=== PATIENT | female | born 1975 | race Caucasian/White ===

== ENCOUNTER 2016-06-12 08:20 | Inpatient (IN) ==
[2016-06-12] MEDS ORDERED: Ipratropium/Albuterol Neb 3 ML IH ONE (08:33)
[2016-06-12] MEDS ORDERED: methylPREDNISolone 125 MG/2 ML VIAL IVP ONE (08:33)
--- NOTE | 2016-06-12 08:55 | Emergency Department Note ---
Disposition Clinical Impression: Wheezing, Asthma exacerbation Dyspnea Qualifiers: Dyspnea type: unspecified Qualified Code(s): R06.00 - Dyspnea, unspecified Disposition: Admitted As Inpatient Condition: Fair Time of Disposition: 10:21 SOB HPI - General Chief Complaint: ED Shortness of Breath/Dyspnea Stated Complaint: difficulty breathing/cough Time Seen by Provider: 06/12/16 08:25 Source: patient Limitations: no limitations Nursing Notes Reviewed: Yes Vital Signs Reviewed: Yes - History of Present Illness Patient is a 41-year-old female who presents to [facility] ED with a chief complaint of difficulty breathing. States her symptoms started on Monday, June 07. States her father was diagnosed with influenza on Monday. States her mother was diagnosed with influenza and then intubated and sent to ICU and also diagnosed with influenza. Past medical history significant for asthma for which she takes an inhaler. States she has been using her albuterol breathing treatments every 4 hours as well as her albuterol inhaler in between. States she is having more and more troubles breathing. Patient arrives with oxygen saturation 97% on room air. She does have diffuse audible wheezing throughout bilateral lungs. Patient states she has never been intubated or required any hospitalization for her asthma. Patient is a nonsmoker. Pt Subjective Complaint: shortness of breath Onset (ago): day(s) Context: recent illness Severity: moderate Consistency/Duration: gradually worsening Improves with: nothing Worsens with: exertion Known history of: asthma Associated symptoms: Reports: chest pain, fever, cough. Denies: nausea/vomiting , abdominal pain Treatment prior to arrival: bronchodilator Cough present: Yes Cough Description: Involuntary Cough Frequency: Intermittent Sputum production: No Sputum Amount: Small Sputum Color: Birdsong Tinged - Related Data Home oxygen amount: none Home Medications Medication Instructions Recorded Confirmed Amlodipine Besylate [Norvasc] 5 mg PO BID 10/14/14 06/12/16 OxyCODONE/APAP 10/325 [Percocet 1 tab PO Q6H PRN 10/14/14 06/12/16 10/325] Promethazine [Phenergan] 25 mg PO Q6HR PRN 11/05/14 06/12/16 SUMAtriptan [Imitrex] 100 mg PO AD PRN 05/26/15 06/12/16 Albuterol Sulfate [Ventolin Hfa] 1 - 2 puff IH Q6H PRN 06/12/16 06/12/16 Budesonide/Formoterol 160/4.5 2 puff IH BID 06/12/16 06/12/16 [Symbicort 160/4.5] Metoprolol XL (24 HR) Succ [Toprol 25 mg PO DAILY 06/12/16 06/12/16 XL] Previous Rx's Medication Instructions Recorded Pantoprazole Sodium [Protonix] 40 mg PO BID #60 granpkt. 10/18/14 Allergies Allergy/AdvReac Type Severity Reaction Status Date / Time aspirin [ASA] Allergy See Verified 04/22/16 00:06 Comments Barbiturates Allergy Hives Verified 04/22/16 00:06 diphenhydramine Allergy Abdominal Verified 04/22/16 00:06 [From Benadryl] Pain ketorolac [From Toradol] Allergy See Verified 04/22/16 00:06 Comments NSAIDS (Non-Steroidal Allergy See Verified 04/22/16 00:06 Anti-Inflamma Comments Penicillins Allergy Swelling Verified 04/22/16 00:06 of Lip/Tongue/Throat Sulfa (Sulfonamide Allergy Hives Verified 04/22/16 00:06 Antibiotics) All systems ED: reviewed and negative except as stated. Past Medical History - Past Medical History Attestation: Yes The following information was validated with the patient. Source: patient Medical history: Reports: asthma, hypertension Surgical history: Reports: cholecystectomy, , appendectomy Psychiatric history: Reports: no psych history PROJECT CONSTRUCTION MANAGER history: Reports: no PROJECT CONSTRUCTION MANAGER history - Social History Smoking Status: Never smoker Smokeless Tobacco Status: No Alcohol use: Reports: none Drug use: Reports: none Physical Exam - General Limitations: no limitations General appearance: alert, in no apparent distress - Head Head exam: atraumatic, normocephalic, normal inspection - Eye Eye exam: Present: normal appearance, PERRL, EOMI - ENT ENT exam: normal exam, normal oropharynx, mucous membranes moist - Neck Neck exam: Present: normal inspection, full ROM, trachea midline - Chest Chest inspection: Present: normal inspection, symmetric chest wall rise - Respiratory Respiratory exam: Present: wheezes (diffusely b/l) - Cardiovascular Cardiovascular exam: Present: normal rhythm, tachycardia - Abdominal Exam Abdominal exam: Present: soft, Non-Tender. Absent: tenderness, distention, guarding, rebound, rigidity - Extremities Exam Extremities exam: Present: normal inspection, full ROM. Absent: tenderness, pedal edema - Back Exam Back exam: Present: normal inspection, full ROM. Absent: tenderness - Neurological Exam Neurological exam: Present: alert, oriented X3 - Psychiatric Psychiatric exam: Present: normal affect, normal mood - Skin Skin exam: Present: warm, dry, intact, normal color Course Course Narrative: Patient seen and examined. Patient with history of asthma and difficulty breathing. Recent contacts with influenza. Cardiopulmonary workup initiated. She is not in respiratory distress but due to her diffuse wheezing, and her persistent usage of her nebulizer machine every 4 hours at home, there is possibility of further decompensation at home. We will reassess after her triple duoneb breathing treatment. Patient apparently unable to take steroids due to her history of acute intermittent porphyria. - Reevaluation(s) Reevaluation #1: Lab work and chest x-ray unremarkable. Patient still is having diffuse wheezing throughout her lungs. Influenza testing was negative though she states it was initially negative for her mother as well. Due to her history of asthma and her already frequent usage of her nebulizer at home, I believe it is better to bring her in for observation to monitor for any further respiratory decline. Her oxygen status is stable at this time at 96% on room air. I spoke with hospitalist Dr. Castro was accepted patient for admission. I did also order another triple albuterol nebulizer for the patient. Time: 10:17 Vital Signs Temperature 98.7 F 06/12/16 08:23 Pulse Rate 100 06/12/16 08:23 Respiratory Rate 18 06/12/16 08:23 Blood Pressure 142/76 06/12/16 08:23 O2 Sat by Pulse Oximetry 98 06/12/16 08:23 Temperature 98.3 F 06/12/16 14:29 Pulse Rate 96 06/12/16 14:29 Respiratory Rate 18 06/12/16 14:29 Blood Pressure 116/73 06/12/16 14:29 O2 Sat by Pulse Oximetry 93 06/12/16 14:29 Oxygen Delivery Oxygen Delivery Room Air Shortness of Breath/Dyspnea - Medical Records Medical records reviewed: Yes I reviewed the patient's medical records. - Lab Data Lab results reviewed: Yes I reviewed the patient's lab results. Result diagrams: 06/12/16 08:55 06/12/16 08:55 - Radiology Data Radiology results reviewed: Yes I reviewed the patient's radiology results. Chest X-Ray 06/12/16 08:35 IMPRESSION: No acute cardiopulmonary process. D/ / 06/12/2016 09:21:43 Luis Angel Patel MD / bairon Interpreting Provider: Luis Angel Patel MD - EKG Data EKG attestation: Yes I reviewed and interpreted this EKG. EKG results narrative: EKG done at 833 shows normal sinus rhythm with a rate of 95 bpm. QTc interval 434. No acute ST elevation or depression. There are inverted T waves in leads V1 and V2. These are unchanged from prior EKG done August or 2016. Attestation Statement - Attestation Attestation: I examined this patient and my medical decision-making was reviewed with the LACE AND TEXTILES RESTORER/PA/Advanced Practice Nurse/Resident Physician. I agree with the documented findings, disposition and treatment plan as described except to the extent set forth below. 41-year-old female presents with concerns of difficulty breathing. Patient states that her symptoms have worsened over the past few days. She has a history of asthma. Multiple family members have been diagnosed with influenza B. Patient has audible wheezing during the evaluation. She states she is unable to take prednisone due to acute intermittent porphyria. Patient given breathing treatments of improvement emergency Department however she is visibly dyspneic with conversation and wheezing present bilateral posterior lung de la cruz. Chest x-ray is not show acute infiltrate. Patient will be admitted to the hospital for treatment of her dyspnea with continued DuoNeb times and possible need for BiPAP.
[2016-06-12 09:02] LABS: Basophils % 0.3 %; Eosinophils # 0.1 K/mcL (0.0-0.6); Eosinophils % 3.4 %; Hematocrit 32.9 % (35.3-44.9); Hemoglobin 10.7 g/dL (11.5-15.4); Immature Granulocytes % 0.3 % (0-4); Immature Platelets 2.5 % (1.1-6.1); Lymphocytes # 1.5 K/mcL (0.6-4.6); Mean Corpuscular HGB Conc 32.5 g/dL (31.6-35.5); Mean Corpuscular Volume 89.2 fL (83.0-100.0); Mean Platelet Volume 9.6 fL (9.4-12.4); Monocytes # 0.2 K/mcL (0.0-1.3); Monocytes % 5.1 %; Neutrophils # 1.8 K/mcL (1.6-8.9); Platelet Count 175 K/mcL (140-400); Red Blood Count 3.69 M/mcL (3.82-4.97); Red Cell Distribution Width 13.2 % (11.5-14.5); Segmented Neutrophils % 49.9 %
[2016-06-12 09:14] LABS: BUN/Creatinine Ratio 16 (6-26); Blood Urea Nitrogen 12 mg/dL (7-20); Calcium 8.8 mg/dL (8.6-10.8); Carbon Dioxide 21 mEq/L (19-29); Chloride 110 mEq/L (98-109); Glucose 96 mg/dL (70-99); Osmolality,Calculated 294 (280-300); Potassium 3.8 mEq/L (3.5-4.5); Sodium 142 mEq/L (136-145); eGFR For African Americans > 60 (> 60); eGFR For Non-African Americans > 60 (> 60)
[2016-06-12] MEDS ORDERED: Albuterol 2.5 MG/3 ML NEBULIZER IH ONE (10:04)
[2016-06-12] MEDS ORDERED: Mag Hydrox/Al Hydrox/Simeth 30 ML UDC PO PRN (10:21)
[2016-06-12] MEDS ORDERED: Naloxone 0.4 MG/ML INJ IVP PRN (10:21)
[2016-06-12] MEDS ORDERED: MOM Conc 10 ML UD.LIQ PO PRN (10:21)
[2016-06-12] MEDS ORDERED: Acetaminophen 325 MG TABLET PO PRN (10:21)
[2016-06-12] MEDS ORDERED: Albuterol 2.5 MG/3 ML NEBULIZER IH PRN (10:27)
[2016-06-12] MEDS: Ipratropium/Albuterol Neb 3 ML IH SCH ×4 (11:03→22:54)
--- NOTE | 2016-06-12 11:40 | Internal Med History&Physical ---
Date of Encounter: 06/12/16 Time of Encounter: 10:45 Assessment and Plan (1) Asthma with status asthmaticus Current visit: Yes Status: Acute Pt has not returned to baseline after multiple treatments. Remains quite dyspneic and has significant wheezing, especially in upper airway. Unable to receive steroids per patient. Placed in observation. Frequent aerosols ordered as well as oxygen PRN, cough suppressant, expectorant, supportive care. I suspect influenza and though she is more than 48 hours from start of illness she remains febrile. Tamiflu started and respiratory panel ordered. She is high risk for potential respiratory compromise at this point. Qualifiers: Asthma severity: mild intermittent Qualified Code(s): J45.22 - Mild intermittent asthma with status asthmaticus (2) Influenza Current visit: Yes Status: Suspected Tamiflu started even though over 48 hours as patient remains febrile. Respiratory panel ordered and can d/c Tamiflu and isolation if negative. (3) Acute intermittent porphyria Current visit: Yes Status: Chronic Pt has chronic disease and has acute exacerbations with acute illnesses. IV fluids started. May ultimately need stronger pain meds and per her report - IV D10. (4) Morbid obesity with BMI of 40.0-44.9, adult Current visit: No Status: Chronic Supportive care. (5) Hypertension Current visit: No Status: Chronic Continue home medications. Qualifiers: Hypertension type: essential hypertension Qualified Code(s): I10 - Essential (primary) hypertension Internal Medicine - H&P: HPI Chief complaint: Cough and shortness of breath Admitted From: Emergency Dept Plans for Post Hospital Care: Home History of present illness: Ms. Morris is a 41 year old female with hx of asthma (mild intermittent) and acute intermittent porphyria presented to ED with approximately 5 day history of cough, dyspnea and fever. Due to AIP she does not get influenza vaccine. She began to feel achy and feverish on Wednesday 06/07. Tmax was 104. She took Tylenol with some relief. Gradually she had increasing dyspnea and cough. Last night she coughed hard enough to bring up a small amount of blood and had temperature greater than 102 at 0230 today. Both her parents became ill later this past week and her mother ultimately was intubated 2 days ago. Both parents tested positive for influenza. Patient's rapid influenza was negative in ED. She also has noticed a small amount of abdominal pain and nausea which is consistent with her bouts of AIP. She usually has a flare up when she is ill and gets abdominal pain, nausea with emesis and can have fevers as well. Usually she needs IV fluids (D10) and IV pain medications and antiemetics (she does not feel the need for IV pain meds at this time). She is unable to take multiple medications including steroids. At this time her biggest issue is cough. She feels it mostly in her upper chest. She feels dyspneic as well. Stated Phenergan with codeine has helped as she is unable to take most OTC cough syrups. Past Med Surg Social Fam HX - Past Medical History Attestation: Yes The following information was validated with the patient. Source: patient Medical history: asthma, hypertension, other (Acute intermittent porphyria) Psychiatric history: no psych history - Past Surgical History Surgical History: appendectomy, , cholecystectomy, other (bilateral oophorectomy; complete dental extraction) - Social History Smoking Status: Never smoker Smokeless Tobacco Status: No Alcohol use: none Drug use: none Current living situation: Home - Independent Activity Level: Independent ambulation Recent Out of Country Travel Within the Last 8 Weeks: No Exposure or Possible Exposure to Illness During Travel: No - Family History Father Adopted: No Living Status: Still Living Hx Family Cardiac Disorders: Yes (HTN, HDL) Hx Family Respiratory Disorders: No Hx Family Cancer: No Hx Family GI Disorders: Yes (Ulcers) Hx Family Endocrine Disorder: Yes (kidney stones) Hx Family Neuromuscular Disorders: No Hx Family Neurologic Disorders: No Hx Family HEENT Disorders: No Hx Family Autoimmune Disorders: No Sister Living Status: Still Living Hx Family Cardiac Disorders: Yes (HTN) Mother Adopted: No Family Member Ethnicity: Non- Living Status: Still Living Hx Family Cardiac Disorders: Yes (HTN,) Hx Family Respiratory Disorders: Yes (COPD) Hx Family Cancer: No Hx Family GI Disorders: Yes (ulcers) Hx Family Endocrine Disorder: Yes (renal stent, DM) Hx Family Neuromuscular Disorders: No Hx Family Neurologic Disorders: No Hx Family HEENT Disorders: No Hx Family Autoimmune Disorders: No Internal Medicine - H&P: Meds Amlodipine Besylate [Norvasc] 5 mg PO BID 10/14/14 [History] OxyCODONE/APAP 10/325 [Percocet 10/325] 1 tab PO Q6H PRN 10/14/14 [History] Pantoprazole Sodium [Protonix] 40 mg PO BID #60 granpkt. 10/18/14 [Rx] Promethazine [Phenergan] 25 mg PO Q6HR PRN 11/05/14 [History] SUMAtriptan [Imitrex] 100 mg PO AD PRN 05/26/15 [History] Albuterol Sulfate [Ventolin Hfa] 1 - 2 puff IH Q6H PRN 06/12/16 [History] Budesonide/Formoterol 160/4.5 [Symbicort 160/4.5] 2 puff IH BID 06/12/16 [ History] Metoprolol XL (24 HR) Succ [Toprol XL] 25 mg PO DAILY 06/12/16 [History] Allergies aspirin [ASA] Allergy (Verified 04/22/16 00:06) See Comments Barbiturates Allergy (Verified 04/22/16 00:06) Hives diphenhydramine [From Benadryl] Allergy (Verified 04/22/16 00:06) Abdominal Pain ketorolac [From Toradol] Allergy (Verified 04/22/16 00:06) See Comments blood disorder NSAIDS (Non-Steroidal Anti-Inflamma Allergy (Verified 04/22/16 00:06) See Comments blood disorder Penicillins Allergy (Verified 04/22/16 00:06) Swelling of Lip/Tongue/Throat Sulfa (Sulfonamide Antibiotics) Allergy (Verified 04/22/16 00:06) Hives All Systems PM: A 10-system review of systems was performed and is negative for pertinent findings except as documented above in the HPI. - Constitutional Constitutional: chills, fatigue, fever(s), lethargy, malaise - EENT Eyes: no blurry vision, no discharge, no dry eye Ears: no decreased hearing, no ear pain Nose, mouth and throat: dry mouth, no dysphagia, no odynophagia - Cardiovascular Cardiovascular ROS IM: dyspnea, no chest pain, no edema, no irregular heart rhythm - Respiratory Respiratory: cough, dyspnea, hemoptysis, dyspnea on exertion, wheezing, chest congestion - Gastrointestinal Gastrointestinal: abdominal pain, no change in bowel habits, no diarrhea, no hematemesis, no hematochezia, no melena - Genitourinary Genitourinary: no dysmenorrhea - Musculoskeletal Musculoskeletal ROS IM: myalgias, stiffness - Integumentary Integumentary IM: no erythema, no rash - Neurological Neurological ROS: no behavioral changes, no confusion, no convulsions, no focal weakness - Psychiatric Psychiatric: no confusion, no mood swings - Endocrine Endocrine IM: fatigue - Hematologic/Lymphatic Hematologic/Lymphatic: other (Acute intermittent porphyria) - Allergic/Immunologic Allergic/Immunologic: wheezing, no itchy eyes - Constitutional Vitals: Temp Pulse Resp BP Pulse Ox 98.5 F 68 18 119/78 96 06/12/16 11:03 06/12/16 11:03 06/12/16 11:03 06/12/16 11:03 06/12/16 11:03 General appearance: Present: A&O X 3, pleasant, answers questions appropriately Exam: Moderate distress due to cough and congestion - Head Head exam: Present: atraumatic, normocephalic - Eye Eye exam: Present: EOMI, normal appearance, PERRL, conjuntiva pink - ENT ENT exam: Present: mucous membranes dry, normal oropharynx Additional comments: edentulous - Neck Neck exam general surgery: Present: full ROM. Absent: lymphadenopathy, tenderness, nuchal rigidity - Respiratory Respiratory exam: Present: prolonged expiratory phase, wheezes, tachypnea - Cardiovascular Cardiovascular exam: Present: RRR. Absent: systolic murmur, tachycardia - GI/Abdominal GI/Abdominal exam: Present: soft. Absent: mass, tenderness Additional comments: Difficult to feel due to size - Extremities Exam Extremities exam: Present: full ROM, warm. Absent: joint swelling, pedal edema , tenderness - Neurological Exam Neurological exam: Present: alert, CN II-XII intact, oriented X3, no focal deficits - Psychiatric Psychiatric exam: Present: normal affect, normal mood - Skin Skin exam: Present: dry, warm. Absent: rash Internal Med - H&P Results - Labs CBC & Chem 7: 06/12/16 08:55 06/12/16 08:55
[2016-06-12] MEDS ORDERED: *HR* OxyCODONE/APAP 5/325 TABLET PO PRN (12:06)
[2016-06-12] MEDS ORDERED: *HR* Morphine 2 MG/ML SYRINGE IVP PRN (12:07)
[2016-06-12] MEDS: 0.9 % Sodium Chloride 1,000 ML IVC SCH ×2 (12:54→20:25)
[2016-06-12] MEDS: Ondansetron 4 MG/2 ML VIAL IVP PRN ×2 (12:54→22:34)
[2016-06-12] MEDS: Metoprolol XL (24 HR) Succ 25 MG TAB.ER.24H PO SCH (13:25)
[2016-06-12] MEDS: *HR* HYDROmorphone (PF) 1 MG/ML SYRINGE IVP PRN ×3 (13:25→20:30)
[2016-06-12] MEDS: Promethazine/Codeine Oral Sryup 5 ML UDC PO PRN ×2 (16:06→20:25)
[2016-06-12 17:38] LABS: Adenovirus Not Detected (Not Detect); Bordetella Pertussis Not Detected (Not Detect); Chlamydophila pneumoniae Not Detected (Not Detect); Coronavirus 229E Not Detected (Not Detect); Coronavirus HKU1 Not Detected (Not Detect); Coronavirus NL63 Not Detected (Not Detect); Coronavirus OC43 Not Detected (Not Detect); Human Metapneumovirus Not Detected (Not Detect); Human Rhinovirus/Enterovirus Not Detected (Not Detect); Influenza A Subtype 2009 H1 Not Detected (Not Detect); Influenza A Untypeable Not Detected (Not Detect); Influenza B Not Detected (Not Detect); Mycoplasma pneumoniae Not Detected (Not Detect); Parainfluenza Virus 1 Not Detected (Not Detect); Parainfluenza Virus 2 Not Detected (Not Detect); Parainfluenza Virus 3 Not Detected (Not Detect); Parainfluenza Virus 4 Not Detected (Not Detect); Respiratory Syncytial Virus Not Detected (Not Detect)
[2016-06-12] MEDS ORDERED: *HR* HYDROmorphone (PF) 1 MG/ML SYRINGE IVP STA (23:01)
[2016-06-13] MEDS: 0.9 % Sodium Chloride 1,000 ML IVC SCH ×5 (00:44→21:45)
[2016-06-13] MEDS: *HR* OxyCODONE Immed Rel 5 MG TABLET PO PRN ×4 (02:13→18:50)
[2016-06-13] MEDS: Promethazine/Codeine Oral Sryup 5 ML UDC PO PRN ×2 (02:13→06:17)
[2016-06-13] MEDS: Ipratropium/Albuterol Neb 3 ML IH SCH ×4 (03:49→21:29)
[2016-06-13] MEDS: *HR* HYDROmorphone (PF) 1 MG/ML SYRINGE IVP PRN ×5 (05:27→21:10)
[2016-06-13 05:43] LABS: Hematocrit 31.7 % (35.3-44.9); Hemoglobin 10.3 g/dL (11.5-15.4); Mean Corpuscular HGB Conc 32.5 g/dL (31.6-35.5); Mean Corpuscular Hemoglobin 29.4 pg (28.0-33.3); Mean Corpuscular Volume 90.6 fL (83.0-100.0); Mean Platelet Volume 9.8 fL (9.4-12.4); Platelet Count 168 K/mcL (140-400); Red Cell Distribution Width 13.7 % (11.5-14.5)
[2016-06-13 05:55] LABS: BUN/Creatinine Ratio 10 (6-26); Blood Urea Nitrogen 7 mg/dL (7-20); Calcium 8.1 mg/dL (8.6-10.8); Carbon Dioxide 22 mEq/L (19-29); Chloride 110 mEq/L (98-109); Glucose 94 mg/dL (70-99); Magnesium 1.7 mg/dL (1.6-2.6); Osmolality,Calculated 290 (280-300); Potassium 4.2 mEq/L (3.5-4.5); Sodium 141 mEq/L (136-145); eGFR For African Americans > 60 (> 60); eGFR For Non-African Americans > 60 (> 60)
[2016-06-13] MEDS: Metoprolol XL (24 HR) Succ 25 MG TAB.ER.24H PO SCH (08:12)
[2016-06-13] MEDS: Ondansetron 4 MG/2 ML VIAL IVP PRN (08:12)
[2016-06-13] MEDS ORDERED: *HR* HYDROmorphone (PF) 1 MG/ML SYRINGE IVP ONE (08:54)
[2016-06-13] MEDS: Levofloxacin 750 MG/150 ML 750 MG/150 ML BAG IVPB SCH (09:09)
[2016-06-13] MEDS ORDERED: Ipratropium/Albuterol Neb 3 ML IH PRN (09:38)
--- NOTE | 2016-06-13 09:39 | Internal Med Progress Note ---
Date of Encounter: 06/13/16 Time of Encounter: 08:30 - Assessment and plan (1) Asthma exacerbation Current Visit: Yes Status: Acute Assessment and plan: Likely secondary to URI Influenza screen negative However given persistent fevers and cough, will start Levaquin at this time continue O2 supplementation Bronchodilator support as needed Patient unable to tolerate steroids will monitor off steroid therapy Will continue to closely monitor follow blood cultures (2) Abdominal pain Current Visit: No Status: Acute Assessment and plan: Likely secondary to underlying chronic illness continue supportive care at this time Dilaudid 1mg IV q3h prn for severe pain Oxycodone prn moderate pain Zofran, Phenergan IV prn n/v will continue to closely monitor Qualifiers: Abdominal location: generalized Qualified Code(s): R10.84 - Generalized abdominal pain (3) Acute intermittent porphyria Current Visit: Yes Status: Chronic (4) DVT prophylaxis Current Visit: No Status: Acute Assessment and plan: Heparin SQ (5) Hypertension Current Visit: Yes Status: Acute Assessment and plan: BP within acceptable range despite being off antihypertensive therapy will restart home dose of Amlodipine if become hypertensive will continue to closely monitor Qualifiers: Hypertension type: essential hypertension Qualified Code(s): I10 - Essential (primary) hypertension (6) Morbid obesity with BMI of 45.0-49.9, adult Current Visit: Yes Status: Chronic - Subjective Interval history: Patient seen and examined at bedside. Resting in bed and reports of having severe abdominal pain which is inline with the chronic abd pain she gets anytime she is ill. She states her breathing is better however the abd pain is not controlled with the current pain regimen. Reports of associated nausea but no vomiting. Influenza screen negative but noted to have persistent fevers with cough. As per patient she is unable to tolerate steroids but respiratory status improving with bronchodilator support. - Constitutional Vitals: Temp Pulse Resp BP Pulse Ox 103.1 F H 110 18 125/68 88 06/13/16 07:07 06/13/16 07:07 06/13/16 08:36 06/13/16 07:07 06/13/16 08:36 General appearance: Present: A&O X 3, morbidly obese, no acute distress, answers questions appropriately - Head Head exam: Present: atraumatic, normocephalic - Eye Eye exam: Present: normal appearance. Absent: conjuntiva pink, sclera anicteric - Respiratory Respiratory exam: Absent: respiratory distress, wheezes Additional comments: Equal air entry bilaterally - Cardiovascular Cardiovascular exam: Present: RRR, +S1, +S2. Absent: diastolic murmur, gallop, rubs, systolic murmur - GI/Abdominal GI/Abdominal exam: Present: distended (obese), normal bowel sounds, soft, no peritoneal signs. Absent: tenderness - Extremities Exam Extremities exam: Present: warm, radial pulses palpable and symetrical. Absent : calf tenderness, cyanotic, pedal edema - Neurological Exam Neurological exam: Present: alert, oriented X3 - Psychiatric Psychiatric exam: Present: normal affect, normal mood Internal Medicine: Result - Labs CBC & Chem 7: 06/13/16 05:25 06/13/16 05:25 Labs: Short CBC 06/13/16 Range/Units 05:25 WBC 6.0 D (4.3-11.1) K/mcL Hgb 10.3 L (11.5-15.4) g/dL Hct 31.7 L (35.3-44.9) % Plt Count 168 (140-400) K/mcL [facility] 06/13/16 05:25 Sodium 141 Potassium 4.2 Chloride 110 H Carbon Dioxide 22 BUN 7 Creatinine 0.73 Glucose 94 Calcium 8.1 L Consult Discharge Plan - Plan Referrals: Jasiel Cox DO [Primary Care Provider] -
[2016-06-13] MEDS: *HR* Promethazine 25 MG/ML VIAL IVP PRN ×2 (11:08→21:31)
--- NOTE | 2016-06-13 11:38 | Electrocardiograph Report ---
[address] [place], [place] [address] Test Date: 2016-06-12 Pat Name: Bev Morris Department: 104 Room: 3B Gender: F Communications Executive: : 1975 Requested By: Mandy Ibarra Order Number: [id number] Reading MD: Ruma Balderrama Measurements Intervals [place] Rate: 95 P: 15 WI: 147 QRS: -12 QRSD: 99 T: 7 QT: 382 QTc: 434 Interpretive Statements SINUS RHYTHM NONSPECIFIC ST ABNORMALITIES Electronically Signed On 06-13-2016 11:37:06 EDT by Ruma Balderrama
[2016-06-13] MEDS: Acetaminophen 325 MG TABLET PO PRN (12:18)
[2016-06-13] MEDS: *HR* Heparin 5,000 UNIT/ML VIAL SQ SCH ×2 (16:16→21:11)
[2016-06-13] MEDS: GuaiFENesin/Codeine Oral Soln 5 ML UDC PO PRN (18:51)
[2016-06-14] MEDS: GuaiFENesin/Codeine Oral Soln 5 ML UDC PO PRN ×3 (00:59→21:17)
[2016-06-14] MEDS: *HR* OxyCODONE Immed Rel 5 MG TABLET PO PRN ×4 (02:11→21:05)
[2016-06-14] MEDS: 0.9 % Sodium Chloride 1,000 ML IVC SCH ×3 (02:13→18:45)
[2016-06-14] MEDS: Acetaminophen 325 MG TABLET PO PRN (04:01)
[2016-06-14] MEDS: Ipratropium/Albuterol Neb 3 ML IH SCH ×4 (04:14→22:28)
[2016-06-14] MEDS: *HR* Promethazine 25 MG/ML VIAL IVP PRN ×3 (04:49→21:47)
[2016-06-14] MEDS: *HR* HYDROmorphone (PF) 1 MG/ML SYRINGE IVP PRN ×6 (04:49→21:48)
[2016-06-14] MEDS: *HR* Heparin 5,000 UNIT/ML VIAL SQ SCH ×3 (04:50→21:06)
[2016-06-14 04:55] LABS: Basophils % 0.3 %; Eosinophils % 0.6 %; Hematocrit 30.2 % (35.3-44.9); Hemoglobin 9.7 g/dL (11.5-15.4); Immature Granulocytes % 0.4 % (0-4); Lymphocytes % 14.7 %; Mean Corpuscular HGB Conc 32.1 g/dL (31.6-35.5); Mean Corpuscular Hemoglobin 29.7 pg (28.0-33.3); Mean Corpuscular Volume 92.4 fL (83.0-100.0); Mean Platelet Volume 9.9 fL (9.4-12.4); Monocytes # 0.4 K/mcL (0.0-1.3); Monocytes % 5.9 %; Neutrophils # 5.4 K/mcL (1.6-8.9); Platelet Count 177 K/mcL (140-400); Red Blood Count 3.27 M/mcL (3.82-4.97); Red Cell Distribution Width 13.8 % (11.5-14.5); Segmented Neutrophils % 78.1 %
[2016-06-14 05:07] LABS: BUN/Creatinine Ratio 9 (6-26); Blood Urea Nitrogen 6 mg/dL (7-20); Calcium 8.2 mg/dL (8.6-10.8); Carbon Dioxide 22 mEq/L (19-29); Chloride 108 mEq/L (98-109); Glucose 109 mg/dL (70-99); Magnesium 1.8 mg/dL (1.6-2.6); Osmolality,Calculated 286 (280-300); Phosphorous 1.8 mg/dL (2.3-4.7); Sodium 139 mEq/L (136-145); eGFR For African Americans > 60 (> 60); eGFR For Non-African Americans > 60 (> 60)
[2016-06-14] MEDS: amLODIPine 5 MG TABLET PO SCH ×2 (07:41→21:06)
[2016-06-14] MEDS: Metoprolol XL (24 HR) Succ 25 MG TAB.ER.24H PO SCH (07:41)
[2016-06-14] MEDS: Levofloxacin 750 MG/150 ML 750 MG/150 ML BAG IVPB SCH (07:41)
[2016-06-14] MEDS: Ondansetron 4 MG/2 ML VIAL IVP PRN (07:48)
[2016-06-14] MEDS ORDERED: Sodium Phosphate 30 MMOL in D5% in Water 100 ML IVPB ONE (08:20)
--- NOTE | 2016-06-14 13:25 | Internal Med Progress Note ---
Date of Encounter: 06/14/16 Time of Encounter: 12:30 - Assessment and plan (1) Asthma exacerbation Current Visit: Yes Status: Acute Assessment and plan: Likely secondary to URI Influenza screen negative However given persistent fevers and cough, will continue Levaquin at this time continue O2 supplementation Bronchodilator support as needed Patient unable to tolerate steroids will monitor off steroid therapy Will continue to closely monitor follow blood cultures (2) Abdominal pain Current Visit: No Status: Acute Assessment and plan: Likely secondary to underlying chronic illness continue supportive care at this time Dilaudid 1mg IV q3h prn for severe pain Oxycodone prn moderate pain Zofran, Phenergan IV prn n/v will continue to closely monitor Will obtain CT abd/pelvis Qualifiers: Abdominal location: generalized Qualified Code(s): R10.84 - Generalized abdominal pain (3) Acute intermittent porphyria Current Visit: Yes Status: Chronic (4) DVT prophylaxis Current Visit: No Status: Acute Assessment and plan: Heparin SQ (5) Hypertension Current Visit: Yes Status: Acute Assessment and plan: BP within acceptable range continue home medications will continue to closely monitor Qualifiers: Hypertension type: essential hypertension Qualified Code(s): I10 - Essential (primary) hypertension (6) Morbid obesity with BMI of 45.0-49.9, adult Current Visit: Yes Status: Chronic (7) Hypophosphatemia Current Visit: Yes Status: Acute Assessment and plan: Phos supplemented continue to monitor electrolytes and replace as needed - Subjective Interval history: Patient seen and examined at bedside. Reports of having improvement in her respiratory status however continues to have worsening diffuse abd pain associated with nausea but no vomiting. States this pain is consistent with her prior episodes. Noted to be febrile overnight with Tmax of 101.9. Denies any fever, chills, diarrhea, or constipation. States she is able to tolerate PO intake and is having regular bowel movements. - Constitutional Vitals: Temp Pulse Resp BP Pulse Ox 97.3 F L 62 14 109/66 94 06/14/16 11:47 06/14/16 11:47 06/14/16 11:47 06/14/16 11:47 06/14/16 11:47 General appearance: Present: A&O X 3, morbidly obese, no acute distress, answers questions appropriately - Head Head exam: Present: atraumatic, normocephalic - Eye Eye exam: Present: normal appearance, conjuntiva pink, sclera anicteric - Respiratory Respiratory exam: Present: CTAB. Absent: accessory muscle use, rales, rhonchi, wheezes - Cardiovascular Cardiovascular exam: Present: RRR, +S1, +S2. Absent: diastolic murmur, gallop, rubs, systolic murmur - GI/Abdominal GI/Abdominal exam: Present: normal bowel sounds, soft, no peritoneal signs. Absent: distended, tenderness - Extremities Exam Extremities exam: Present: warm, radial pulses palpable and symetrical. Absent : calf tenderness, cyanotic, pedal edema - Neurological Exam Neurological exam: Present: alert, oriented X3 - Psychiatric Psychiatric exam: Present: normal affect, normal mood Internal Medicine: Result - Labs CBC & Chem 7: 06/14/16 04:00 06/14/16 04:00 Labs: Short CBC 06/14/16 Range/Units 04:00 WBC 6.9 (4.3-11.1) K/mcL Hgb 9.7 L (11.5-15.4) g/dL Hct 30.2 L (35.3-44.9) % Plt Count 177 (140-400) K/mcL Neutrophils # 5.4 (1.6-8.9) K/mcL BMP 06/14/16 04:00 Sodium 139 Potassium 4.0 Chloride 108 Carbon Dioxide 22 BUN 6 L Creatinine 0.68 Glucose 109 H Calcium 8.2 L Consult Discharge Plan - Plan Referrals: Jasiel Cox DO [Primary Care Provider] - 06/20/16 1:30 pm
[2016-06-15] MEDS: *HR* HYDROmorphone (PF) 1 MG/ML SYRINGE IVP PRN ×6 (00:55→21:29)
[2016-06-15] MEDS: *HR* OxyCODONE Immed Rel 5 MG TABLET PO PRN ×4 (01:47→19:59)
[2016-06-15] MEDS: 0.9 % Sodium Chloride 1,000 ML IVC SCH ×4 (01:47→20:13)
[2016-06-15] MEDS: GuaiFENesin/Codeine Oral Soln 5 ML UDC PO PRN ×3 (04:28→20:13)
[2016-06-15] MEDS: Ipratropium/Albuterol Neb 3 ML IH SCH ×4 (04:34→22:36)
[2016-06-15] MEDS: *HR* Promethazine 25 MG/ML VIAL IVP PRN ×3 (04:58→19:59)
[2016-06-15 06:05] LABS: Basophils % 0.3 %; Eosinophils # 0.1 K/mcL (0.0-0.6); Eosinophils % 1.1 %; Hematocrit 29.6 % (35.3-44.9); Hemoglobin 9.2 g/dL (11.5-15.4); Immature Granulocytes % 0.7 % (0-4); Lymphocytes # 1.3 K/mcL (0.6-4.6); Lymphocytes % 21.9 %; Mean Corpuscular HGB Conc 31.1 g/dL (31.6-35.5); Mean Corpuscular Hemoglobin 29.1 pg (28.0-33.3); Mean Corpuscular Volume 93.7 fL (83.0-100.0); Mean Platelet Volume 10.4 fL (9.4-12.4); Monocytes # 0.4 K/mcL (0.0-1.3); Monocytes % 5.7 %; Neutrophils # 4.3 K/mcL (1.6-8.9); Platelet Count 178 K/mcL (140-400); Red Blood Count 3.16 M/mcL (3.82-4.97); Red Cell Distribution Width 13.7 % (11.5-14.5); Segmented Neutrophils % 70.3 %
[2016-06-15] MEDS: *HR* Heparin 5,000 UNIT/ML VIAL SQ SCH ×3 (06:23→21:29)
[2016-06-15 06:40] LABS: BUN/Creatinine Ratio 9 (6-26); Blood Urea Nitrogen 6 mg/dL (7-20); Calcium 8.5 mg/dL (8.6-10.8); Carbon Dioxide 24 mEq/L (19-29); Chloride 109 mEq/L (98-109); Glucose 103 mg/dL (70-99); Magnesium 2.1 mg/dL (1.6-2.6); Osmolality,Calculated 292 (280-300); Phosphorous 2.4 mg/dL (2.3-4.7); Potassium 3.9 mEq/L (3.5-4.5); Sodium 142 mEq/L (136-145); eGFR For African Americans > 60 (> 60); eGFR For Non-African Americans > 60 (> 60)
[2016-06-15] MEDS: Ondansetron 4 MG/2 ML VIAL IVP PRN (08:53)
[2016-06-15] MEDS: Levofloxacin 750 MG/150 ML 750 MG/150 ML BAG IVPB SCH (08:54)
[2016-06-15] MEDS: Metoprolol XL (24 HR) Succ 25 MG TAB.ER.24H PO SCH (08:54)
[2016-06-15] MEDS: amLODIPine 5 MG TABLET PO SCH ×2 (08:54→19:55)
--- NOTE | 2016-06-15 09:21 | Internal Med Progress Note ---
Date of Encounter: 06/15/16 Time of Encounter: 08:45 - Assessment and plan (1) Asthma exacerbation Current Visit: Yes Status: Acute Assessment and plan: Likely secondary to URI Influenza screen negative CT abd/pelvis reported bilateral Lower lobe PNA which likely contributed to the asthma exacerbation. Given persistent fevers, will add Vancomycin and continue Levaquin pharmacy to dose Vancomycin and monitor trough continue O2 supplementation Bronchodilator support as needed Patient unable to tolerate steroids will monitor off steroid therapy Will continue to closely monitor follow blood cultures (2) Pneumonia Current Visit: Yes Status: Acute Assessment and plan: Plan as listed above Qualifiers: Pneumonia type: due to unspecified organism Laterality: bilateral Lung location: lower lobe of lung Qualified Code(s): J18.9 - Pneumonia, unspecified organism (3) Abdominal pain Current Visit: No Status: Acute Assessment and plan: Likely secondary to underlying chronic illness continue supportive care at this time Dilaudid 1mg IV q3h prn for severe pain Oxycodone prn moderate pain Zofran, Phenergan IV prn n/v will continue to closely monitor CT abd/pelvis negative for acute abdominal pathology Qualifiers: Abdominal location: generalized Qualified Code(s): R10.84 - Generalized abdominal pain (4) Acute intermittent porphyria Current Visit: Yes Status: Chronic (5) DVT prophylaxis Current Visit: No Status: Acute Assessment and plan: Heparin SQ (6) Hypertension Current Visit: Yes Status: Acute Assessment and plan: BP within acceptable range continue home medications will continue to closely monitor Qualifiers: Hypertension type: essential hypertension Qualified Code(s): I10 - Essential (primary) hypertension (7) Morbid obesity with BMI of 45.0-49.9, adult Current Visit: Yes Status: Chronic (8) Hypophosphatemia Current Visit: Yes Status: Resolved - Subjective Interval history: Patient seen and examined at bedside. Respiratory status improved but continues to have diffuse abd pain associated with nausea no vomiting. CT abd/pelvis negative for any abd pathology however reported bilateral lower lobe pneumonia. Noted to be febrile overnight. - Constitutional Vitals: Temp Pulse Resp BP Pulse Ox 98.2 F 82 18 113/63 92 06/15/16 07:03 06/15/16 07:03 06/15/16 07:03 06/15/16 07:03 06/15/16 07:03 General appearance: Present: A&O X 3, morbidly obese, no acute distress, answers questions appropriately - Head Head exam: Present: atraumatic, normocephalic - Eye Eye exam: Present: normal appearance, conjuntiva pink, sclera anicteric - Respiratory Respiratory exam: Present: CTAB. Absent: accessory muscle use, rales, rhonchi, wheezes - Cardiovascular Cardiovascular exam: Present: RRR, +S1, +S2. Absent: diastolic murmur, gallop, rubs, systolic murmur - GI/Abdominal GI/Abdominal exam: Present: normal bowel sounds, soft, tenderness, no peritoneal signs. Absent: distended - Extremities Exam Extremities exam: Present: warm, radial pulses palpable and symetrical. Absent : calf tenderness, cyanotic, pedal edema - Neurological Exam Neurological exam: Present: alert, oriented X3 - Psychiatric Psychiatric exam: Present: normal affect, normal mood Internal Medicine: Result - Labs CBC & Chem 7: 06/15/16 05:05 06/15/16 05:05 Labs: Short CBC 06/15/16 Range/Units 05:05 WBC 6.1 (4.3-11.1) K/mcL Hgb 9.2 L (11.5-15.4) g/dL Hct 29.6 L (35.3-44.9) % Plt Count 178 (140-400) K/mcL Neutrophils # 4.3 (1.6-8.9) K/mcL BMP 06/15/16 05:05 Sodium 142 Potassium 3.9 Chloride 109 Carbon Dioxide 24 BUN 6 L Creatinine 0.67 Glucose 103 H Calcium 8.5 L - Impressions Impressions Abdomen/Pelvis CT 06/14/16 13:30 IMPRESSION: Bilateral lower lobe pneumonia, right greater than left Fatty liver. D/ / Harvinder Garcia MD / Harvinder Garcia MD Interpreting Provider: Harvinder Garcia MD Consult Discharge Plan - Plan Referrals: Jasiel Cox DO [Primary Care Provider] - 06/20/16 1:30 pm
[2016-06-15] MEDS: Vancomycin 2,000 MG in D5% in Water 500 ML IVPB SCH (10:43)
[2016-06-16] MEDS: *HR* OxyCODONE Immed Rel 5 MG TABLET PO PRN ×4 (00:12→21:41)
[2016-06-16] MEDS: Vancomycin 2,000 MG in D5% in Water 500 ML IVPB SCH ×2 (00:14→13:05)
[2016-06-16] MEDS: *HR* HYDROmorphone (PF) 1 MG/ML SYRINGE IVP PRN ×7 (00:36→23:35)
[2016-06-16] MEDS: GuaiFENesin/Codeine Oral Soln 5 ML UDC PO PRN ×4 (02:34→23:35)
[2016-06-16] MEDS: *HR* Promethazine 25 MG/ML VIAL IVP PRN ×3 (02:34→21:46)
[2016-06-16] MEDS: Ipratropium/Albuterol Neb 3 ML IH SCH ×4 (02:44→21:55)
[2016-06-16 04:56] LABS: BUN/Creatinine Ratio 9 (6-26); Blood Urea Nitrogen 6 mg/dL (7-20); Calcium 8.7 mg/dL (8.6-10.8); Carbon Dioxide 26 mEq/L (19-29); Chloride 108 mEq/L (98-109); Glucose 111 mg/dL (70-99); Magnesium 1.9 mg/dL (1.6-2.6); Osmolality,Calculated 296 (280-300); Phosphorous 3.3 mg/dL (2.3-4.7); Potassium 3.2 mEq/L (3.5-4.5); Sodium 144 mEq/L (136-145); eGFR For African Americans > 60 (> 60); eGFR For Non-African Americans > 60 (> 60)
[2016-06-16 05:30] LABS: Basophils % 0.2 %; Eosinophils # 0.1 K/mcL (0.0-0.6); Eosinophils % 2.8 %; Hematocrit 29.1 % (35.3-44.9); Hemoglobin 9.3 g/dL (11.5-15.4); Immature Granulocytes % 1.1 % (0-4); Immature Platelets 3.4 % (1.1-6.1); Lymphocytes # 1.5 K/mcL (0.6-4.6); Lymphocytes % 32.5 %; Mean Corpuscular Hemoglobin 29.2 pg (28.0-33.3); Mean Corpuscular Volume 91.5 fL (83.0-100.0); Mean Platelet Volume 10.1 fL (9.4-12.4); Monocytes # 0.3 K/mcL (0.0-1.3); Monocytes % 5.6 %; Neutrophils # 2.7 K/mcL (1.6-8.9); Platelet Count 185 K/mcL (140-400); Red Blood Count 3.18 M/mcL (3.82-4.97); Red Cell Distribution Width 13.5 % (11.5-14.5); Segmented Neutrophils % 57.8 %
[2016-06-16] MEDS: *HR* Heparin 5,000 UNIT/ML VIAL SQ SCH ×3 (05:53→21:42)
[2016-06-16] MEDS: Levofloxacin 750 MG/150 ML 750 MG/150 ML BAG IVPB SCH (09:39)
[2016-06-16] MEDS: Metoprolol XL (24 HR) Succ 25 MG TAB.ER.24H PO SCH (09:43)
[2016-06-16] MEDS: amLODIPine 5 MG TABLET PO SCH ×2 (09:43→21:40)
[2016-06-16] MEDS ORDERED: *HR* Promethazine 25 MG/ML VIAL IVP PRN (10:20)
--- NOTE | 2016-06-16 15:07 | Internal Med Progress Note ---
Date of Encounter: 06/16/16 Time of Encounter: 13:10 - Assessment and plan (1) Asthma exacerbation Current Visit: Yes Status: Acute Assessment and plan: Likely secondary to URI Influenza screen negative CT abd/pelvis reported bilateral Lower lobe PNA which likely contributed to the asthma exacerbation. Given persistent fevers, Continue Vancomycin and Levaquin pharmacy to dose Vancomycin and monitor trough continue O2 supplementation Bronchodilator support as needed Patient unable to tolerate steroids will monitor off steroid therapy Will continue to closely monitor follow blood cultures Will likely switch to PO abx therapy in am and likely discharge if remains stable overnight PT eval requested (2) Pneumonia Current Visit: Yes Status: Acute Assessment and plan: Plan as listed above Qualifiers: Pneumonia type: due to unspecified organism Laterality: bilateral Lung location: lower lobe of lung Qualified Code(s): J18.9 - Pneumonia, unspecified organism (3) Abdominal pain Current Visit: No Status: Acute Assessment and plan: Likely secondary to underlying chronic illness continue supportive care at this time Changed to Dilaudid 1mg IV q6h prn for severe pain Oxycodone prn moderate pain Zofran, Phenergan IV prn n/v will continue to closely monitor CT abd/pelvis negative for acute abdominal pathology Patient educated about the risks associated with continuous narcotic therapy, she demonstrates understanding. Qualifiers: Abdominal location: generalized Qualified Code(s): R10.84 - Generalized abdominal pain (4) Acute intermittent porphyria Current Visit: Yes Status: Chronic (5) DVT prophylaxis Current Visit: No Status: Acute Assessment and plan: Heparin SQ (6) Hypertension Current Visit: Yes Status: Acute Assessment and plan: BP within acceptable range continue home medications will continue to closely monitor Qualifiers: Hypertension type: essential hypertension Qualified Code(s): I10 - Essential (primary) hypertension (7) Morbid obesity with BMI of 45.0-49.9, adult Current Visit: Yes Status: Chronic (8) Electrolyte abnormality Current Visit: Yes Status: Acute Assessment and plan: Hypokalemia, K supplemented will continue to monitor electrolytes and replace as needed - Subjective Interval history: Patient seen and examined at bedside. Remained afebrile overnight. Continues to have diffuse abd pain, however reported to have drug seeking behavior as per the nursing staff. Will continue IV abx for one more day and obtain PT eval. Likely d/c in am. - Constitutional Vitals: Temp Pulse Resp BP Pulse Ox 98.1 F 86 15 145/84 98 06/16/16 11:32 06/16/16 11:32 06/16/16 11:32 06/16/16 11:32 06/16/16 11:32 General appearance: Present: A&O X 3, morbidly obese, no acute distress, answers questions appropriately - Head Head exam: Present: atraumatic, normocephalic - Eye Eye exam: Present: normal appearance, conjuntiva pink, sclera anicteric - Respiratory Respiratory exam: Present: CTAB. Absent: accessory muscle use, rales, rhonchi, wheezes - Cardiovascular Cardiovascular exam: Present: RRR, +S1, +S2. Absent: diastolic murmur, gallop, rubs, systolic murmur - GI/Abdominal GI/Abdominal exam: Present: normal bowel sounds, soft, no peritoneal signs. Absent: distended, tenderness - Extremities Exam Extremities exam: Present: warm, radial pulses palpable and symetrical. Absent : calf tenderness, pedal edema - Neurological Exam Neurological exam: Present: alert, oriented X3 - Psychiatric Psychiatric exam: Present: normal affect, normal mood Internal Medicine: Result - Labs CBC & Chem 7: 06/16/16 03:47 06/16/16 03:47 Labs: Short CBC 06/16/16 Range/Units 03:47 WBC 4.7 (4.3-11.1) K/mcL Hgb 9.3 L (11.5-15.4) g/dL Hct 29.1 L (35.3-44.9) % Plt Count 185 (140-400) K/mcL Neutrophils # 2.7 (1.6-8.9) K/mcL BMP 06/16/16 03:47 Sodium 144 Potassium 3.2 L Chloride 108 Carbon Dioxide 26 BUN 6 L Creatinine 0.68 Glucose 111 H Calcium 8.7 Consult Discharge Plan - Plan Referrals: Jasiel Cox DO [Primary Care Provider] - 06/20/16 1:30 pm Prescriptions: Penciclovir [Denavir] 1.5 gm TP Q4H #1 tub
[2016-06-17] MEDS: Vancomycin 2,000 MG in D5% in Water 500 ML IVPB SCH (01:19)
[2016-06-17 03:20] LABS: Basophils % 0.2 %; Eosinophils # 0.2 K/mcL (0.0-0.6); Eosinophils % 3.5 %; Hematocrit 30.6 % (35.3-44.9); Immature Granulocytes % 1.4 % (0-4); Lymphocytes # 1.7 K/mcL (0.6-4.6); Lymphocytes % 39.3 %; Mean Corpuscular HGB Conc 32.7 g/dL (31.6-35.5); Mean Corpuscular Hemoglobin 29.5 pg (28.0-33.3); Mean Corpuscular Volume 90.3 fL (83.0-100.0); Mean Platelet Volume 9.7 fL (9.4-12.4); Monocytes # 0.4 K/mcL (0.0-1.3); Monocytes % 8.2 %; Nucleated Red Blood Cells 0.5 /100 WBC (0); Platelet Count 254 K/mcL (140-400); Red Blood Count 3.39 M/mcL (3.82-4.97); Red Cell Distribution Width 13.4 % (11.5-14.5); Segmented Neutrophils % 47.4 %
[2016-06-17 03:37] LABS: BUN/Creatinine Ratio 9 (6-26); Blood Urea Nitrogen 7 mg/dL (7-20); Calcium 9.2 mg/dL (8.6-10.8); Carbon Dioxide 25 mEq/L (19-29); Chloride 105 mEq/L (98-109); Glucose 119 mg/dL (70-99); Magnesium 1.9 mg/dL (1.6-2.6); Osmolality,Calculated 291 (280-300); Potassium 3.6 mEq/L (3.5-4.5); Sodium 141 mEq/L (136-145); eGFR For African Americans > 60 (> 60); eGFR For Non-African Americans > 60 (> 60)
[2016-06-17] MEDS: *HR* OxyCODONE Immed Rel 5 MG TABLET PO PRN ×2 (03:37→09:04)
[2016-06-17 03:39] LABS: Phosphorous 5.5 mg/dL (2.3-4.7)
[2016-06-17] MEDS: Ipratropium/Albuterol Neb 3 ML IH SCH ×2 (04:37→10:38)
[2016-06-17] MEDS: *HR* Heparin 5,000 UNIT/ML VIAL SQ SCH (05:42)
[2016-06-17] MEDS: GuaiFENesin/Codeine Oral Soln 5 ML UDC PO PRN ×2 (05:42→11:36)
[2016-06-17] MEDS: *HR* HYDROmorphone (PF) 1 MG/ML SYRINGE IVP PRN ×2 (05:42→11:36)
[2016-06-17] MEDS ORDERED: Vancomycin 1,750 MG in D5% in Water 500 ML IVPB SCH (09:00)
[2016-06-17] MEDS: Levofloxacin 750 MG/150 ML 750 MG/150 ML BAG IVPB SCH (09:03)
[2016-06-17] MEDS: amLODIPine 5 MG TABLET PO SCH (09:04)
[2016-06-17] MEDS: Metoprolol XL (24 HR) Succ 25 MG TAB.ER.24H PO SCH (09:04)
[2016-06-17 10:45] VITALS: BP 124/71
--- NOTE | 2016-06-17 13:31 | Discharge Summary ---
Date of Encounter: 06/17/16 Time of Encounter: 12:10 - Discharge Diagnosis (1) Asthma exacerbation Priority: Primary Status: Acute (2) Pneumonia Priority: Primary Status: Acute Qualifiers: Pneumonia type: due to unspecified organism Laterality: bilateral Lung location: lower lobe of lung Qualified Code(s): J18.9 - Pneumonia, unspecified organism (3) Abdominal pain Priority: Secondary Status: Resolved Qualifiers: Abdominal location: generalized Qualified Code(s): R10.84 - Generalized abdominal pain (4) Acute intermittent porphyria Priority: Secondary Status: Chronic (5) DVT prophylaxis Priority: Secondary Status: Acute (6) Hypertension Priority: Secondary Status: Chronic Qualifiers: Hypertension type: essential hypertension Qualified Code(s): I10 - Essential (primary) hypertension (7) Morbid obesity with BMI of 45.0-49.9, adult Priority: Secondary Status: Chronic (8) Electrolyte abnormality Priority: Secondary Status: Resolved - Discharge Medications Prescriptions: Penciclovir [Denavir] 1.5 gm TP Q4H #1 tub Home Medications: Amlodipine Besylate [Norvasc] 5 mg PO BID 10/14/14 [History] OxyCODONE/APAP 10/325 [Percocet 10/325] 1 tab PO Q6H PRN 10/14/14 [History] Pantoprazole Sodium [Protonix] 40 mg PO BID #60 glorykt 10/18/14 [Rx] Promethazine [Phenergan] 25 mg PO Q6HR PRN 11/05/14 [History] SUMAtriptan [Imitrex] 100 mg PO AD PRN 05/26/15 [History] Albuterol Sulfate [Ventolin Hfa] 1 - 2 puff IH Q6H PRN 06/12/16 [History] Budesonide/Formoterol 160/4.5 [Symbicort 160/4.5] 2 puff IH BID 06/12/16 [ History] Metoprolol XL (24 HR) Succ [Toprol Xl] 25 mg PO DAILY 06/12/16 [History] Penciclovir [Denavir] 1.5 gm TP Q4H #1 tub 06/15/16 [Rx] Allergies/Adverse Reactions: Allergies aspirin [ASA] Allergy (Verified 04/22/16 00:06) See Comments Barbiturates Allergy (Verified 04/22/16 00:06) Hives diphenhydramine [From Benadryl] Allergy (Verified 04/22/16 00:06) Abdominal Pain ketorolac [From Toradol] Allergy (Verified 04/22/16 00:06) See Comments blood disorder NSAIDS (Non-Steroidal Anti-Inflamma Allergy (Verified 04/22/16 00:06) See Comments blood disorder Penicillins Allergy (Verified 04/22/16 00:06) Swelling of Lip/Tongue/Throat Sulfa (Sulfonamide Antibiotics) Allergy (Verified 04/22/16 00:06) Hives morphine Adverse Reaction (Verified 06/12/16 18:15) Abdominal Pain Steroids Adverse Reaction (Uncoded 06/12/16 18:14) Abdominal Pain Procedures/tests Complete & Pending: Procedures Performed prior 72 hours Category Date Time Status CT abd pelvis wo no iv no oral [CT] Routine Cat Scan 06/14/16 13:30 Completed Date of admission: 06/13/16 15:03 Primary care physician: Dylon Jansen Consults: 06/16/16 08:24 Consult to Physical Therapy [CONS] Stat Comment: Evaluate, develop and implement POC Discharging clinician: Yessenia Lepe Anticipated date of discharge: 06/17/16 - Patient Status Disposition: Home, Self-Care Condition: Good Functional capacity at discharge: independent ambulation Overall status at discharge: patient is back to baseline - Discharge Instructions Follow Up With: Jasiel Cox DO [Primary Care Provider] - 06/20/16 1:30 pm Additional Instructions: Please follow up with your primary care physician within one week after your discharge from the hospital. You have completed your antibiotic therapy for pneumonia while you were hospitalized. Please resume all your home medications as prescribed by your primary care physician. - Diet and Activity Activity: resume usual activities as tolerated Diet: low fat, low cholesterol, low salt diet Hospital course: Ms. Morris is a 41 year old female with PMH of asthma, acute intermittent porphyria, morbid obesity, hypertension who was admitted for management of acute respiratory distress. Patient was admitted for management of asthma exacerbation secondary to bilateral lower lobe pneumonia. She was started on empiric IV abx, oxygen therapy, and bronchodilator support. She reported of not being able to tolerate steroids due to which she was not started on any systemic steroids.Her hospital course was complicated by diffuse abd pain for which she required IV pain medications and supportive care. She reported of this being a chronic issue due to her chronic underlying porphyria. At this time she is hemodynamically stable, saturating well on room air, has finished five days of abx therapy. She will be discharged to home with follow up with PCP. Patient demonstrates understanding of her diagnosis and agrees with the discharge care plan. - Time Spent with Patient Total time spent providing and/or coordinating discharge services: Less than 30 minutes - Constitutional Vitals: Temp Pulse Resp BP Pulse Ox 97.4 F L 71 17 124/71 100 06/17/16 10:42 06/17/16 10:42 06/17/16 10:42 06/17/16 10:42 06/17/16 10:42 General appearance: Present: A&O X 3, morbidly obese, no acute distress, answers questions appropriately - Head Head exam: Present: atraumatic, normocephalic - Eye Eye exam: Present: normal appearance, conjuntiva pink, sclera anicteric - Respiratory Respiratory exam: Present: CTAB. Absent: accessory muscle use, rales, rhonchi, wheezes - Cardiovascular Cardiovascular exam: Present: RRR, +S1, +S2. Absent: diastolic murmur, gallop, rubs, systolic murmur - GI/Abdominal GI/Abdominal exam: Present: normal bowel sounds, soft, no peritoneal signs. Absent: distended, tenderness - Extremities Exam Extremities exam: Present: warm, radial pulses palpable and symetrical. Absent : calf tenderness, cyanotic, pedal edema - Neurological Exam Neurological exam: Present: alert, oriented X3, no focal deficits. Absent: pronater drift, facial droop, speech deficit - Psychiatric Psychiatric exam: Present: normal affect, normal mood
[2016-06-17] MEDS ORDERED: Aminoglycoside Consult 1 EACH MC ONE (15:09)
== END 2016-06-17 15:10 | disposition home or self-care (01) | DRG 194 ==
LOC: EMEROO 08:20 → 3BNU 08:20 → SUATTDRO 10:05 → 3BNU 10:35
PROVIDERS: ADMIT Internal Medicine; ATTEND Internal Medicine

== ENCOUNTER 2016-08-25 11:46 | Inpatient (IN) ==
[2016-08-25] MEDS ORDERED: *HR* HYDROmorphone (PF) 1 MG/ML SYRINGE IVP ONE ×2 (12:08→14:00)
[2016-08-25] MEDS ORDERED: Ondansetron 4 MG/2 ML VIAL IVP ONE (12:08)
--- NOTE | 2016-08-25 12:15 | Emergency Department Note ---
Disposition Clinical Impression: Intractable abdominal pain, Acute intermittent hepatic porphyria Disposition: Admitted As Inpatient Condition: Fair Referrals: NO,PCP [Non-Partnered Physician] - Forms: Work/School Release, ED Satisfaction Letter Abdominal Pain HPI - General Chief Complaint: ED Abdominal Pain Stated Complaint: ABd pain Source: patient Mode of arrival: ambulatory Limitations: no limitations Nursing Notes Reviewed: Yes Vital Signs Reviewed: Yes - History of Present Illness Pt Subjective Complaint: abdominal pain Onset (ago): week(s) (1) Consistency: constant Location: diffuse Pain Scale: 8 Quality: aching Radiation: none Migration to: no migration Improves with: nothing Worsens with: nothing Context: other (patient has intermittant porphyria) Associated symptoms: Reports: nausea, vomiting Treatments prior to arrival: prescription analgesics - Related Data Home Medications Medication Instructions Recorded Confirmed Amlodipine Besylate [Norvasc] 5 mg PO BID 10/14/14 06/12/16 OxyCODONE/APAP 10/325 [Percocet 1 tab PO Q6H PRN 10/14/14 06/12/16 10/325] Promethazine [Phenergan] 25 mg PO Q6HR PRN 11/05/14 06/12/16 SUMAtriptan succinate [Imitrex] 100 mg PO AD PRN 05/26/15 06/12/16 Albuterol Sulfate [Ventolin Hfa] 1 - 2 puff IH Q6H PRN 06/12/16 06/12/16 Budesonide/Formoterol 160/4.5 2 puff IH BID 06/12/16 06/12/16 [Symbicort 160/4.5] Metoprolol XL (24 HR) Succ [Toprol 25 mg PO DAILY 06/12/16 06/12/16 Xl] Previous Rx's Medication Instructions Recorded Pantoprazole Sodium [Protonix] 40 mg PO BID #60 glorykt 10/18/14 Penciclovir [Denavir] 1.5 gm TP Q4H #1 tub 06/15/16 Guaifenesin/Codeine Phosphate 5 ml PO Q4-6H PRN #118 ml 06/17/16 [Guaifen-Codeine 100-10 mg/5 ml] Benzonatate [Tessalon] 100 mg PO TID #30 capsule 06/28/16 Levofloxacin [Levaquin] 750 mg PO DAILY #10 tablet 06/28/16 Promethazine/Codeine 5 - 10 ml PO Q6HR #240 ml 06/28/16 [Phenergan/Codeine] HYDROcodone BIT/Homatropine LQ 5 mg PO Q4-6H PRN #100 syrup 06/30/16 [Hycodan Syrup] Allergies Allergy/AdvReac Type Severity Reaction Status Date / Time aspirin [ASA] Allergy See Verified 07/18/16 14:08 Comments Barbiturates Allergy Hives Verified 07/18/16 14:08 diphenhydramine Allergy Abdominal Verified 07/18/16 14:08 [From Benadryl] Pain ketorolac [From Toradol] Allergy See Verified 07/18/16 14:08 Comments NSAIDS (Non-Steroidal Allergy See Verified 07/18/16 14:08 Anti-Inflamma Comments Penicillins Allergy Swelling Verified 07/18/16 14:08 of Lip/Tongue/Throat Sulfa (Sulfonamide Allergy Hives Verified 07/18/16 14:08 Antibiotics) morphine AdvReac Abdominal Verified 07/18/16 14:08 Pain Steroids AdvReac Abdominal Uncoded 06/12/16 18:14 Pain All systems ED: reviewed and negative except as stated. Constitutional: Denies: fever, chills Cardiovascular: Denies: palpitations, dyspnea on exertion Gastrointestinal: Reports: abdominal pain, nausea, vomiting Abdominal Pain PMH - Past Medical History Medical history: Reports: asthma, hypertension, other Female Surgical History: Reports: appendectomy, , cholecystectomy, other [employer] history: Reports: no [employer] history Psychiatric history: Reports: no psych history - Social History Smoking status: Never smoker Alcohol use: Reports: none Drug use: Reports: none Physical Exam - General Limitations: no limitations General appearance: alert - Head Head exam: atraumatic, normocephalic, normal inspection - Eye Eye exam: Present: normal appearance, PERRL, EOMI - Expanded Eye Exam Pupils: Left: reactive - ENT ENT exam: normal exam, normal oropharynx, mucous membranes moist - Expanded ENT Exam External ear exam: Present: normal external inspection Mouth exam: Present: normal external inspection Teeth exam: Present: normal inspection Throat exam: Present: normal inspection - Neck Neck exam: Present: normal inspection, full ROM, trachea midline - Chest Chest inspection: Present: normal inspection, symmetric chest wall rise - Respiratory Respiratory exam: Present: normal lung sounds bilaterally - Cardiovascular Cardiovascular exam: Present: regular rate, normal rhythm, normal heart sounds - Abdominal Exam Abdominal exam: Present: soft, guarding Abdominal tenderness: Present: severe (with touching the stethescope on the patients abdomen) - Extremities Exam Extremities exam: Present: normal inspection, full ROM. Absent: tenderness, pedal edema - Expanded Upper Extremity Exam Shoulder exam: Present: normal inspection, full ROM Arm exam: Present: normal inspection, full ROM Elbow exam: Present: normal inspection, full ROM Forearm/Wrist exam: Present: normal inspection, full ROM Hand exam: Present: normal inspection, full ROM Vascular exam: Normal: capillary refill, radial pulse - Expanded Lower Extremity Exam Hip/Pelvis exam: Present: normal inspection, full ROM Upper leg exam: Present: normal inspection, full ROM Knee exam: Present: normal inspection, full ROM Lower leg exam: Present: normal inspection, full ROM Ankle exam: Present: normal inspection, full ROM Foot/toe exam: Present: normal inspection, full ROM Neurovascular/Tendon exam: Absent: motor deficit, sensory deficit, tendon deficit - Back Exam Back exam: Present: normal inspection, full ROM. Absent: tenderness - Neurological Exam Neurological exam: Present: alert, oriented X3 - Expanded Neurological Exam Patient oriented to: Present: person, place, time Coma Scale Eye Opening: Spontaneous Coma Scale Motor Response: Obeys Commands Coma Scale Verbal Response: Oriented Coma Scale Total: 15 - Psychiatric Psychiatric exam: Present: normal affect, normal mood - Skin Skin exam: Present: warm, dry, intact, normal color Course Vital Signs Temperature 98.1 F 08/25/16 11:47 Pulse Rate 99 08/25/16 11:47 Respiratory Rate 16 08/25/16 11:47 Blood Pressure 145/95 08/25/16 11:47 O2 Sat by Pulse Oximetry 97 08/25/16 11:47 Temperature 98.1 F 08/25/16 11:47 Pulse Rate 99 08/25/16 11:52 Respiratory Rate 16 08/25/16 11:52 Blood Pressure 145/95 08/25/16 11:52 O2 Sat by Pulse Oximetry 97 08/25/16 11:52 Oxygen Delivery Oxygen Delivery Room Air Abdominal Pain - Medical Records Medical records reviewed: Yes I reviewed the patient's medical records. - Lab Data Lab results reviewed: Yes I reviewed the patient's lab results. Result diagrams: 08/25/16 13:14 08/25/16 13:14 Lab Results 08/25/16 08/25/16 08/25/16 Range/Units 13:14 13:14 13:14 WBC 6.6 (4.3-11.1) K/mcL RBC 4.40 (3.82-4.97) M/mcL Hgb 13.4 (11.5-15.4) g/dL Hct 40.0 (35.3-44.9) % MCV 90.9 (83.0-100.0) fL MCH 30.5 (28.0-33.3) pg MCHC 33.5 (31.6-35.5) g/dL RDW 14.1 (11.5-14.5) % Plt Count 250 (140-400) K/mcL MPV 9.4 (9.4-12.4) fL Immature Gran % 0.3 (0-4) % Seg Neutrophils % 76.0 % Lymphocytes % 16.3 % Monocytes % 5.9 % Eosinophils % 1.2 % Basophils % 0.3 % Neutrophils # 5.0 (1.6-8.9) K/mcL Lymphocytes # 1.1 (0.6-4.6) K/mcL Monocytes # 0.4 (0.0-1.3) K/mcL Eosinophils # 0.1 (0.0-0.6) K/mcL Basophils # 0.0 (0.0-0.2) K/mcL Sodium 139 (136-145) mEq/L Potassium 4.3 (3.5-4.5) mEq/L Chloride 107 (98-109) mEq/L Carbon Dioxide 23 (19-29) mEq/L BUN 14 (7-20) mg/dL Creatinine 0.75 (0.57-1.11) mg/dL Est GFR ( Amer) > 60 (> 60) Est GFR (Non-Af Amer) > 60 (> 60) BUN/Creatinine Ratio 19 (6-26) Glucose 111 H (70-99) mg/dL Calculated Osmolality 289 (280-300) Lactic Acid 1.3 (0.5-2.2) mmol/L Calcium 9.9 (8.6-10.8) mg/dL Total Bilirubin 0.6 (0.2-1.2) mg/dL Direct Bilirubin 0.2 (0.0-0.5) mg/dL Indirect Bilirubin 0.4 (0.0-1.2) mg/dL AST 74 H (5-34) Units/L ALT 148 H (0-55) Units/L Alkaline Phosphatase 118 (38-126) Units/L Serum Total Protein 7.8 (6.0-8.3) g/dL Albumin 3.9 (3.5-5.0) g/dL Globulin 3.9 H (2.4-3.5) g/dL Albumin/Globulin Ratio 1.0 L (1.1-2.2) Amylase 27 (25-125) Units/L Lipase 7 L (8-78) Units/L
[2016-08-25] MEDS ORDERED: Dextrose 50 % in Water (Vial) 50 ML in D5% in 0.2% NACL 500 ML IVC SCH (13:05)
[2016-08-25 13:24] LABS: Basophils % 0.3 %; Eosinophils # 0.1 K/mcL (0.0-0.6); Eosinophils % 1.2 %; Hemoglobin 13.4 g/dL (11.5-15.4); Immature Granulocytes % 0.3 % (0-4); Lymphocytes # 1.1 K/mcL (0.6-4.6); Lymphocytes % 16.3 %; Mean Corpuscular HGB Conc 33.5 g/dL (31.6-35.5); Mean Corpuscular Hemoglobin 30.5 pg (28.0-33.3); Mean Corpuscular Volume 90.9 fL (83.0-100.0); Mean Platelet Volume 9.4 fL (9.4-12.4); Monocytes # 0.4 K/mcL (0.0-1.3); Monocytes % 5.9 %; Platelet Count 250 K/mcL (140-400); Red Cell Distribution Width 14.1 % (11.5-14.5)
[2016-08-25 13:39] LABS: Alanine Aminotransferase 148 Units/L (0-55); Albumin 3.9 g/dL (3.5-5.0); Alkaline Phosphatase 118 Units/L (38-126); Amylase 27 Units/L (25-125); Aspartate Amino Transferase 74 Units/L (5-34); BUN/Creatinine Ratio 19 (6-26); Bilirubin,Direct 0.2 mg/dL (0.0-0.5); Bilirubin,Indirect 0.4 mg/dL (0.0-1.2); Bilirubin,Total 0.6 mg/dL (0.2-1.2); Blood Urea Nitrogen 14 mg/dL (7-20); Calcium 9.9 mg/dL (8.6-10.8); Carbon Dioxide 23 mEq/L (19-29); Chloride 107 mEq/L (98-109); Globulin 3.9 g/dL (2.4-3.5); Glucose 111 mg/dL (70-99); Lipase 7 Units/L (8-78); Osmolality,Calculated 289 (280-300); Potassium 4.3 mEq/L (3.5-4.5); Sodium 139 mEq/L (136-145); Total Protein 7.8 g/dL (6.0-8.3); eGFR For African Americans > 60 (> 60); eGFR For Non-African Americans > 60 (> 60)
[2016-08-25] MEDS: D10% in 0.2 % NACL 250 ML IVC SCH ×4 (13:50→22:48)
[2016-08-25] MEDS ORDERED: *HR* Promethazine 25 MG/ML VIAL IVP ONE (14:00)
[2016-08-25] MEDS ORDERED: Naloxone 0.4 MG/ML INJ IVP PRN (16:42)
[2016-08-25 16:53] LABS: Bilirubin,Urine Negative (Negative); Blood,Urine Negative (Negative); Clarity,Urine Cloudy (Clear); Color,Urine Yellow (Yellow); Glucose,Urine (UA) Normal (Normal); Ketones,Urine Negative (Negative); Leukocyte Esterase,Urine Moderate (Negative); Nitrite,Urine Negative (Negative); PH,Urine 5.5 pH Units (5.0-8.0); Protein,Urine Negative (Neg-Trace); Specific Gravity,Urine 1.016 (1.010-1.025); Urobilinogen,Urine Normal (Normal)
[2016-08-25 16:56] LABS: Bacteria,Urine None Seen per hpf (None-Few); Hyaline Casts,Urine None Seen per lpf (None-Few); Squamous Epithelial Cell,Urine Many per lpf (None-Few); WBC,Urine 15-30 per hpf (0-3)
[2016-08-25 17:13] LABS: Amphetamine Screen,Urine Negative ng/mL (Cutoff=1000); Barbiturate Screen,Urine Negative ng/mL (Cutoff=200); Benzodiazepines Screen,Urine Negative ng/mL (Cutoff=200); Cannabinoid Screen,Urine Negative ng/mL (Cutoff = 50); Cocaine Screen,Urine Negative ng/mL (Cutoff= 300); Opiate Screen,Urine Positive ng/mL (Cutoff=300); Phencyclidine Screen,Urine Negative ng/mL (Cutoff=25)
[2016-08-25] MEDS: *HR* HYDROmorphone (PF) 1 MG/ML SYRINGE IVP PRN ×2 (18:36→22:47)
[2016-08-25] MEDS: Ondansetron 4 MG/2 ML VIAL IVP PRN (18:40)
[2016-08-25] MEDS: Budesonide/Formoterol 160/4.5 MDI IH SCH (19:25)
--- NOTE | 2016-08-25 20:04 | Event Note ---
Date of Encounter: 08/25/16 Time of Encounter: 20:01 I examined this patient and my medical decision-making was reviewed with the INSPECTOR AND CLERK/PA/Advanced Practice Nurse/Resident Physician. I agree with the documented findings, disposition and treatment plan as described except to the extent set forth below. Patient with known history of acute intermittent hepatic porphyria presented with abdominal pain resembling her porphyria crisis. Currently reports aching epigastric abdominal pain, improves with IV Dilaudid. Associated with nausea. On exam she is in no acute distress awake alert oriented 3. Heart is regular, lungs are clear. Abdomen is soft, tender to palpation diffusely with voluntary guarding no rebound tenderness. Plan: Continue supportive care with IV Dilaudid, IV fluids, Zofran for Phenergan for nausea. Consider hematology consult. She is at high risk for morbidity mortality and complications due to treatment with IV controlled substances for pain.
--- NOTE | 2016-08-25 20:43 | Internal Med History&Physical ---
<JaimeCordelia M - Last Filed: 08/25/16 23:03> Date of Encounter: 08/25/16 Time of Encounter: 20:40 Assessment and Plan (1) Abdominal pain Current visit: Yes Status: Acute Patient with severe abdominal pain related to her acute prophyria. 1mg Dilaudid IVP Q4hr PRN [place] 10-325 Q6hr PRN once tolerating PO Narcan PRN for respiratory depression. Qualifiers: Abdominal location: generalized Qualified Code(s): R10.84 - Generalized abdominal pain (2) Intractable nausea and vomiting Current visit: Yes Status: Acute Patient with nausea and vomiting related to acute episode of prophyria. She is unable to tolerate PO. She reports vomitting yellow bile. Zofran IVP PRN for nausea and vomiting. Phenergan IVP for nausea not controlled by zofran. Qualifiers: Vomiting type: unspecified Qualified Code(s): R11.2 - Nausea with vomiting , unspecified (3) Acute intermittent porphyria Current visit: Yes Status: Acute Patient with diagnosis of acute intermittent porphyria. She follows with a specialist at the [facility]. She reports being diagnosed at age 13, and having episoded of abdominal pain, nausea and vomiting ever since. Treating with Dextrose 10% in 0.2 NaCL at 100mL/hr. Zofran and phenergan for nausea, dilaudid for abdominal pain. Protonix IVP BID for heartburn related to recent frequent vomiting. Recheck labs in the morning. (4) DVT prophylaxis Current visit: No Status: Acute anti-embolic stockings lovenox 40mg SQ daily Internal Medicine - H&P: HPI Chief complaint: abdominal pain, nausea and vomiting Admitted From: Hospital to Hospital Transfer Plans for Post Hospital Care: Home History of present illness: Ms. Morris is a 41 year old female with hypertension, asthma, and history of acute intermittent hepatic porphyria presented to the emergency department today with abdominal pain, nausea and vomiting. Patient reports that her symptoms started on Monday, got better on Monday and Monday and returned Monday night patient reports her abdominal pain is severe, cramping, worse with vomiting, improved with pain medication given in the emergency department. She is vomiting yellow bile, and has not been able to keep anything down. She reports this is similar to previous episodes of her acute episodes of porphyria. She reports she is having regular bowel movements, denies any headache, lightheadedness, chest pain, palpitations, shortness of breath, chills , fever. Evaluation in the emergency department revealed elevated AST and ALT. White blood cell count was normal at 6.6. Lactate was normal at 1.3. On exam , patient alert and oriented, in no acute distress. Heart has regular rate and rhythm, lungs clear bilaterally to auscultation. Abdomen is soft, tender to palpation diffusely. Patient is guarding, no rebound tenderness. Past Med Surg Social Fam HX - Past Medical History Medical history: asthma, hypertension, other (acute intermittent hepatic prophyria) Psychiatric history: no psych history - Past Surgical History Surgical History: appendectomy, , cholecystectomy - Social History Smoking Status: Never smoker Smokeless Tobacco Status: No Alcohol use: none Drug use: none - Family History Father Adopted: No Living Status: Still Living Hx Family Cardiac Disorders: Yes (hld) Hx Family Respiratory Disorders: No Hx Family Cancer: No Hx Family GI Disorders: Yes (Ulcers) Hx Family Endocrine Disorder: Yes (kidney stones) Hx Family Neuromuscular Disorders: No Hx Family Neurologic Disorders: No Hx Family HEENT Disorders: No Hx Family Autoimmune Disorders: No Sister Living Status: Still Living Hx Family Cardiac Disorders: Yes (htn) Mother Adopted: No Family Member Ethnicity: Non- Living Status: Still Living Hx Family Cardiac Disorders: Yes (htn) Hx Family Respiratory Disorders: Yes (copd) Hx Family Cancer: No Hx Family GI Disorders: Yes (ulcers) Hx Family Endocrine Disorder: Yes (DM) Hx Family Neuromuscular Disorders: No Hx Family Neurologic Disorders: No Hx Family HEENT Disorders: No Hx Family Autoimmune Disorders: No Internal Medicine - H&P: Meds Amlodipine Besylate [Norvasc] 5 mg PO BID 10/14/14 [History] OxyCODONE/APAP 10/325 [Percocet 10/325] 1 tab PO Q6H PRN 10/14/14 [History] Pantoprazole Sodium [Protonix] 40 mg PO BID #60 10/18/14 [Rx] Promethazine [Phenergan] 25 mg PO Q6HR PRN 11/05/14 [History] SUMAtriptan succinate [Imitrex] 100 mg PO AD PRN 05/26/15 [History] Albuterol Sulfate [Ventolin Hfa] 1 - 2 puff IH Q6H PRN 06/12/16 [History] Budesonide/Formoterol 160/4.5 [Symbicort 160/4.5] 2 puff IH BID 06/12/16 [ History] Metoprolol XL (24 HR) Succ [Toprol Xl] 25 mg PO DAILY 06/12/16 [History] Allergies aspirin [ASA] Allergy (Verified 07/18/16 14:08) See Comments Barbiturates Allergy (Verified 07/18/16 14:08) Hives diphenhydramine [From Benadryl] Allergy (Verified 07/18/16 14:08) Abdominal Pain ketorolac [From Toradol] Allergy (Verified 07/18/16 14:08) See Comments blood disorder NSAIDS (Non-Steroidal Anti-Inflamma Allergy (Verified 07/18/16 14:08) See Comments blood disorder Penicillins Allergy (Verified 07/18/16 14:08) Swelling of Lip/Tongue/Throat Sulfa (Sulfonamide Antibiotics) Allergy (Verified 07/18/16 14:08) Hives morphine Adverse Reaction (Verified 07/18/16 14:08) Abdominal Pain Steroids Adverse Reaction (Uncoded 06/12/16 18:14) Abdominal Pain All Systems PM: A 10-system review of systems was performed and is negative for pertinent findings except as documented above in the HPI. - Constitutional Constitutional: no chills, no fever(s), no night sweats - EENT Eyes: no change in vision, no discharge, no pain, no photophobia Ears: no ear discharge, no ear pain, no tinnitus Nose, mouth and throat: no dysphagia, no nasal discharge, no neck pain, no sore throat - Cardiovascular Cardiovascular ROS IM: no chest pain, no diaphoresis, no dyspnea, no lightheadedness, no palpitations, no syncope - Respiratory Respiratory: no cough, no dyspnea, no wheezing, no excessive phlegm production - Gastrointestinal Gastrointestinal: abdominal pain, heartburn, nausea, vomiting, no diarrhea, no hematemesis, no hematochezia, no melena - Genitourinary Genitourinary: no change in urinary stream, no dysuria, no flank pain, no hematuria - Musculoskeletal Musculoskeletal ROS IM: no numbness, no tingling - Integumentary Integumentary IM: no rash, no unusual bruising - Neurological Neurological ROS: no confusion, no convulsions, no focal weakness, no numbness, no tingling, no tremor(s) - Hematologic/Lymphatic Hematologic/Lymphatic: no easy bruising - Constitutional Vitals: Temp Pulse Resp BP Pulse Ox 98.4 F 91 17 147/84 94 08/25/16 19:27 08/25/16 19:27 08/25/16 19:27 08/25/16 19:27 08/25/16 19:27 General appearance: Present: A&O X 3, morbidly obese, pleasant, no acute distress - Head Head exam: Present: atraumatic, normocephalic - Eye Eye exam: Present: PERRL, conjuntiva pink, sclera anicteric Pupils: Present: PERRL - Neck Neck exam general surgery: Present: supple, trachea midline. Absent: lymphadenopathy - Respiratory Respiratory exam: Present: CTAB. Absent: accessory muscle use, rales, rhonchi, wheezes - Cardiovascular Cardiovascular exam: Present: RRR, +S1, +S2. Absent: diastolic murmur, gallop, rubs, systolic murmur - GI/Abdominal GI/Abdominal exam: Present: guarding, normal bowel sounds, soft, tenderness ( diffuse), no peritoneal signs. Absent: distended - Extremities Exam Extremities exam: Present: warm, radial pulses palpable and symetrical. Absent : calf tenderness, cyanotic, pedal edema - Neurological Exam Neurological exam: Present: CN II-XII intact, oriented X3, no focal deficits. Absent: facial droop, speech deficit - Skin Skin exam: Present: dry, intact Internal Med - H&P Results - Labs CBC & Chem 7: 08/25/16 13:14 08/25/16 13:14 Labs: All Lab Results (24 Hours) 08/25/16 08/25/16 08/25/16 Range/Units 13:14 13:14 13:14 WBC 6.6 (4.3-11.1) K/mcL RBC 4.40 (3.82-4.97) M/mcL Hgb 13.4 (11.5-15.4) g/dL Hct 40.0 (35.3-44.9) % MCV 90.9 (83.0-100.0) fL MCH 30.5 (28.0-33.3) pg MCHC 33.5 (31.6-35.5) g/dL RDW 14.1 (11.5-14.5) % Plt Count 250 (140-400) K/mcL MPV 9.4 (9.4-12.4) fL Immature Gran % 0.3 (0-4) % Seg Neutrophils % 76.0 % Lymphocytes % 16.3 % Monocytes % 5.9 % Eosinophils % 1.2 % Basophils % 0.3 % Neutrophils # 5.0 (1.6-8.9) K/mcL Lymphocytes # 1.1 (0.6-4.6) K/mcL Monocytes # 0.4 (0.0-1.3) K/mcL Eosinophils # 0.1 (0.0-0.6) K/mcL Basophils # 0.0 (0.0-0.2) K/mcL Sodium 139 (136-145) mEq/L Potassium 4.3 (3.5-4.5) mEq/L Chloride 107 (98-109) mEq/L Carbon Dioxide 23 (19-29) mEq/L BUN 14 (7-20) mg/dL Creatinine 0.75 (0.57-1.11) mg/dL Est GFR ( Amer) > 60 (> 60) Est GFR (Non-Af Amer) > 60 (> 60) BUN/Creatinine Ratio 19 (6-26) Glucose 111 H (70-99) mg/dL Calculated Osmolality 289 (280-300) Lactic Acid 1.3 (0.5-2.2) mmol/L Calcium 9.9 (8.6-10.8) mg/dL Total Bilirubin 0.6 (0.2-1.2) mg/dL Direct Bilirubin 0.2 (0.0-0.5) mg/dL Indirect Bilirubin 0.4 (0.0-1.2) mg/dL AST 74 H (5-34) Units/L ALT 148 H (0-55) Units/L Alkaline Phosphatase 118 (38-126) Units/L Serum Total Protein 7.8 (6.0-8.3) g/dL Albumin 3.9 (3.5-5.0) g/dL Globulin 3.9 H (2.4-3.5) g/dL Albumin/Globulin Ratio 1.0 L (1.1-2.2) Amylase 27 (25-125) Units/L Lipase 7 L (8-78) Units/L Urine Color (Yellow) Urine Clarity (Clear) Urine pH (5.0-8.0) pH Units Ur Specific [place] (1.010-1.025) Urine Protein (Neg-Trace) mg/dL Urine Glucose (UA) (Normal) mg/dL Urine Ketones (Negative) mg/dL Urine Blood (Negative) Urine Nitrite (Negative) Urine Bilirubin (Negative) Urine Urobilinogen (Normal) mg/dL Ur Leukocyte Esterase (Negative) Urine Microscopic RBC (0-3) per hpf Urine Microscopic WBC (0-3) per hpf Ur Squamous Epith Cells (None-Few) per lpf Urine Bacteria (None-Few) per hpf Hyaline Casts (None-Few) per lpf Ur Culture Indicated? (NO) Urine Test (Negative) Urine Opiates Screen (Ngtplu=114) ng/mL Ur Barbiturates Screen (Qirrez=370) ng/mL Ur Phencyclidine Scrn (Cutoff=25) ng/mL Ur Amphetamines Screen (Wvtlih=5063) ng/mL U Benzodiazepines Scrn (Oafuqy=683) ng/mL Urine Cocaine Screen (Cutoff= 300) ng/mL U Marijuana (THC) Screen (Cutoff = 50) ng/mL 08/25/16 08/25/16 08/25/16 Range/Units 16:35 16:35 16:46 WBC (4.3-11.1) K/mcL RBC (3.82-4.97) M/mcL Hgb (11.5-15.4) g/dL Hct (35.3-44.9) % MCV (83.0-100.0) fL MCH (28.0-33.3) pg MCHC (31.6-35.5) g/dL RDW (11.5-14.5) % Plt Count (140-400) K/mcL MPV (9.4-12.4) fL Immature Gran % (0-4) % Seg Neutrophils % % Lymphocytes % % Monocytes % % Eosinophils % % Basophils % % Neutrophils # (1.6-8.9) K/mcL Lymphocytes # (0.6-4.6) K/mcL Monocytes # (0.0-1.3) K/mcL Eosinophils # (0.0-0.6) K/mcL Basophils # (0.0-0.2) K/mcL Sodium (136-145) mEq/L Potassium (3.5-4.5) mEq/L Chloride (98-109) mEq/L Carbon Dioxide (19-29) mEq/L BUN (7-20) mg/dL Creatinine (0.57-1.11) mg/dL Est GFR ( Amer) (> 60) Est GFR (Non-Af Amer) (> 60) BUN/Creatinine Ratio (6-26) Glucose (70-99) mg/dL Calculated Osmolality (280-300) Lactic Acid (0.5-2.2) mmol/L Calcium (8.6-10.8) mg/dL Total Bilirubin (0.2-1.2) mg/dL Direct Bilirubin (0.0-0.5) mg/dL Indirect Bilirubin (0.0-1.2) mg/dL AST (5-34) Units/L ALT (0-55) Units/L Alkaline Phosphatase (38-126) Units/L Serum Total Protein (6.0-8.3) g/dL Albumin (3.5-5.0) g/dL Globulin (2.4-3.5) g/dL Albumin/Globulin Ratio (1.1-2.2) Amylase (25-125) Units/L Lipase (8-78) Units/L Urine Color Yellow (Yellow) Urine Clarity Cloudy A (Clear) Urine pH 5.5 (5.0-8.0) pH Units Ur Specific [place] 1.016 (1.010-1.025) Urine Protein Negative (Neg-Trace) mg/dL Urine Glucose (UA) Normal (Normal) mg/dL Urine Ketones Negative (Negative) mg/dL Urine Blood Negative (Negative) Urine Nitrite Negative (Negative) Urine Bilirubin Negative (Negative) Urine Urobilinogen Normal (Normal) mg/dL Ur Leukocyte Esterase Moderate H (Negative) Urine Microscopic RBC 5-15 H (0-3) per hpf Urine Microscopic WBC 15-30 H (0-3) per hpf Ur Squamous Epith Cells Many H (None-Few) per lpf Urine Bacteria None Seen (None-Few) per hpf Hyaline Casts None Seen (None-Few) per lpf Ur Culture Indicated? YES A (NO) Urine Test Negative (Negative) Urine Opiates Screen Positive H (Dubpgl=355) ng/mL Ur Barbiturates Screen Negative (Dbmkdg=198) ng/mL Ur Phencyclidine Scrn Negative (Cutoff=25) ng/mL Ur Amphetamines Screen Negative (Jpqjug=3950) ng/mL U Benzodiazepines Scrn Negative (Qjtgbd=581) ng/mL Urine Cocaine Screen Negative (Cutoff= 300) ng/mL U Marijuana (THC) Screen Negative (Cutoff = 50) ng/mL <Jong Muro - Last Filed: 08/27/16 07:54> Date of Encounter: 08/27/16 Internal Medicine - H&P: HPI History of present illness: Ms. Morris is a 41 year old female All Systems PM: A 10-system review of systems was performed and is negative for pertinent findings except as documented above in the HPI. - Constitutional Vitals: Temp Pulse Resp BP Pulse Ox 98.3 F 76 18 129/78 95 08/27/16 06:44 08/27/16 06:44 08/27/16 06:44 08/27/16 06:44 08/27/16 06:44 Internal Med - H&P Results - Labs CBC & Chem 7: 08/26/16 07:43 08/27/16 04:28 Labs: BMP 08/27/16 04:28 Sodium 138 Potassium 3.8 Chloride 105 Carbon Dioxide 26 BUN 9 Creatinine 0.72 Glucose 114 H Calcium 9.0 - Attending Attestation I examined this patient and my medical decision-making was reviewed with the PIG CASTER/PA/Advanced Practice Nurse/Resident Physician. I agree with the documented findings, disposition and treatment plan as described except to the extent set forth below. Please see event note
[2016-08-25] MEDS: amLODIPine 5 MG TABLET PO SCH (22:03)
[2016-08-25] MEDS: Pantoprazole 40 MG VIAL IVP SCH (22:03)
[2016-08-25] MEDS: *HR* Promethazine 25 MG/ML VIAL IVP PRN (22:48)
[2016-08-26] MEDS: D10% in 0.2 % NACL 250 ML IVC SCH ×9 (02:31→23:59)
[2016-08-26] MEDS: *HR* HYDROmorphone (PF) 1 MG/ML SYRINGE IVP PRN ×6 (03:00→23:54)
[2016-08-26] MEDS: Ondansetron 4 MG/2 ML VIAL IVP PRN ×3 (03:00→19:56)
[2016-08-26] MEDS: Pantoprazole 40 MG VIAL IVP SCH ×2 (05:09→17:05)
[2016-08-26] MEDS: *HR* Enoxaparin 40 MG/0.4 ML SYRINGE SQ SCH (06:19)
[2016-08-26] MEDS: amLODIPine 5 MG TABLET PO SCH ×2 (07:26→19:56)
[2016-08-26] MEDS: *HR* Promethazine 25 MG/ML VIAL IVP PRN ×3 (07:26→23:54)
[2016-08-26] MEDS: Metoprolol XL (24 HR) Succ 25 MG TAB.ER.24H PO SCH (07:26)
[2016-08-26] MEDS: Budesonide/Formoterol 160/4.5 MDI IH SCH ×2 (07:41→20:06)
[2016-08-26] MEDS ORDERED: SUMAtriptan succinate 50 MG TABLET PO ONE (08:22)
[2016-08-26 08:34] LABS: Basophils % 0.3 %; Eosinophils # 0.1 K/mcL (0.0-0.6); Eosinophils % 1.5 %; Hematocrit 40.5 % (35.3-44.9); Hemoglobin 12.8 g/dL (11.5-15.4); Immature Granulocytes % 0.3 % (0-4); Lymphocytes # 1.2 K/mcL (0.6-4.6); Mean Corpuscular HGB Conc 31.6 g/dL (31.6-35.5); Mean Corpuscular Hemoglobin 29.3 pg (28.0-33.3); Mean Corpuscular Volume 92.7 fL (83.0-100.0); Mean Platelet Volume 9.5 fL (9.4-12.4); Monocytes # 0.5 K/mcL (0.0-1.3); Monocytes % 7.7 %; Neutrophils # 4.3 K/mcL (1.6-8.9); Platelet Count 226 K/mcL (140-400); Red Blood Count 4.37 M/mcL (3.82-4.97); Red Cell Distribution Width 14.1 % (11.5-14.5); Segmented Neutrophils % 71.2 %
[2016-08-26 08:46] LABS: BUN/Creatinine Ratio 20 (6-26); Blood Urea Nitrogen 14 mg/dL (7-20); Calcium 9.2 mg/dL (8.6-10.8); Carbon Dioxide 26 mEq/L (19-29); Chloride 104 mEq/L (98-109); Glucose 102 mg/dL (70-99); Osmolality,Calculated 287 (280-300); Potassium 3.8 mEq/L (3.5-4.5); Sodium 138 mEq/L (136-145); eGFR For African Americans > 60 (> 60); eGFR For Non-African Americans > 60 (> 60)
[2016-08-26] MEDS ORDERED: SUMAtriptan 6 MG/0.5 ML SQ ONE (11:57)
--- NOTE | 2016-08-26 13:19 | Internal Med Progress Note ---
<Mele Beard - Last Filed: 08/26/16 13:16> Date of Encounter: 08/26/16 Time of Encounter: 09:10 - Assessment and plan (1) Acute intermittent porphyria Current Visit: Yes Status: Acute Assessment and plan: Patient has had acute intermittent porphyria since a young age, she has had multiple episodes of acute attacks over the course of her life. Current symptoms are similar to prior episodes. We will provide supportive care and monitor patient until resolution is achieved. Continue pain medication with Percocet 10/325 every 6 hours when necessary or colonic 1 mg every 4 hours when necessary Nausea control 4 mg every 6 hours when necessary 4 Phenergan 12.5 mg every 6 hours when necessary Continue IV fluids until patient able to tolerate by mouth (2) Migraines Current Visit: Yes Status: Acute Assessment and plan: Patient has history of migraines and takes sumatriptan at home. Given patient inability to tolerate by mouth currently, will provide sumatriptan subcutaneous Sumatriptan 6 mg subcutaneous if needed (12 mg max dose daily) Qualifiers: Migraine type: without aura Status migrainosus presence: without status migrainosus Intractability: not intractable Qualified Code(s): G43.009 - Migraine without aura, not intractable, without status migrainosus (3) Asthma Current Visit: Yes Status: Acute Assessment and plan: Patient has history of asthma and has albuterol inhaler and Symbicort at home. No apparent sign of exacerbation, or wheezes heard on exam. Continue albuterol sulfate inhaler 1 puff every 6 hours when necessary Continue Symbicort 160/4.52 puffs twice a day Qualifiers: Asthma severity: unspecified severity Asthma complication type: uncomplicated Qualified Code(s): J45.909 - Unspecified asthma, uncomplicated (4) Hypertension Current Visit: No Status: Chronic Assessment and plan: Continue home medication of metoprolol succinate 25 mg daily and amlodipine 5 mg twice a day Qualifiers: Hypertension type: essential hypertension Qualified Code(s): I10 - Essential (primary) hypertension (5) DVT prophylaxis Current Visit: No Status: Acute Assessment and plan: 40 mg Lovenox daily - Subjective Interval history: Patient reports she is still having migraines, lack of appetite, nausea/ vomiting (especially with eating), and sharp stomach pain. She states these are all for monitor her and feels like when she has her usual bouts of acute intermittent porphyria. - Constitutional Vitals: Temp Pulse Resp BP Pulse Ox 98.1 F 75 18 127/80 98 08/26/16 11:43 08/26/16 11:43 08/26/16 11:43 08/26/16 11:43 08/26/16 11:43 General appearance: Present: A&O X 3, morbidly obese, pleasant, no acute distress Exam: General: Cooperative, pleasant, no acute distress, alert and oriented 3, answers questions appropriately HEENT: Normocephalic, atraumatic, neck supple, trachea midline, Conjunctiva pink , sclera anicteric, oral mucosa moist Respiratory: No accessory muscle usage, clear to auscultation bilaterally, no wheezes/rhonchi/rales appreciated Cardiovascular: Regular rate and rhythm, S1 and S2 present, no murmurs/rubs/ gallops/clicks appreciated GI/abdominal: Nondistended, tenderness to palpation in the epigastric region, soft, normal bowel sounds, no peritoneal signs Extremities: No calf tenderness, noncyanotic, no pedal edema appreciated, warm, lower extremity pulses palpable and symmetrical Neurological: Alert and oriented 3, no facial droop, no focal deficits Skin: Dry, intact, normal color Internal Medicine: Result - Labs CBC & Chem 7: 08/26/16 07:43 08/26/16 07:43 Labs: Short CBC 08/26/16 Range/Units 07:43 WBC 6.1 (4.3-11.1) K/mcL Hgb 12.8 (11.5-15.4) g/dL Hct 40.5 (35.3-44.9) % Plt Count 226 (140-400) K/mcL Neutrophils # 4.3 (1.6-8.9) K/mcL BMP 08/26/16 07:43 Sodium 138 Potassium 3.8 Chloride 104 Carbon Dioxide 26 BUN 14 Creatinine 0.70 Glucose 102 H Calcium 9.2 Urine 08/25/16 Range/Units 16:46 Urine Color Yellow (Yellow) Urine Clarity Cloudy A (Clear) Urine pH 5.5 (5.0-8.0) pH Units Ur Specific Roberts 1.016 (1.010-1.025) Urine Protein Negative (Neg-Trace) mg/dL Urine Glucose (UA) Normal (Normal) mg/dL Consult Discharge Plan - Plan Referrals: Jasiel Cox DO [Primary Care Provider] - <Deepa Stiles - Last Filed: 08/26/16 16:06> Date of Encounter: 08/26/16 - Constitutional Vitals: Temp Pulse Resp BP Pulse Ox 98.1 F 75 18 127/80 98 08/26/16 11:43 08/26/16 11:43 08/26/16 11:43 08/26/16 11:43 08/26/16 11:43 Internal Medicine: Result - Labs CBC & Chem 7: 08/26/16 07:43 08/26/16 07:43 Labs: Short CBC 08/26/16 Range/Units 07:43 WBC 6.1 (4.3-11.1) K/mcL Hgb 12.8 (11.5-15.4) g/dL Hct 40.5 (35.3-44.9) % Plt Count 226 (140-400) K/mcL Neutrophils # 4.3 (1.6-8.9) K/mcL BMP 08/26/16 07:43 Sodium 138 Potassium 3.8 Chloride 104 Carbon Dioxide 26 BUN 14 Creatinine 0.70 Glucose 102 H Calcium 9.2 Urine 08/25/16 Range/Units 16:46 Urine Color Yellow (Yellow) Urine Clarity Cloudy A (Clear) Urine pH 5.5 (5.0-8.0) pH Units Ur Specific Roberts 1.016 (1.010-1.025) Urine Protein Negative (Neg-Trace) mg/dL Urine Glucose (UA) Normal (Normal) mg/dL - Attending Attestation I examined this patient and reviewed laboratory, imaging and all diagnostic data. My medical decision-making was reviewed with Dr Mele Beard - Resident Physician. I agree with the documented findings, disposition and treatment plan as described above with the following additions.
[2016-08-27] MEDS: D10% in 0.2 % NACL 250 ML IVC SCH ×3 (02:37→08:14)
[2016-08-27] MEDS: Ondansetron 4 MG/2 ML VIAL IVP PRN ×3 (04:05→18:31)
[2016-08-27] MEDS: *HR* HYDROmorphone (PF) 1 MG/ML SYRINGE IVP PRN ×6 (04:05→21:39)
[2016-08-27 05:28] LABS: BUN/Creatinine Ratio 13 (6-26); Blood Urea Nitrogen 9 mg/dL (7-20); Carbon Dioxide 26 mEq/L (19-29); Chloride 105 mEq/L (98-109); Glucose 114 mg/dL (70-99); Osmolality,Calculated 286 (280-300); Potassium 3.8 mEq/L (3.5-4.5); Sodium 138 mEq/L (136-145); eGFR For African Americans > 60 (> 60); eGFR For Non-African Americans > 60 (> 60)
[2016-08-27] MEDS: *HR* Enoxaparin 40 MG/0.4 ML SYRINGE SQ SCH (06:10)
[2016-08-27] MEDS: Pantoprazole 40 MG VIAL IVP SCH ×2 (06:10→18:31)
[2016-08-27] MEDS: Metoprolol XL (24 HR) Succ 25 MG TAB.ER.24H PO SCH (08:05)
[2016-08-27] MEDS: amLODIPine 5 MG TABLET PO SCH ×2 (08:05→20:32)
[2016-08-27] MEDS: *HR* Promethazine 25 MG/ML VIAL IVP PRN ×3 (08:15→21:37)
[2016-08-27] MEDS: Budesonide/Formoterol 160/4.5 MDI IH SCH ×2 (09:34→19:38)
[2016-08-27] MEDS: WATER IVC SCH ×2 (10:49→21:40)
[2016-08-27] MEDS: D5 IVC SCH ×2 (10:49→21:40)
[2016-08-27] MEDS: NACL IVC SCH ×2 (10:49→21:40)
[2016-08-27] MEDS: DEXTROSE IVC SCH ×2 (10:49→21:40)
--- NOTE | 2016-08-27 21:47 | Internal Med Progress Note ---
Date of Encounter: 08/27/16 Time of Encounter: 12:45 - Assessment and plan (1) Intractable nausea and vomiting Current Visit: Yes Status: Acute Assessment and plan: secondary to AIP. plan as below Qualifiers: Vomiting type: unspecified Qualified Code(s): R11.2 - Nausea with vomiting , unspecified (2) Acute intermittent porphyria Current Visit: Yes Status: Acute Assessment and plan: Patient has had acute intermittent porphyria since 7 years old, she has had multiple episodes of acute attacks over the course of her life. Current symptoms are similar to prior episodes. We will provide supportive care and monitor patient until resolution is achieved. still requiring IV dilaudid. Increase dilaudid to every 3hours. Continue pain medication with Percocet 10/325 every 6 hours when necessary. Nausea control 4 mg every 6 hours when necessary 4 Phenergan 12.5 mg every 6 hours when necessary Continue IV fluids until patient able to tolerate by mouth (3) Asthma Current Visit: Yes Status: Acute Assessment and plan: Not in exacerbation. Patient has history of asthma and has albuterol inhaler and Symbicort at home. Continue albuterol sulfate inhaler 1 puff every 6 hours when necessary Continue Symbicort 160/4.52 puffs twice a day Qualifiers: Asthma severity: unspecified severity Asthma complication type: uncomplicated Qualified Code(s): J45.909 - Unspecified asthma, uncomplicated (4) Hypertension Current Visit: No Status: Chronic Assessment and plan: Continue home medication of metoprolol succinate 25 mg daily and amlodipine 5 mg twice a day Qualifiers: Hypertension type: essential hypertension Qualified Code(s): I10 - Essential (primary) hypertension - Subjective Interval history: patient reports persistent abdominal pain that is mildly relieved by IV dilaudid , she would prefer medication be given every 3 hours. - Constitutional Vitals: Temp Pulse Resp BP Pulse Ox 98.8 F 69 14 136/67 92 08/27/16 19:18 08/27/16 19:18 08/27/16 19:38 08/27/16 19:18 08/27/16 19:38 General appearance: Present: cooperative, mild distress (mild abdominal pain), A &O X 3, morbidly obese, pleasant, answers questions appropriately - Eye Eye exam: Present: PERRL, sclera anicteric - Neck Neck exam general surgery: Present: supple, trachea midline. Absent: lymphadenopathy - Respiratory Respiratory exam: Present: CTAB - Cardiovascular Cardiovascular exam: Present: RRR - GI/Abdominal GI/Abdominal exam: Present: normal bowel sounds, soft. Absent: distended, tenderness - Extremities Exam Extremities exam: Absent: pedal edema - Back Exam Back exam: Absent: CVA tenderness (L), CVA tenderness (R) - Neurological Exam Neurological exam: Present: alert, oriented X3, no focal deficits, strengths equal and symetr throughout. Absent: facial droop, speech deficit Internal Medicine: Result - Labs CBC & Chem 7: 08/26/16 07:43 08/27/16 04:28 Labs: BMP 08/27/16 04:28 Sodium 138 Potassium 3.8 Chloride 105 Carbon Dioxide 26 BUN 9 Creatinine 0.72 Glucose 114 H Calcium 9.0 - VTE Documentation of Mechanical Device: Graduated compression elastic hosiery Consult Discharge Plan - Plan Referrals: Jasiel Cox DO [Primary Care Provider] -
[2016-08-28] MEDS: Ondansetron 4 MG/2 ML VIAL IVP PRN ×4 (00:44→20:31)
[2016-08-28] MEDS: *HR* HYDROmorphone (PF) 1 MG/ML SYRINGE IVP PRN ×8 (00:45→23:52)
[2016-08-28] MEDS: *HR* Promethazine 25 MG/ML VIAL IVP PRN ×4 (03:57→23:51)
[2016-08-28 04:53] LABS: Basophils % 0.2 %; Eosinophils # 0.1 K/mcL (0.0-0.6); Eosinophils % 1.4 %; Hematocrit 38.1 % (35.3-44.9); Hemoglobin 12.5 g/dL (11.5-15.4); Immature Granulocytes % 0.2 % (0-4); Lymphocytes # 1.7 K/mcL (0.6-4.6); Lymphocytes % 25.6 %; Mean Corpuscular HGB Conc 32.8 g/dL (31.6-35.5); Mean Corpuscular Hemoglobin 29.9 pg (28.0-33.3); Mean Corpuscular Volume 91.1 fL (83.0-100.0); Mean Platelet Volume 9.6 fL (9.4-12.4); Monocytes # 0.5 K/mcL (0.0-1.3); Monocytes % 7.9 %; Neutrophils # 4.3 K/mcL (1.6-8.9); Platelet Count 227 K/mcL (140-400); Red Blood Count 4.18 M/mcL (3.82-4.97); Red Cell Distribution Width 13.7 % (11.5-14.5); Segmented Neutrophils % 64.7 %
[2016-08-28 05:04] LABS: BUN/Creatinine Ratio 12 (6-26); Blood Urea Nitrogen 9 mg/dL (7-20); Calcium 9.2 mg/dL (8.6-10.8); Carbon Dioxide 24 mEq/L (19-29); Chloride 103 mEq/L (98-109); Glucose 109 mg/dL (70-99); Magnesium 1.8 mg/dL (1.6-2.6); Osmolality,Calculated 281 (280-300); Potassium 3.8 mEq/L (3.5-4.5); Sodium 136 mEq/L (136-145); eGFR For African Americans > 60 (> 60); eGFR For Non-African Americans > 60 (> 60)
[2016-08-28] MEDS: *HR* Enoxaparin 40 MG/0.4 ML SYRINGE SQ SCH (05:59)
[2016-08-28] MEDS: Pantoprazole 40 MG VIAL IVP SCH ×2 (05:59→17:54)
[2016-08-28] MEDS: Budesonide/Formoterol 160/4.5 MDI IH SCH ×2 (07:55→21:45)
[2016-08-28] MEDS: amLODIPine 5 MG TABLET PO SCH (08:09)
[2016-08-28] MEDS: Metoprolol XL (24 HR) Succ 25 MG TAB.ER.24H PO SCH (08:09)
[2016-08-28] MEDS: D5 IVC SCH ×2 (10:02→20:41)
[2016-08-28] MEDS: DEXTROSE IVC SCH ×2 (10:02→20:41)
[2016-08-28] MEDS: NACL IVC SCH ×2 (10:02→20:41)
[2016-08-28] MEDS: WATER IVC SCH ×2 (10:02→20:41)
--- NOTE | 2016-08-28 12:00 | Internal Med Progress Note ---
Date of Encounter: 08/28/16 Time of Encounter: 11:00 - Assessment and plan (1) Intractable nausea and vomiting Current Visit: Yes Status: Acute Assessment and plan: secondary to AIP. plan as below Qualifiers: Vomiting type: unspecified Qualified Code(s): R11.2 - Nausea with vomiting , unspecified (2) Acute intermittent porphyria Current Visit: Yes Status: Acute Assessment and plan: Patient has had acute intermittent porphyria since 7 years old, she has had multiple episodes of acute attacks over the course of her life. Current symptoms are similar to prior episodes. she reports triggers are usually an infection. she had sinusitis last week We will provide supportive care and monitor patient until resolution is achieved. slowly improving. still requiring IV dilaudid. Continue pain medications with Dilaudid and Percocet 10/325 every 6 hours when necessary. Nausea control 4 mg every 6 hours when necessary 4 Phenergan 12.5 mg every 6 hours when necessary Continue IV fluids until patient able to tolerate by mouth (3) Asthma Current Visit: Yes Status: Acute Assessment and plan: Not in exacerbation. Patient has history of asthma and has albuterol inhaler and Symbicort at home. Continue albuterol sulfate inhaler 1 puff every 6 hours when necessary Continue Symbicort 160/4.52 puffs twice a day Qualifiers: Asthma severity: unspecified severity Asthma complication type: uncomplicated Qualified Code(s): J45.909 - Unspecified asthma, uncomplicated (4) Hypertension Current Visit: No Status: Chronic Assessment and plan: Continue home medication of metoprolol succinate 25 mg daily and amlodipine 5 mg twice a day Qualifiers: Hypertension type: essential hypertension Qualified Code(s): I10 - Essential (primary) hypertension - Subjective Interval history: patient reports abdominal pain has improved slightly, no vomiting this morning so far - Constitutional Vitals: Temp Pulse Resp BP Pulse Ox 98.5 F 89 16 126/84 93 08/28/16 10:11 08/28/16 10:11 08/28/16 10:11 08/28/16 10:11 08/28/16 10:11 General appearance: Present: cooperative, A&O X 3, morbidly obese, pleasant, no acute distress, answers questions appropriately - Neck Neck exam general surgery: Present: supple, trachea midline. Absent: lymphadenopathy - Respiratory Respiratory exam: Present: CTAB - Cardiovascular Cardiovascular exam: Present: RRR - GI/Abdominal GI/Abdominal exam: Present: normal bowel sounds, soft, tenderness (mild diffuse tenderness). Absent: distended - Extremities Exam Extremities exam: Absent: pedal edema - Back Exam Back exam: Absent: CVA tenderness (L), CVA tenderness (R) - Neurological Exam Neurological exam: Present: alert, oriented X3, no focal deficits, strengths equal and symetr throughout. Absent: facial droop, speech deficit Internal Medicine: Result - Labs CBC & Chem 7: 08/28/16 04:33 08/28/16 04:33 Labs: Short CBC 08/28/16 Range/Units 04:33 WBC 6.6 (4.3-11.1) K/mcL Hgb 12.5 (11.5-15.4) g/dL Hct 38.1 (35.3-44.9) % Plt Count 227 (140-400) K/mcL Neutrophils # 4.3 (1.6-8.9) K/mcL BMP 08/28/16 04:33 Sodium 136 Potassium 3.8 Chloride 103 Carbon Dioxide 24 BUN 9 Creatinine 0.73 Glucose 109 H Calcium 9.2 - VTE Documentation of Mechanical Device: Graduated compression elastic hosiery Consult Discharge Plan - Plan Referrals: Jasiel Cox DO [Primary Care Provider] -
[2016-08-29] MEDS: Ondansetron 4 MG/2 ML VIAL IVP PRN ×4 (03:06→23:50)
[2016-08-29] MEDS: *HR* HYDROmorphone (PF) 1 MG/ML SYRINGE IVP PRN ×7 (03:07→23:50)
[2016-08-29 04:10] LABS: Basophils % 0.4 %; Eosinophils # 0.1 K/mcL (0.0-0.6); Eosinophils % 1.3 %; Hematocrit 37.3 % (35.3-44.9); Hemoglobin 11.9 g/dL (11.5-15.4); Immature Granulocytes % 0.2 % (0-4); Lymphocytes # 1.5 K/mcL (0.6-4.6); Lymphocytes % 28.4 %; Mean Corpuscular HGB Conc 31.9 g/dL (31.6-35.5); Mean Corpuscular Hemoglobin 29.2 pg (28.0-33.3); Mean Corpuscular Volume 91.4 fL (83.0-100.0); Mean Platelet Volume 9.2 fL (9.4-12.4); Monocytes # 0.4 K/mcL (0.0-1.3); Monocytes % 7.3 %; Neutrophils # 3.3 K/mcL (1.6-8.9); Platelet Count 225 K/mcL (140-400); Red Blood Count 4.08 M/mcL (3.82-4.97); Red Cell Distribution Width 13.4 % (11.5-14.5); Segmented Neutrophils % 62.4 %
[2016-08-29 04:24] LABS: BUN/Creatinine Ratio 11 (6-26); Blood Urea Nitrogen 9 mg/dL (7-20); Calcium 9.3 mg/dL (8.6-10.8); Carbon Dioxide 27 mEq/L (19-29); Chloride 104 mEq/L (98-109); Glucose 107 mg/dL (70-99); Magnesium 1.9 mg/dL (1.6-2.6); Osmolality,Calculated 287 (280-300); Potassium 3.8 mEq/L (3.5-4.5); Sodium 139 mEq/L (136-145); eGFR For African Americans > 60 (> 60); eGFR For Non-African Americans > 60 (> 60)
[2016-08-29] MEDS: *HR* Enoxaparin 40 MG/0.4 ML SYRINGE SQ SCH (06:11)
[2016-08-29] MEDS: Pantoprazole 40 MG VIAL IVP SCH ×2 (06:16→21:16)
[2016-08-29] MEDS: *HR* Promethazine 25 MG/ML VIAL IVP PRN ×3 (06:16→19:49)
[2016-08-29] MEDS: Budesonide/Formoterol 160/4.5 MDI IH SCH ×2 (07:39→19:35)
--- NOTE | 2016-08-29 09:00 | Internal Med Progress Note ---
<Mele Beard - Last Filed: 08/29/16 11:20> Date of Encounter: 08/29/16 Time of Encounter: 08:45 - Assessment and plan (1) Acute intermittent porphyria Current Visit: Yes Status: Acute Assessment and plan: Patient has had acute intermittent porphyria since 7 years old, she has had multiple episodes of acute attacks over the course of her life. Current symptoms are similar to prior episodes, that usually last 1-2 weeks. She reports that triggers are usually an infection. she had sinusitis last week We will provide supportive care and monitor patient until resolution is achieved. Patient is slowly improving, but still requiring IV dilaudid. Continue pain medications with Dilaudid Q3Hr and Percocet 10/325 every 6 hours when necessary Nausea control 4 mg Zofran every 6 hours when necessary 12.5 mg Phenergan every 6 hours when necessary Continue IV fluids, with D5-0.45 saline at 100 mls/hr, until patient able to tolerate by mouth (2) Migraines Current Visit: Yes Status: Acute Assessment and plan: Patient headaches under control currently. Patient has history of migraines and takes sumatriptan at home. Qualifiers: Migraine type: without aura Status migrainosus presence: without status migrainosus Intractability: not intractable Qualified Code(s): G43.009 - Migraine without aura, not intractable, without status migrainosus (3) Asthma Current Visit: Yes Status: Acute Assessment and plan: Not in exacerbation. Patient has history of asthma and has albuterol inhaler and Symbicort at home. Continue albuterol sulfate inhaler 1 puff every 6 hours when necessary Continue Symbicort 160/4.52 puffs twice a day Qualifiers: Asthma severity: unspecified severity Asthma complication type: uncomplicated Qualified Code(s): J45.909 - Unspecified asthma, uncomplicated (4) Hypertension Current Visit: No Status: Chronic Assessment and plan: Continue home medication of metoprolol succinate 25 mg daily Qualifiers: Hypertension type: essential hypertension Qualified Code(s): I10 - Essential (primary) hypertension (5) DVT prophylaxis Current Visit: No Status: Acute Assessment and plan: 40 mg Lovenox daily - Subjective Interval history: Patient reports that she is continuing to feel bad today. She reports having continued abdominal pain as well as nausea (without emesis today). Her headache is improved overall, but she looks uncomfortable when examined today. She states that these bouts of AIP usually last 1-2 weeks before she is able to handle them adequately at home. - Constitutional Vitals: Temp Pulse Resp BP Pulse Ox 98.0 F 81 16 103/67 94 08/29/16 06:35 08/29/16 06:35 08/29/16 06:35 08/29/16 06:35 08/29/16 06:35 General appearance: Present: cooperative, mild distress, A&O X 3, morbidly obese , pleasant, answers questions appropriately Exam: General: Cooperative, pleasant, mild distress, alert and oriented 3, answers questions appropriately HEENT: Normocephalic, atraumatic, neck supple, trachea midline, oral mucosa moist Respiratory: No accessory muscle usage, clear to auscultation bilaterally, no wheezes/rhonchi/rales appreciated Cardiovascular: Regular rate and rhythm, S1 and S2 present, no murmurs/rubs/ gallops/clicks appreciated GI/abdominal: Nondistended, tenderness to palpation in the epigastric region, soft, normal bowel sounds, no peritoneal signs Extremities: No calf tenderness, noncyanotic, no pedal edema appreciated, warm, lower extremity pulses palpable and symmetrical Neurological: Alert and oriented 3, no facial droop, no focal deficits Skin: Dry, intact, normal color Internal Medicine: Result - Labs CBC & Chem 7: 08/29/16 03:58 08/29/16 03:58 Labs: Short CBC 08/29/16 Range/Units 03:58 WBC 5.2 (4.3-11.1) K/mcL Hgb 11.9 (11.5-15.4) g/dL Hct 37.3 (35.3-44.9) % Plt Count 225 (140-400) K/mcL Neutrophils # 3.3 (1.6-8.9) K/mcL BMP 08/29/16 03:58 Sodium 139 Potassium 3.8 Chloride 104 Carbon Dioxide 27 BUN 9 Creatinine 0.79 Glucose 107 H Calcium 9.3 - VTE Documentation of Mechanical Device: Graduated compression elastic hosiery Consult Discharge Plan - Plan Referrals: Jasiel Cox DO [Primary Care Provider] - <eDepa Stiles E - Last Filed: 06/19/17 16:41> Date of Encounter: 08/29/16 - Assessment and plan (1) Intractable nausea and vomiting Current Visit: Yes Status: Acute Qualifiers: Vomiting type: unspecified Qualified Code(s): R11.2 - Nausea with vomiting , unspecified (2) Acute intermittent porphyria Current Visit: Yes Status: Acute (3) Asthma Current Visit: Yes Status: Acute Qualifiers: Asthma severity: unspecified severity Asthma complication type: uncomplicated Qualified Code(s): J45.909 - Unspecified asthma, uncomplicated (4) Hypertension Current Visit: No Status: Chronic Qualifiers: Hypertension type: essential hypertension Qualified Code(s): I10 - Essential (primary) hypertension - Constitutional Vitals: Temp Pulse Resp BP Pulse Ox 98.4 F 81 16 100/62 94 08/29/16 11:18 08/29/16 11:18 08/29/16 11:18 08/29/16 11:18 08/29/16 11:18 Internal Medicine: Result - Labs CBC & Chem 7: 08/29/16 03:58 08/29/16 03:58 Labs: Short CBC 08/29/16 Range/Units 03:58 WBC 5.2 (4.3-11.1) K/mcL Hgb 11.9 (11.5-15.4) g/dL Hct 37.3 (35.3-44.9) % Plt Count 225 (140-400) K/mcL Neutrophils # 3.3 (1.6-8.9) K/mcL BMP 08/29/16 03:58 Sodium 139 Potassium 3.8 Chloride 104 Carbon Dioxide 27 BUN 9 Creatinine 0.79 Glucose 107 H Calcium 9.3 - Attending Attestation I examined this patient and reviewed laboratory, imaging and all diagnostic data. My medical decision-making was reviewed with Dr Mele Beard - Resident Physician. I agree with the documented findings, disposition and treatment plan as described above with the following additions.
[2016-08-29] MEDS: Metoprolol XL (24 HR) Succ 25 MG TAB.ER.24H PO SCH (09:17)
[2016-08-29] MEDS ORDERED: D5% in 0.45% NACL 1,000 ML IVC ONE (09:29)
[2016-08-29] MEDS: D5% in 0.45% NACL 1,000 ML IVC SCH ×2 (09:37→19:48)
[2016-08-30] MEDS: *HR* Promethazine 25 MG/ML VIAL IVP PRN ×3 (04:18→18:20)
[2016-08-30] MEDS: *HR* HYDROmorphone (PF) 1 MG/ML SYRINGE IVP PRN ×6 (04:18→23:04)
[2016-08-30] MEDS: D5% in 0.45% NACL 1,000 ML IVC SCH ×2 (05:08→15:09)
[2016-08-30] MEDS: Pantoprazole 40 MG VIAL IVP SCH ×2 (05:09→17:35)
[2016-08-30] MEDS: *HR* Enoxaparin 40 MG/0.4 ML SYRINGE SQ SCH (05:49)
[2016-08-30] MEDS: Budesonide/Formoterol 160/4.5 MDI IH SCH ×2 (08:14→20:19)
[2016-08-30] MEDS: Ondansetron 4 MG/2 ML VIAL IVP PRN ×3 (08:43→23:04)
[2016-08-30] MEDS: Metoprolol XL (24 HR) Succ 25 MG TAB.ER.24H PO SCH (08:43)
--- NOTE | 2016-08-30 17:24 | Internal Med Progress Note ---
Date of Encounter: 08/30/16 Time of Encounter: 17:22 - Assessment and plan (1) Acute intermittent porphyria Current Visit: Yes Status: Acute Assessment and plan: Patient has had acute intermittent porphyria since 7 years old, she has had multiple episodes of acute attacks over the course of her life. Current symptoms are similar to prior episodes, that usually last 1-2 weeks. She reports that triggers are usually an infection. she had sinusitis last week We will provide supportive care and monitor patient until resolution is achieved. Has tried Hemin before Patient is slowly improving, but still requiring IV dilaudid. Continue pain medications with Dilaudid Q3Hr and Percocet 10/325 every 6 hours when necessary Nausea control 4 mg Zofran every 6 hours when necessary 12.5 mg Phenergan every 6 hours when necessary Continue IV fluids, continue D10, until patient able to tolerate by mouth (2) Intractable nausea and vomiting Current Visit: Yes Status: Acute Assessment and plan: secondary to AIP. Qualifiers: Vomiting type: unspecified Qualified Code(s): R11.2 - Nausea with vomiting , unspecified (3) NAFLD (nonalcoholic fatty liver disease) Current Visit: No Status: Chronic (4) Obesity Current Visit: No Status: Acute Qualifiers: Obesity type: due to excess calories Obesity severity: unspecified obesity severity Qualified Code(s): E66.09 - Other obesity due to excess calories (5) Asthma Current Visit: Yes Status: Acute Assessment and plan: Not in exacerbation. Patient has history of asthma and has albuterol inhaler and Symbicort at home. Continue albuterol sulfate inhaler 1 puff every 6 hours when necessary Continue Symbicort 160/4.52 puffs twice a day Qualifiers: Asthma severity: unspecified severity Asthma complication type: uncomplicated Qualified Code(s): J45.909 - Unspecified asthma, uncomplicated (6) Migraines Current Visit: Yes Status: Acute Qualifiers: Migraine type: without aura Status migrainosus presence: without status migrainosus Intractability: not intractable Qualified Code(s): G43.009 - Migraine without aura, not intractable, without status migrainosus - Subjective Interval history: complains still of abdominal pain 6/10, mild nausea, no dysuria, no vomiting, no CP or SOB, no fever - Constitutional Vitals: Temp Pulse Resp BP Pulse Ox 97.7 F 71 16 138/65 95 08/30/16 16:19 08/30/16 16:19 08/30/16 16:19 08/30/16 16:19 08/30/16 16:19 General appearance: Present: cooperative, mild distress, A&O X 3, morbidly obese , pleasant, answers questions appropriately - Head Head exam: Present: atraumatic, normocephalic - Eye Eye exam: Present: PERRL, conjuntiva pink, sclera anicteric Pupils: Present: PERRL - Neck Neck exam general surgery: Present: supple, trachea midline. Absent: lymphadenopathy - Respiratory Respiratory exam: Present: CTAB. Absent: accessory muscle use, rales, rhonchi, wheezes - Cardiovascular Cardiovascular exam: Present: RRR, +S1, +S2. Absent: diastolic murmur, gallop, rubs, systolic murmur - GI/Abdominal GI/Abdominal exam: Present: distended, normal bowel sounds, soft, tenderness ( diffuse tenderness), no peritoneal signs - Extremities Exam Extremities exam: Present: warm, radial pulses palpable and symetrical. Absent : calf tenderness, cyanotic, pedal edema - Neurological Exam Neurological exam: Present: CN II-XII intact, oriented X3, no focal deficits. Absent: pronater drift, facial droop, speech deficit - Skin Skin exam: Present: dry, intact Internal Medicine: Result - Labs CBC & Chem 7: 08/29/16 03:58 08/29/16 03:58 - VTE Documentation of Mechanical Device: Graduated compression elastic hosiery Consult Discharge Plan - Plan Referrals: Jasiel Cox DO [Primary Care Provider] -
[2016-08-31] MEDS: *HR* HYDROmorphone (PF) 1 MG/ML SYRINGE IVP PRN ×8 (02:02→23:15)
[2016-08-31] MEDS: *HR* Promethazine 25 MG/ML VIAL IVP PRN ×3 (02:02→21:43)
[2016-08-31] MEDS: D5% in 0.45% NACL 1,000 ML IVC SCH ×2 (02:02→12:37)
[2016-08-31] MEDS: Pantoprazole 40 MG VIAL IVP SCH ×2 (05:34→18:17)
[2016-08-31] MEDS: *HR* Enoxaparin 40 MG/0.4 ML SYRINGE SQ SCH (05:34)
[2016-08-31] MEDS: Ondansetron 4 MG/2 ML VIAL IVP PRN ×2 (05:34→15:43)
[2016-08-31] MEDS: Budesonide/Formoterol 160/4.5 MDI IH SCH ×2 (08:43→19:44)
[2016-08-31] MEDS: Metoprolol XL (24 HR) Succ 25 MG TAB.ER.24H PO SCH (08:59)
--- NOTE | 2016-08-31 13:55 | Internal Med Progress Note ---
Date of Encounter: 08/31/16 Time of Encounter: 13:52 - Assessment and plan (1) Acute intermittent porphyria Current Visit: Yes Status: Acute Assessment and plan: Patient has had acute intermittent porphyria since 7 years old, she has had multiple episodes of acute attacks over the course of her life. Current symptoms are similar to prior episodes, that usually last 1-2 weeks. She reports that triggers are usually an infection. she had sinusitis last week We will provide supportive care and monitor patient until resolution is achieved. Has tried Hemin before Was improving but felt worse today, still requiring IV dilaudid. Continue pain medications with Dilaudid Q3Hr and Percocet 10/325 every 6 hours when necessary Nausea control 4 mg Zofran every 6 hours when necessary 12.5 mg Phenergan every 6 hours when necessary Continue IV fluids, continue D10, until patient able to tolerate by mouth The hospital does not carry hemin (2) Intractable nausea and vomiting Current Visit: Yes Status: Acute Assessment and plan: secondary to AIP. Qualifiers: Vomiting type: unspecified Qualified Code(s): R11.2 - Nausea with vomiting , unspecified (3) NAFLD (nonalcoholic fatty liver disease) Current Visit: No Status: Chronic (4) Obesity Current Visit: No Status: Acute Qualifiers: Obesity type: due to excess calories Obesity severity: unspecified obesity severity Qualified Code(s): E66.09 - Other obesity due to excess calories (5) Asthma Current Visit: Yes Status: Acute Assessment and plan: Not in exacerbation. Patient has history of asthma and has albuterol inhaler and Symbicort at home. Continue albuterol sulfate inhaler 1 puff every 6 hours when necessary Continue Symbicort 160/4.52 puffs twice a day Qualifiers: Asthma severity: unspecified severity Asthma complication type: uncomplicated Qualified Code(s): J45.909 - Unspecified asthma, uncomplicated (6) Migraines Current Visit: Yes Status: Acute Assessment and plan: Patient headaches under control currently. Patient has history of migraines and takes sumatriptan at home. Qualifiers: Migraine type: without aura Status migrainosus presence: without status migrainosus Intractability: not intractable Qualified Code(s): G43.009 - Migraine without aura, not intractable, without status migrainosus - Subjective Interval history: the patient saysshe had a very rough night and morning, complains of excruciating abdominal pain 10/10, mild nausea, no dysuria, no vomiting, no CP or SOB, no fever, did not improved since yesterday - Constitutional Vitals: Temp Pulse Resp BP Pulse Ox 98.2 F 75 16 125/84 97 08/31/16 11:58 08/31/16 11:58 08/31/16 11:58 08/31/16 11:58 08/31/16 11:58 General appearance: Present: cooperative, mild distress, A&O X 3, morbidly obese , pleasant, answers questions appropriately - Head Head exam: Present: atraumatic, normocephalic - Eye Eye exam: Present: PERRL, conjuntiva pink, sclera anicteric Pupils: Present: PERRL - Neck Neck exam general surgery: Present: supple, trachea midline. Absent: lymphadenopathy - Respiratory Respiratory exam: Present: CTAB. Absent: accessory muscle use, rales, rhonchi, wheezes - Cardiovascular Cardiovascular exam: Present: RRR, +S1, +S2. Absent: diastolic murmur, gallop, rubs, systolic murmur - GI/Abdominal GI/Abdominal exam: Present: normal bowel sounds, soft, tenderness (diffuse abdominal tenderness, no rebound), no peritoneal signs. Absent: distended - Extremities Exam Extremities exam: Present: warm, radial pulses palpable and symetrical. Absent : calf tenderness, cyanotic, pedal edema - Neurological Exam Neurological exam: Present: CN II-XII intact, oriented X3, no focal deficits. Absent: pronater drift, facial droop, speech deficit - Skin Skin exam: Present: dry, intact Internal Medicine: Result - Labs CBC & Chem 7: 08/29/16 03:58 08/29/16 03:58 - VTE Documentation of Mechanical Device: Graduated compression elastic hosiery Consult Discharge Plan - Plan Referrals: Jasiel Cox DO [Primary Care Provider] -
[2016-08-31] MEDS: D10% in Water 500 ML IVC SCH ×2 (14:12→22:18)
[2016-08-31] MEDS ORDERED: *HR* HYDROmorphone (PF) 1 MG/ML SYRINGE IVP ONE (22:58)
[2016-09-01] MEDS: Ondansetron 4 MG/2 ML VIAL IVP PRN ×3 (02:33→20:51)
[2016-09-01] MEDS: *HR* HYDROmorphone (PF) 1 MG/ML SYRINGE IVP PRN ×7 (02:33→20:51)
[2016-09-01] MEDS: D10% in Water 500 ML IVC SCH ×3 (05:27→18:46)
[2016-09-01] MEDS: *HR* Promethazine 25 MG/ML VIAL IVP PRN ×3 (05:32→17:51)
[2016-09-01] MEDS: *HR* Enoxaparin 40 MG/0.4 ML SYRINGE SQ SCH (05:32)
[2016-09-01] MEDS: Pantoprazole 40 MG VIAL IVP SCH ×2 (05:32→17:52)
--- NOTE | 2016-09-01 08:42 | Internal Med Progress Note ---
Date of Encounter: 09/01/16 Time of Encounter: 08:39 - Assessment and plan (1) Acute intermittent porphyria Current Visit: Yes Status: Acute Assessment and plan: Patient has had acute intermittent porphyria since 7 years old, she has had multiple episodes of acute attacks over the course of her life. Current symptoms are similar to prior episodes, that usually last 1-2 weeks. She reports that triggers are usually an infection. she had sinusitis last week We will provide supportive care and monitor patient until resolution is achieved. Has tried Hemin before, spoke with pharmacy and we will try to get it from outside the hospital, option to transfer her to a different facility was given and the patient will think about it Was improving but felt worse again, still requiring IV dilaudid. Continue pain medications with Dilaudid Q3Hr and Percocet 10/325 every 6 hours when necessary Nausea control 4 mg Zofran every 6 hours when necessary 12.5 mg Phenergan every 6 hours when necessary Continue D10, until patient able to tolerate by mouth (2) Intractable nausea and vomiting Current Visit: Yes Status: Acute Assessment and plan: secondary to AIP. Qualifiers: Vomiting type: unspecified Qualified Code(s): R11.2 - Nausea with vomiting , unspecified (3) NAFLD (nonalcoholic fatty liver disease) Current Visit: No Status: Chronic (4) Obesity Current Visit: No Status: Acute Qualifiers: Obesity type: due to excess calories Obesity severity: unspecified obesity severity Qualified Code(s): E66.09 - Other obesity due to excess calories (5) Asthma Current Visit: Yes Status: Acute Assessment and plan: Not in exacerbation. Patient has history of asthma and has albuterol inhaler and Symbicort at home. Continue albuterol sulfate inhaler 1 puff every 6 hours when necessary Continue Symbicort 160/4.52 puffs twice a day Qualifiers: Asthma severity: unspecified severity Asthma complication type: uncomplicated Qualified Code(s): J45.909 - Unspecified asthma, uncomplicated (6) Migraines Current Visit: Yes Status: Acute Assessment and plan: Patient headaches under control currently. Patient has history of migraines and takes sumatriptan at home. Qualifiers: Migraine type: without aura Status migrainosus presence: without status migrainosus Intractability: not intractable Qualified Code(s): G43.009 - Migraine without aura, not intractable, without status migrainosus - Subjective Interval history: She had a very rough night and morning, complains of excruciating abdominal pain 10/10 not improving, mild nausea, no dysuria, no vomiting, no CP or SOB, no fever, did not improved since yesterday - Constitutional Vitals: Temp Pulse Resp BP Pulse Ox 98.3 F 79 16 108/69 98 09/01/16 06:54 09/01/16 06:54 09/01/16 06:54 09/01/16 06:54 09/01/16 06:54 General appearance: Present: cooperative, mild distress, A&O X 3, morbidly obese , pleasant, answers questions appropriately - Head Head exam: Present: atraumatic, normocephalic - Eye Eye exam: Present: PERRL, conjuntiva pink, sclera anicteric Pupils: Present: PERRL - Neck Neck exam general surgery: Present: supple, trachea midline. Absent: lymphadenopathy - Respiratory Respiratory exam: Present: CTAB. Absent: accessory muscle use, rales, rhonchi, wheezes Additional comments: Right upper chest Port-A-Cath - Cardiovascular Cardiovascular exam: Present: RRR, +S1, +S2. Absent: diastolic murmur, gallop, rubs, systolic murmur - GI/Abdominal GI/Abdominal exam: Present: normal bowel sounds, soft, tenderness (diffuse), no peritoneal signs. Absent: distended - Extremities Exam Extremities exam: Present: warm, radial pulses palpable and symetrical. Absent : calf tenderness, cyanotic, pedal edema - Neurological Exam Neurological exam: Present: CN II-XII intact, oriented X3, no focal deficits. Absent: pronater drift, facial droop, speech deficit - Skin Skin exam: Present: dry, intact Internal Medicine: Result - Labs CBC & Chem 7: 08/29/16 03:58 08/29/16 03:58 - VTE Documentation of Mechanical Device: Graduated compression elastic hosiery Consult Discharge Plan - Plan Referrals: Roxie Wolf CNP [Advanced Practice Nurse] - 09/08/16 2:30 pm Jasiel Cox DO [Primary Care Provider] -
[2016-09-01] MEDS: Metoprolol XL (24 HR) Succ 25 MG TAB.ER.24H PO SCH (08:47)
[2016-09-01] MEDS: Budesonide/Formoterol 160/4.5 MDI IH SCH ×2 (09:21→21:04)
[2016-09-02] MEDS: *HR* HYDROmorphone (PF) 1 MG/ML SYRINGE IVP PRN ×8 (00:10→21:56)
[2016-09-02] MEDS: *HR* Promethazine 25 MG/ML VIAL IVP PRN ×4 (00:10→21:56)
[2016-09-02] MEDS: D10% in Water 500 ML IVC SCH ×5 (00:19→22:08)
[2016-09-02] MEDS: Ondansetron 4 MG/2 ML VIAL IVP PRN ×3 (03:16→18:38)
[2016-09-02] MEDS: *HR* Enoxaparin 40 MG/0.4 ML SYRINGE SQ SCH (06:02)
[2016-09-02] MEDS: Pantoprazole 40 MG VIAL IVP SCH ×2 (06:02→18:05)
[2016-09-02] MEDS: Budesonide/Formoterol 160/4.5 MDI IH SCH ×2 (07:51→20:12)
[2016-09-02] MEDS: Metoprolol XL (24 HR) Succ 25 MG TAB.ER.24H PO SCH (08:41)
--- NOTE | 2016-09-02 10:34 | Internal Med Progress Note ---
Date of Encounter: 09/02/16 Time of Encounter: 10:32 - Assessment and plan (1) Acute intermittent porphyria Current Visit: Yes Status: Acute Assessment and plan: Patient has had acute intermittent porphyria since 7 years old, she has had multiple episodes of acute attacks over the course of her life. Current symptoms are similar to prior episodes, that usually last 1-2 weeks. She reports that triggers are usually an infection. she had sinusitis last week Has tried Hemin before, spoke with pharmacy and we will try to get it from outside the hospital, option to transfer her to a different facility was given and the patient prefers not to be transferred out of the moment she is feeling slightly better. Continue pain medications with Dilaudid Q3Hr and Percocet 10/325 every 6 hours when necessary Nausea control 4 mg Zofran every 6 hours when necessary 12.5 mg Phenergan every 6 hours when necessary Continue D10 (2) Intractable nausea and vomiting Current Visit: Yes Status: Acute Assessment and plan: secondary to AIP. Qualifiers: Vomiting type: unspecified Qualified Code(s): R11.2 - Nausea with vomiting , unspecified (3) NAFLD (nonalcoholic fatty liver disease) Current Visit: No Status: Chronic (4) Obesity Current Visit: No Status: Acute Qualifiers: Obesity type: due to excess calories Obesity severity: unspecified obesity severity Qualified Code(s): E66.09 - Other obesity due to excess calories (5) Asthma Current Visit: Yes Status: Acute Assessment and plan: Not in exacerbation. Patient has history of asthma and has albuterol inhaler and Symbicort at home. Continue albuterol sulfate inhaler 1 puff every 6 hours when necessary Continue Symbicort 160/4.52 puffs twice a day Qualifiers: Asthma severity: unspecified severity Asthma complication type: uncomplicated Qualified Code(s): J45.909 - Unspecified asthma, uncomplicated (6) Migraines Current Visit: Yes Status: Acute Assessment and plan: Patient headaches under control currently. Patient has history of migraines and takes sumatriptan at home. Qualifiers: Migraine type: without aura Status migrainosus presence: without status migrainosus Intractability: not intractable Qualified Code(s): G43.009 - Migraine without aura, not intractable, without status migrainosus - Subjective Interval history: Mica better last night, complains of abdominal pain /10 slowly improving, mild nausea, no dysuria, no vomiting, no CP or SOB, no fever, did not improved since yesterday - Constitutional Vitals: Temp Pulse Resp BP Pulse Ox 98.2 F 78 16 117/79 96 09/02/16 07:18 09/02/16 07:18 09/02/16 07:51 09/02/16 07:18 09/02/16 07:51 General appearance: Present: cooperative, mild distress, A&O X 3, morbidly obese , pleasant, answers questions appropriately - Head Head exam: Present: atraumatic, normocephalic - Eye Eye exam: Present: PERRL, conjuntiva pink, sclera anicteric Pupils: Present: PERRL - Neck Neck exam general surgery: Present: supple, trachea midline. Absent: lymphadenopathy - Respiratory Respiratory exam: Present: CTAB. Absent: accessory muscle use, rales, rhonchi, wheezes - Cardiovascular Cardiovascular exam: Present: RRR, +S1, +S2. Absent: diastolic murmur, gallop, rubs, systolic murmur - GI/Abdominal GI/Abdominal exam: Present: normal bowel sounds, soft, tenderness (Diffuse tenderness, no rebound), no peritoneal signs. Absent: distended - Extremities Exam Extremities exam: Present: warm, radial pulses palpable and symetrical. Absent : calf tenderness, cyanotic, pedal edema - Neurological Exam Neurological exam: Present: CN II-XII intact, oriented X3, no focal deficits. Absent: pronater drift, facial droop, speech deficit - Skin Skin exam: Present: dry, intact Internal Medicine: Result - Labs CBC & Chem 7: 08/29/16 03:58 08/29/16 03:58 - VTE Documentation of Mechanical Device: Graduated compression elastic hosiery Consult Discharge Plan - Plan Referrals: Roxie Wolf CNP [Advanced Practice Nurse] - 09/08/16 2:30 pm Jasiel Cox DO [Primary Care Provider] -
[2016-09-02] MEDS ORDERED: Mag Hydrox/Al Hydrox/Simeth 30 ML UDC PO PRN (10:46)
[2016-09-03] MEDS: Ondansetron 4 MG/2 ML VIAL IVP PRN ×4 (00:57→22:01)
[2016-09-03] MEDS: *HR* HYDROmorphone (PF) 1 MG/ML SYRINGE IVP PRN ×7 (00:58→22:02)
[2016-09-03 03:19] LABS: Hematocrit 32.2 % (35.3-44.9); Hemoglobin 10.4 g/dL (11.5-15.4); Mean Corpuscular HGB Conc 32.3 g/dL (31.6-35.5); Mean Corpuscular Hemoglobin 29.6 pg (28.0-33.3); Mean Corpuscular Volume 91.7 fL (83.0-100.0); Mean Platelet Volume 9.6 fL (9.4-12.4); Platelet Count 220 K/mcL (140-400); Red Blood Count 3.51 M/mcL (3.82-4.97); Red Cell Distribution Width 13.2 % (11.5-14.5)
[2016-09-03 03:32] LABS: Alanine Aminotransferase 50 Units/L (0-55); Albumin 3.3 g/dL (3.5-5.0); Alkaline Phosphatase 116 Units/L (38-126); Aspartate Amino Transferase 31 Units/L (5-34); BUN/Creatinine Ratio 16 (6-26); Bilirubin,Total 0.4 mg/dL (0.2-1.2); Blood Urea Nitrogen 12 mg/dL (7-20); Calcium 8.6 mg/dL (8.6-10.8); Carbon Dioxide 25 mEq/L (19-29); Chloride 106 mEq/L (98-109); Globulin 3.2 g/dL (2.4-3.5); Glucose 113 mg/dL (70-99); Osmolality,Calculated 289 (280-300); Potassium 3.8 mEq/L (3.5-4.5); Sodium 139 mEq/L (136-145); Total Protein 6.5 g/dL (6.0-8.3); eGFR For African Americans > 60 (> 60); eGFR For Non-African Americans > 60 (> 60)
[2016-09-03] MEDS: *HR* Promethazine 25 MG/ML VIAL IVP PRN ×3 (04:29→18:36)
[2016-09-03] MEDS: D10% in Water 500 ML IVC SCH ×3 (06:13→19:06)
[2016-09-03] MEDS: *HR* Enoxaparin 40 MG/0.4 ML SYRINGE SQ SCH (06:15)
[2016-09-03] MEDS: Pantoprazole 40 MG VIAL IVP SCH ×2 (06:15→18:10)
--- NOTE | 2016-09-03 07:32 | Internal Med Progress Note ---
Date of Encounter: 09/03/16 Time of Encounter: 07:31 - Assessment and plan (1) Acute intermittent porphyria Current Visit: Yes Status: Acute Assessment and plan: Patient has had acute intermittent porphyria since 7 years old, she has had multiple episodes of acute attacks over the course of her life. Current symptoms are similar to prior episodes, that usually last 1-2 weeks. She reports that triggers are usually an infection. she had sinusitis last week Has tried Hemin before, spoke with pharmacy and we will try to get it from outside the hospital, option to transfer her to a different facility was given and the patient prefers not to be transferred out of the moment she is feeling slightly better. Continue pain medications with Dilaudid Q3Hr and Percocet 10/325 every 6 hours when necessary Nausea control 4 mg Zofran every 6 hours when necessary 12.5 mg Phenergan every 6 hours when necessary Continue D10 (2) Intractable nausea and vomiting Current Visit: Yes Status: Acute Assessment and plan: secondary to AIP. Qualifiers: Vomiting type: unspecified Qualified Code(s): R11.2 - Nausea with vomiting , unspecified (3) NAFLD (nonalcoholic fatty liver disease) Current Visit: No Status: Chronic (4) Obesity Current Visit: No Status: Acute Qualifiers: Obesity type: due to excess calories Obesity severity: unspecified obesity severity Qualified Code(s): E66.09 - Other obesity due to excess calories (5) Asthma Current Visit: Yes Status: Acute Assessment and plan: Not in exacerbation. Patient has history of asthma and has albuterol inhaler and Symbicort at home. Continue albuterol sulfate inhaler 1 puff every 6 hours when necessary Continue Symbicort 160/4.52 puffs twice a day Qualifiers: Asthma severity: unspecified severity Asthma complication type: uncomplicated Qualified Code(s): J45.909 - Unspecified asthma, uncomplicated (6) Migraines Current Visit: Yes Status: Acute Assessment and plan: Patient headaches under control currently. Patient has history of migraines and takes sumatriptan at home. Qualifiers: Migraine type: without aura Status migrainosus presence: without status migrainosus Intractability: not intractable Qualified Code(s): G43.009 - Migraine without aura, not intractable, without status migrainosus - Subjective Interval history: Complains of abdominal pain 6/10 slowly improving, mild nausea, no dysuria, no vomiting, no CP or SOB, no fever - Constitutional Vitals: Temp Pulse Resp BP Pulse Ox 97.7 F 77 16 108/58 95 09/03/16 06:36 09/03/16 06:36 09/03/16 06:36 09/03/16 06:36 09/03/16 06:36 General appearance: Present: cooperative, mild distress, A&O X 3, morbidly obese , pleasant, answers questions appropriately - Head Head exam: Present: atraumatic, normocephalic - Eye Eye exam: Present: PERRL, conjuntiva pink, sclera anicteric Pupils: Present: PERRL - Neck Neck exam general surgery: Present: supple, trachea midline. Absent: lymphadenopathy - Respiratory Respiratory exam: Present: CTAB. Absent: accessory muscle use, rales, rhonchi, wheezes - Cardiovascular Cardiovascular exam: Present: RRR, +S1, +S2. Absent: diastolic murmur, gallop, rubs, systolic murmur - GI/Abdominal GI/Abdominal exam: Present: distended, normal bowel sounds, soft, tenderness ( Mild diffuse abdominal tenderness, no rebound), no peritoneal signs - Extremities Exam Extremities exam: Present: warm, radial pulses palpable and symetrical. Absent : calf tenderness, cyanotic, pedal edema - Neurological Exam Neurological exam: Present: CN II-XII intact, oriented X3, no focal deficits. Absent: pronater drift, facial droop, speech deficit - Skin Skin exam: Present: dry, intact Internal Medicine: Result - Labs CBC & Chem 7: 09/03/16 03:05 09/03/16 03:05 Labs: Short CBC 09/03/16 Range/Units 03:05 WBC 5.8 (4.3-11.1) K/mcL Hgb 10.4 L D (11.5-15.4) g/dL Hct 32.2 L (35.3-44.9) % Plt Count 220 (140-400) K/mcL BMP 09/03/16 03:05 Sodium 139 Potassium 3.8 Chloride 106 Carbon Dioxide 25 BUN 12 Creatinine 0.75 Glucose 113 H Calcium 8.6 Liver Function 09/03/16 Range/Units 03:05 Total Bilirubin 0.4 (0.2-1.2) mg/dL AST 31 (5-34) Units/L ALT 50 (0-55) Units/L Alkaline Phosphatase 116 (38-126) Units/L Albumin 3.3 L (3.5-5.0) g/dL - VTE Documentation of Mechanical Device: Graduated compression elastic hosiery Consult Discharge Plan - Plan Referrals: Roxie Wolf, GEORGE [Advanced Practice Nurse] - 09/08/16 2:30 pm Jasiel Cox DO [Primary Care Provider] -
[2016-09-03] MEDS ORDERED: *HR* HYDROmorphone (PF) 1 MG/ML SYRINGE ONE (07:57)
[2016-09-03] MEDS: Metoprolol XL (24 HR) Succ 25 MG TAB.ER.24H PO SCH ×2 (08:01→08:06)
[2016-09-03] MEDS: Budesonide/Formoterol 160/4.5 MDI IH SCH ×2 (08:23→20:07)
[2016-09-04] MEDS: *HR* HYDROmorphone (PF) 1 MG/ML SYRINGE IVP PRN ×7 (02:08→23:55)
[2016-09-04] MEDS: *HR* Promethazine 25 MG/ML VIAL IVP PRN (02:09)
[2016-09-04] MEDS: D10% in Water 500 ML IVC SCH ×4 (03:37→22:21)
[2016-09-04] MEDS: *HR* OxyCODONE/APAP 10/325 TABLET PO PRN ×2 (03:38→22:19)
[2016-09-04] MEDS: Ondansetron 4 MG/2 ML VIAL IVP PRN ×3 (05:02→19:55)
[2016-09-04] MEDS: Pantoprazole 40 MG VIAL IVP SCH ×2 (05:02→17:14)
[2016-09-04] MEDS: *HR* Enoxaparin 40 MG/0.4 ML SYRINGE SQ SCH (06:42)
[2016-09-04] MEDS: Metoprolol XL (24 HR) Succ 25 MG TAB.ER.24H PO SCH ×2 (07:38→07:40)
[2016-09-04] MEDS: Budesonide/Formoterol 160/4.5 MDI IH SCH ×2 (08:11→20:20)
--- NOTE | 2016-09-04 09:19 | Internal Med Progress Note ---
Date of Encounter: 09/04/16 Time of Encounter: 09:18 - Assessment and plan (1) Acute intermittent porphyria Current Visit: Yes Status: Acute Assessment and plan: Patient has had acute intermittent porphyria since 7 years old, she has had multiple episodes of acute attacks over the course of her life. Current symptoms are similar to prior episodes, that usually last 1-2 weeks. She reports that triggers are usually an infection. she had sinusitis last week Has tried Hemin before, spoke with pharmacy and we will try to get it from outside the hospital, option to transfer her to a different facility was given and the patient prefers not to be transferred out of the moment . Continue pain medications with Dilaudid Q3Hr and Percocet 10/325 every 6 hours when necessary Nausea control 4 mg Zofran every 6 hours when necessary 12.5 mg Phenergan every 6 hours when necessary Continue D10 (2) Intractable nausea and vomiting Current Visit: Yes Status: Acute Assessment and plan: secondary to AIP. Qualifiers: Vomiting type: unspecified Qualified Code(s): R11.2 - Nausea with vomiting , unspecified (3) NAFLD (nonalcoholic fatty liver disease) Current Visit: No Status: Chronic (4) Obesity Current Visit: No Status: Acute Qualifiers: Obesity type: due to excess calories Obesity severity: unspecified obesity severity Qualified Code(s): E66.09 - Other obesity due to excess calories (5) Asthma Current Visit: Yes Status: Acute Assessment and plan: Not in exacerbation. Patient has history of asthma and has albuterol inhaler and Symbicort at home. Continue albuterol sulfate inhaler 1 puff every 6 hours when necessary Continue Symbicort 160/4.52 puffs twice a day Qualifiers: Asthma severity: unspecified severity Asthma complication type: uncomplicated Qualified Code(s): J45.909 - Unspecified asthma, uncomplicated (6) Migraines Current Visit: Yes Status: Acute Assessment and plan: Patient headaches under control currently. Patient has history of migraines and takes sumatriptan at home. Qualifiers: Migraine type: without aura Status migrainosus presence: without status migrainosus Intractability: not intractable Qualified Code(s): G43.009 - Migraine without aura, not intractable, without status migrainosus - Subjective Interval history: Complains still of severe abdominal pain 7/10 slowly improving, has nausea, no dysuria, no vomiting, no CP or SOB, no fever - Constitutional Vitals: Temp Pulse Resp BP Pulse Ox 98.2 F 74 14 115/73 94 09/04/16 06:30 09/04/16 06:30 09/04/16 08:11 09/04/16 08:11 09/04/16 08:11 General appearance: Present: cooperative, mild distress, A&O X 3, morbidly obese , pleasant, answers questions appropriately - Head Head exam: Present: atraumatic, normocephalic - Eye Eye exam: Present: PERRL, conjuntiva pink, sclera anicteric Pupils: Present: PERRL - Neck Neck exam general surgery: Present: supple, trachea midline. Absent: lymphadenopathy - Respiratory Respiratory exam: Present: CTAB. Absent: accessory muscle use, rales, rhonchi, wheezes - Cardiovascular Cardiovascular exam: Present: RRR, +S1, +S2. Absent: diastolic murmur, gallop, rubs, systolic murmur - GI/Abdominal GI/Abdominal exam: Present: normal bowel sounds, soft, tenderness (diffuse), no peritoneal signs. Absent: distended - Extremities Exam Extremities exam: Present: warm, radial pulses palpable and symetrical. Absent : calf tenderness, cyanotic, pedal edema - Neurological Exam Neurological exam: Present: CN II-XII intact, oriented X3, no focal deficits. Absent: pronater drift, facial droop, speech deficit - Skin Skin exam: Present: dry, intact Internal Medicine: Result - Labs CBC & Chem 7: 09/03/16 03:05 09/03/16 03:05 - VTE Documentation of Mechanical Device: Graduated compression elastic hosiery Consult Discharge Plan - Plan Referrals: Roxie Wolf CNP [Advanced Practice Nurse] - 09/08/16 2:30 pm Jasiel Cox DO [Primary Care Provider] -
[2016-09-05] MEDS: *HR* HYDROmorphone (PF) 1 MG/ML SYRINGE IVP PRN ×7 (03:15→22:26)
[2016-09-05] MEDS: Ondansetron 4 MG/2 ML VIAL IVP PRN ×4 (03:15→22:27)
[2016-09-05] MEDS: Pantoprazole 40 MG VIAL IVP SCH ×2 (06:09→18:11)
[2016-09-05] MEDS: *HR* Enoxaparin 40 MG/0.4 ML SYRINGE SQ SCH (06:10)
[2016-09-05] MEDS: *HR* Promethazine 25 MG/ML VIAL IVP PRN ×3 (06:10→18:56)
[2016-09-05] MEDS: D10% in Water 500 ML IVC SCH ×4 (06:22→21:13)
--- NOTE | 2016-09-05 07:42 | Internal Med Progress Note ---
Date of Encounter: 09/05/16 Time of Encounter: 07:39 - Assessment and plan (1) Acute intermittent porphyria Current Visit: Yes Status: Acute Assessment and plan: Patient has had acute intermittent porphyria since 7 years old, she has had multiple episodes of acute attacks over the course of her life. Current symptoms are similar to prior episodes, that usually last 1-2 weeks. She reports that triggers are usually an infection. she had sinusitis last week Has tried Hemin before, spoke with pharmacy and hemin was not able to be administered as the hospital does not have the medication and does not have the lab resources to monitor it, the option to transfer her to a different facility was given and the patient preferred to stay here, risks were explained . Continue pain medications with Dilaudid Q3Hr and Percocet 10/325 every 6 hours when necessary Nausea control 4 mg Zofran every 6 hours when necessary 12.5 mg Phenergan every 6 hours when necessary Continue D10% (2) Intractable nausea and vomiting Current Visit: Yes Status: Acute Assessment and plan: secondary to AIP. Qualifiers: Vomiting type: unspecified Qualified Code(s): R11.2 - Nausea with vomiting , unspecified (3) NAFLD (nonalcoholic fatty liver disease) Current Visit: No Status: Chronic (4) Obesity Current Visit: No Status: Acute Qualifiers: Obesity type: due to excess calories Obesity severity: unspecified obesity severity Qualified Code(s): E66.09 - Other obesity due to excess calories (5) Asthma Current Visit: Yes Status: Acute Assessment and plan: Not in exacerbation. Patient has history of asthma and has albuterol inhaler and Symbicort at home. Continue albuterol sulfate inhaler 1 puff every 6 hours when necessary Continue Symbicort 160/4.52 puffs twice a day Qualifiers: Asthma severity: unspecified severity Asthma complication type: uncomplicated Qualified Code(s): J45.909 - Unspecified asthma, uncomplicated (6) Migraines Current Visit: Yes Status: Acute Assessment and plan: Patient headaches under control currently. Patient has history of migraines and takes sumatriptan at home. Qualifiers: Migraine type: without aura Status migrainosus presence: without status migrainosus Intractability: not intractable Qualified Code(s): G43.009 - Migraine without aura, not intractable, without status migrainosus - Subjective Interval history: Still complaining of severe abdominal pain 6/10 slowly improving, has nausea, no dysuria, no vomiting, no CP or SOB, no fever - Constitutional Vitals: Temp Pulse Resp BP Pulse Ox 97.6 F 74 16 115/67 94 09/05/16 06:46 09/05/16 06:46 09/05/16 06:46 09/05/16 06:46 09/05/16 06:46 General appearance: Present: cooperative, mild distress, A&O X 3, morbidly obese , pleasant, answers questions appropriately - Head Head exam: Present: atraumatic, normocephalic - Eye Eye exam: Present: PERRL, conjuntiva pink, sclera anicteric Pupils: Present: PERRL - Neck Neck exam general surgery: Present: supple, trachea midline. Absent: lymphadenopathy - Respiratory Respiratory exam: Present: CTAB. Absent: accessory muscle use, rales, rhonchi, wheezes - Cardiovascular Cardiovascular exam: Present: RRR, +S1, +S2. Absent: diastolic murmur, gallop, rubs, systolic murmur - GI/Abdominal GI/Abdominal exam: Present: normal bowel sounds, soft, tenderness (diffuse mild tenderness mainly in the RUQ), no peritoneal signs. Absent: distended - Extremities Exam Extremities exam: Present: warm, radial pulses palpable and symetrical. Absent : calf tenderness, cyanotic, pedal edema - Neurological Exam Neurological exam: Present: CN II-XII intact, oriented X3, no focal deficits. Absent: pronater drift, facial droop, speech deficit - Skin Skin exam: Present: dry, intact Internal Medicine: Result - Labs CBC & Chem 7: 09/03/16 03:05 09/03/16 03:05 - VTE Documentation of Mechanical Device: Graduated compression elastic hosiery Consult Discharge Plan - Plan Referrals: Roxie Wolf CNP [Advanced Practice Nurse] - 09/08/16 2:30 pm Jasiel Cox DO [Primary Care Provider] -
[2016-09-05] MEDS: Metoprolol XL (24 HR) Succ 25 MG TAB.ER.24H PO SCH (09:45)
[2016-09-05] MEDS: Budesonide/Formoterol 160/4.5 MDI IH SCH ×2 (11:03→20:12)
[2016-09-05] MEDS: *HR* OxyCODONE/APAP 10/325 TABLET PO PRN (20:03)
[2016-09-06] MEDS: *HR* HYDROmorphone (PF) 1 MG/ML SYRINGE IVP PRN ×7 (01:33→20:48)
[2016-09-06] MEDS: *HR* Promethazine 25 MG/ML VIAL IVP PRN ×4 (01:33→20:48)
[2016-09-06] MEDS: D10% in Water 500 ML IVC SCH ×4 (02:21→22:55)
[2016-09-06 03:49] LABS: Hematocrit 34.9 % (35.3-44.9); Hemoglobin 11.3 g/dL (11.5-15.4); Mean Corpuscular HGB Conc 32.4 g/dL (31.6-35.5); Mean Corpuscular Hemoglobin 29.5 pg (28.0-33.3); Mean Corpuscular Volume 91.1 fL (83.0-100.0); Mean Platelet Volume 9.7 fL (9.4-12.4); Platelet Count 248 K/mcL (140-400); Red Blood Count 3.83 M/mcL (3.82-4.97); Red Cell Distribution Width 13.1 % (11.5-14.5)
[2016-09-06 04:05] LABS: Alanine Aminotransferase 44 Units/L (0-55); Albumin 3.4 g/dL (3.5-5.0); Alkaline Phosphatase 118 Units/L (38-126); Aspartate Amino Transferase 29 Units/L (5-34); BUN/Creatinine Ratio 12 (6-26); Bilirubin,Total 0.3 mg/dL (0.2-1.2); Blood Urea Nitrogen 10 mg/dL (7-20); Calcium 9.2 mg/dL (8.6-10.8); Carbon Dioxide 27 mEq/L (19-29); Chloride 104 mEq/L (98-109); Globulin 3.5 g/dL (2.4-3.5); Glucose 110 mg/dL (70-99); Osmolality,Calculated 290 (280-300); Potassium 3.9 mEq/L (3.5-4.5); Sodium 140 mEq/L (136-145); Total Protein 6.9 g/dL (6.0-8.3); eGFR For African Americans > 60 (> 60); eGFR For Non-African Americans > 60 (> 60)
[2016-09-06] MEDS: Ondansetron 4 MG/2 ML VIAL IVP PRN ×4 (04:40→23:59)
[2016-09-06] MEDS: *HR* Enoxaparin 40 MG/0.4 ML SYRINGE SQ SCH (06:09)
[2016-09-06] MEDS: Pantoprazole 40 MG VIAL IVP SCH ×2 (06:09→17:39)
[2016-09-06] MEDS: Metoprolol XL (24 HR) Succ 25 MG TAB.ER.24H PO SCH (08:31)
[2016-09-06] MEDS: Budesonide/Formoterol 160/4.5 MDI IH SCH ×2 (10:46→21:10)
--- NOTE | 2016-09-06 15:25 | Internal Med Progress Note ---
Date of Encounter: 09/06/16 Time of Encounter: 13:00 - Assessment and plan (1) Acute intermittent porphyria Current Visit: Yes Status: Acute Assessment and plan: Originally diagnosed at the age of 13, follows intermittently with hematology at [facility]. Reports 2-3 acute episodes per year, that improved with supportive therapy. Hemin cannot be administered at our facility due to lack of monitoring. Continue carbohydrate load with D10 fluids. We will discuss with hematology at [facility]. Patient clearly states that there is no curative therapy for porphyria and she refuses to be transferred to tertiary care center, she wants to continue being here along with when necessary IV Zofran and morphine. Continue supportive care. Encourage out of bed to chair and ambulation when pain is better controlled. (2) Abdominal pain Current Visit: Yes Status: Acute Qualifiers: Abdominal location: generalized Qualified Code(s): R10.84 - Generalized abdominal pain (3) NAFLD (nonalcoholic fatty liver disease) Current Visit: Yes Status: Chronic (4) Asthma Current Visit: Yes Status: Chronic Qualifiers: Asthma severity: unspecified severity Asthma complication type: uncomplicated Qualified Code(s): J45.909 - Unspecified asthma, uncomplicated - Subjective Interval history: Reports having had the worst night ever with persistent abdominal pain. Reports moderate to severe abdominal pain, diffuse, nonradiating associated with intermittent nausea. Patient's RN reports that patient always states her pain 7/10 with no improvement even with IV pain medications. - Constitutional Vitals: Temp Pulse Resp BP Pulse Ox 98.0 F 76 15 94/61 95 09/06/16 11:34 09/06/16 11:34 09/06/16 11:34 09/06/16 11:34 09/06/16 11:34 General appearance: Present: mild distress, A&O X 3, morbidly obese, pleasant, answers questions appropriately - Respiratory Respiratory exam: Present: decreased breath sounds (At bilateral bases), CTAB. Absent: accessory muscle use, rales, rhonchi, wheezes - Cardiovascular Cardiovascular exam: Present: RRR, +S1, +S2. Absent: diastolic murmur, gallop, rubs, systolic murmur - GI/Abdominal GI/Abdominal exam: Present: normal bowel sounds, soft (Nondistended, diffuse tenderness with no guarding or rigidity), no peritoneal signs. Absent: distended, tenderness - Extremities Exam Extremities exam: Present: warm, radial pulses palpable and symetrical. Absent : calf tenderness, cyanotic, pedal edema - Neurological Exam Neurological exam: Present: CN II-XII intact, oriented X3, no focal deficits. Absent: pronater drift, facial droop, speech deficit Internal Medicine: Result - Labs CBC & Chem 7: 09/06/16 03:40 09/06/16 03:40 Labs: Short CBC 09/06/16 Range/Units 03:40 WBC 5.9 (4.3-11.1) K/mcL Hgb 11.3 L (11.5-15.4) g/dL Hct 34.9 L (35.3-44.9) % Plt Count 248 (140-400) K/mcL BMP 09/06/16 03:40 Sodium 140 Potassium 3.9 Chloride 104 Carbon Dioxide 27 BUN 10 Creatinine 0.83 Glucose 110 H Calcium 9.2 Liver Function 09/06/16 Range/Units 03:40 Total Bilirubin 0.3 (0.2-1.2) mg/dL AST 29 (5-34) Units/L ALT 44 (0-55) Units/L Alkaline Phosphatase 118 (38-126) Units/L Albumin 3.4 L (3.5-5.0) g/dL - VTE Documentation of Mechanical Device: Graduated compression elastic hosiery Consult Discharge Plan - Plan Referrals: Roxie Wolf PRINCIPAL SCIENTIST [Advanced Practice Nurse] - 09/15/16 1:45 pm
[2016-09-07] MEDS: *HR* HYDROmorphone (PF) 1 MG/ML SYRINGE IVP PRN ×8 (03:14→22:11)
[2016-09-07] MEDS: *HR* Promethazine 25 MG/ML VIAL IVP PRN ×4 (03:15→22:11)
[2016-09-07] MEDS: D10% in Water 500 ML IVC SCH ×3 (05:00→19:02)
[2016-09-07] MEDS: Ondansetron 4 MG/2 ML VIAL IVP PRN ×3 (06:31→19:03)
[2016-09-07] MEDS: Pantoprazole 40 MG VIAL IVP SCH (06:31)
[2016-09-07] MEDS: *HR* Enoxaparin 40 MG/0.4 ML SYRINGE SQ SCH (06:37)
[2016-09-07] MEDS: Metoprolol XL (24 HR) Succ 25 MG TAB.ER.24H PO SCH (09:25)
[2016-09-07] MEDS: Budesonide/Formoterol 160/4.5 MDI IH SCH ×2 (10:09→22:43)
--- NOTE | 2016-09-07 13:32 | Internal Med Progress Note ---
Date of Encounter: 09/07/16 Time of Encounter: 09:30 - Assessment and plan (1) Acute intermittent porphyria Current Visit: Yes Status: Acute Assessment and plan: Originally diagnosed at the age of 13, follows intermittently with hematology at [facility]. Followed with [facility] at one time, recommended bone marrow transplant, she declined. Hemin cannot be administered at our facility due to lack of monitoring. Continue carbohydrate load with D10 fluids. Continue supportive care with when necessary IV Dilaudid and antiemetics. Patient's clinical status does not correlate with her use of precisely 3 hourly IV Dilaudid use, ? Malingering. Case discussed with , Hematology at [facility] who recommends switching patient to oral Dilaudid since this is hospital day 14 if malingering is suspected or to consider transferring her to tertiary care center for possible hemin administration. (2) Abdominal pain Current Visit: Yes Status: Acute Qualifiers: Abdominal location: generalized Qualified Code(s): R10.84 - Generalized abdominal pain (3) NAFLD (nonalcoholic fatty liver disease) Current Visit: Yes Status: Chronic (4) Asthma Current Visit: Yes Status: Chronic Assessment and plan: Not in exacerbation. Patient has history of asthma and has albuterol inhaler and Symbicort at home. Continue albuterol sulfate inhaler 1 puff every 6 hours when necessary Continue Symbicort 160/4.52 puffs twice a day Qualifiers: Asthma severity: unspecified severity Asthma complication type: uncomplicated Qualified Code(s): J45.909 - Unspecified asthma, uncomplicated - Subjective Interval history: Reports feeling better but persistent abdominal pain. Continues to require IV Dilaudid every 3 hours and IV Phenergan and Zofran every 6 hours for the last 24 hours. Not in distress. No nausea, emesis, diarrhea. Able to ambulate without assistance. - Constitutional Vitals: Temp Pulse Resp BP Pulse Ox 97.8 F 76 15 108/73 95 09/07/16 11:23 09/07/16 11:23 09/07/16 11:23 09/07/16 11:23 09/07/16 11:23 General appearance: Present: A&O X 3, morbidly obese, answers questions appropriately - Respiratory Respiratory exam: Present: CTAB. Absent: accessory muscle use, rales, rhonchi, wheezes - Cardiovascular Cardiovascular exam: Present: RRR, +S1, +S2. Absent: diastolic murmur, gallop, rubs, systolic murmur - GI/Abdominal GI/Abdominal exam: Present: normal bowel sounds, soft (Diffuse abdominal tenderness to deep palpation), no peritoneal signs. Absent: distended, tenderness Internal Medicine: Result - Labs CBC & Chem 7: 09/06/16 03:40 09/06/16 03:40 - VTE Documentation of Mechanical Device: Graduated compression elastic hosiery Consult Discharge Plan - Plan Referrals: Roxie Wolf BUILDING COORDINATOR [Advanced Practice Nurse] - 09/15/16 1:45 pm
[2016-09-08] MEDS: *HR* HYDROmorphone (PF) 1 MG/ML SYRINGE IVP PRN ×4 (01:23→10:46)
[2016-09-08] MEDS: Ondansetron 4 MG/2 ML VIAL IVP PRN ×2 (01:23→07:47)
[2016-09-08] MEDS: D10% in Water 500 ML IVC SCH ×2 (01:23→08:00)
[2016-09-08 03:56] LABS: Basophils % 0.4 %; Eosinophils # 0.1 K/mcL (0.0-0.6); Eosinophils % 1.7 %; Hematocrit 33.5 % (35.3-44.9); Hemoglobin 10.9 g/dL (11.5-15.4); Immature Granulocytes % 0.7 % (0-4); Lymphocytes # 1.5 K/mcL (0.6-4.6); Lymphocytes % 27.4 %; Mean Corpuscular HGB Conc 32.5 g/dL (31.6-35.5); Mean Corpuscular Hemoglobin 29.7 pg (28.0-33.3); Mean Corpuscular Volume 91.3 fL (83.0-100.0); Mean Platelet Volume 9.7 fL (9.4-12.4); Monocytes # 0.4 K/mcL (0.0-1.3); Monocytes % 7.6 %; Neutrophils # 3.4 K/mcL (1.6-8.9); Platelet Count 240 K/mcL (140-400); Red Blood Count 3.67 M/mcL (3.82-4.97); Red Cell Distribution Width 13.1 % (11.5-14.5); Segmented Neutrophils % 62.2 %
[2016-09-08 04:17] LABS: BUN/Creatinine Ratio 14 (6-26); Blood Urea Nitrogen 11 mg/dL (7-20); Calcium 8.9 mg/dL (8.6-10.8); Carbon Dioxide 26 mEq/L (19-29); Chloride 105 mEq/L (98-109); Glucose 113 mg/dL (70-99); Osmolality,Calculated 288 (280-300); Sodium 139 mEq/L (136-145); eGFR For African Americans > 60 (> 60); eGFR For Non-African Americans > 60 (> 60)
[2016-09-08] MEDS: *HR* Promethazine 25 MG/ML VIAL IVP PRN ×2 (04:38→10:46)
[2016-09-08] MEDS: *HR* Enoxaparin 40 MG/0.4 ML SYRINGE SQ SCH (07:47)
[2016-09-08] MEDS: Budesonide/Formoterol 160/4.5 MDI IH SCH (07:56)
[2016-09-08] MEDS: Metoprolol XL (24 HR) Succ 25 MG TAB.ER.24H PO SCH (07:57)
[2016-09-08 11:17] VITALS: BP 103/70
--- NOTE | 2016-09-08 12:11 | Discharge Summary ---
Date of Encounter: 09/08/16 Time of Encounter: 12:08 - Discharge Diagnosis (1) Acute intermittent porphyria Priority: Primary Status: Acute (2) Abdominal pain Priority: Primary Status: Acute Qualifiers: Abdominal location: generalized Qualified Code(s): R10.84 - Generalized abdominal pain (3) NAFLD (nonalcoholic fatty liver disease) Priority: Secondary Status: Chronic (4) Asthma Priority: Secondary Status: Chronic Qualifiers: Asthma severity: unspecified severity Asthma complication type: uncomplicated Qualified Code(s): J45.909 - Unspecified asthma, uncomplicated - Discharge Medications Home Medications: Amlodipine Besylate [Norvasc] 5 mg PO BID 10/14/14 [History] OxyCODONE/APAP 10/325 [Percocet 10/325] 1 tab PO Q6H PRN 10/14/14 [History] Pantoprazole Sodium [Protonix] 40 mg PO BID #60 granpkt.dr 10/18/14 [Rx] Promethazine [Phenergan] 25 mg PO Q6HR PRN 11/05/14 [History] SUMAtriptan succinate [Imitrex] 100 mg PO AD PRN 05/26/15 [History] Albuterol Sulfate [Ventolin Hfa] 1 - 2 puff IH Q6H PRN 06/12/16 [History] Budesonide/Formoterol 160/4.5 [Symbicort 160/4.5] 2 puff IH BID 06/12/16 [ History] Metoprolol XL (24 HR) Succ [Toprol Xl] 25 mg PO DAILY 06/12/16 [History] Allergies/Adverse Reactions: Allergies aspirin [ASA] Allergy (Verified 07/18/16 14:08) See Comments Barbiturates Allergy (Verified 07/18/16 14:08) Hives diphenhydramine [From Benadryl] Allergy (Verified 07/18/16 14:08) Abdominal Pain ketorolac [From Toradol] Allergy (Verified 07/18/16 14:08) See Comments blood disorder NSAIDS (Non-Steroidal Anti-Inflamma Allergy (Verified 07/18/16 14:08) See Comments blood disorder Penicillins Allergy (Verified 07/18/16 14:08) Swelling of Lip/Tongue/Throat Sulfa (Sulfonamide Antibiotics) Allergy (Verified 07/18/16 14:08) Hives morphine Adverse Reaction (Verified 07/18/16 14:08) Abdominal Pain Steroids Adverse Reaction (Uncoded 06/12/16 18:14) Abdominal Pain Date of admission: 08/26/16 16:22 Primary care physician: Dylon Jansen Discharging clinician: Krista Pelaez Anticipated date of discharge: 09/08/16 - Patient Status Disposition: Home, Self-Care Condition: Good Functional capacity at discharge: independent ambulation Overall status at discharge: patient is back to baseline - Discharge Instructions Follow Up With: Roxie Wolf, MANAGER OF MEDICAL [Advanced Practice Nurse] - 09/15/16 1:45 pm Additional Instructions: Advance diet and normal activity as tolerated. Resume home medications. - Diet and Activity Activity: resume usual activities as tolerated Diet: advance to your usual diet, low fat, low cholesterol, low salt diet Hospital course: Ms. Morris is a 41 year old female with history of intermittent porphyria was admitted with acute abdominal pain, which she reports as being similar to acute episodes of her intermittent porphyria. She was started on supportive care with IV hydration, carbohydrate load, when necessary narcotic and analgesics like IV Dilaudid. Hemin could not be administered at our facility due to unavailable monitoring. Patient refused being transferred to a tertiary care center for higher level of care since admission, even after discussing multiple times. I have seen the patient during the last 3 days of her admission and she was not noted to be in any acute distress however requested IV Dilaudid every 3 hours and refused oral pain medications. Case was discussed with on-call rfp writer at [facility], who recommended switching pain medications to oral form to see if she tolerates and transferring her to higher level of care for possible hemin administration. This was discussed with patient and she reports feeling much better today and tolerates oral pain medications. She is medically stable for discharge at this time with outpatient follow-up. - Time Spent with Patient Total time spent providing and/or coordinating discharge services: Greater than 30 minutes (45 min) - Constitutional Vitals: Temp Pulse Resp BP Pulse Ox 97.9 F 75 16 103/70 95 09/08/16 11:11 09/08/16 11:11 09/08/16 11:11 09/08/16 11:11 09/08/16 11:11 General appearance: Present: A&O X 3, morbidly obese, answers questions appropriately - Cardiovascular Cardiovascular exam: Present: RRR, +S1, +S2. Absent: diastolic murmur, gallop, rubs, systolic murmur - VTE Documentation of Mechanical Device: Graduated compression elastic hosiery
== END 2016-09-08 13:00 | disposition home or self-care (01) | DRG 642 ==
LOC: EMEROO 11:46 → 3NENU 11:46 → SUATTDRO 15:53 → 3NENU 17:26 → SUATTDRO 08-26 16:22 → 3ANU 08-29 16:54
PROVIDERS: ADMIT Internal Medicine; ATTEND Internal Medicine

== ENCOUNTER 2016-10-18 15:11 | Inpatient (IN) ==
[2016-10-18] MEDS ORDERED: 0.9 % Sodium Chloride 1,000 ML IVC ONE ×2 (15:27→20:10)
[2016-10-18] MEDS ORDERED: *HR* HYDROmorphone (PF) 1 MG/ML SYRINGE IVP ONE ×2 (15:28→21:45)
[2016-10-18] MEDS ORDERED: *HR* Promethazine 25 MG/ML VIAL IVP PRN (15:28)
--- NOTE | 2016-10-18 15:51 | Emergency Department Note ---
Disposition Clinical Impression: History of porphyria, Acute intermittent porphyria, Nausea Abdominal pain Qualifiers: Abdominal location: epigastric Qualified Code(s): R10.13 - Epigastric pain Disposition: Admitted As Inpatient Condition: Fair Referrals: Jasiel Cox DO [Primary Care Provider] - Time of Disposition: 19:20 Abdominal Pain HPI - General Stated Complaint: ABD Pain Time Seen by Provider: 10/18/16 15:15 Source: patient Nursing Notes Reviewed: Yes Vital Signs Reviewed: Yes - History of Present Illness HPI Narrative: Patient's 41-year-old female who presents to the ED by the POC's for abdominal pain 3 days. Patient states she had acute onset of abdominal pain and has a history of acute intermittent porphyria for which she states is the reason for her abdominal pain today. Patient states her pain is in her epigastric region sharp, constant, 8/10, patient has Percocet 10 325 at home for which she is prescribed by her PCP Dr. Ojeda as well as Phenergan for nausea. Patient states she has been admitted in the past for uncontrollable pain. Patient denies past medical history for pancreatitis. She denies alcohol, tobacco, illicit drug use. Patient has surgical history for appendectomy, cholecystectomy, bilateral oophorectomy The patient denies any recent sexual intercourse for the past 3 months. Pain Scale: 8 - Related Data Home Medications Medication Instructions Recorded Confirmed Amlodipine Besylate [Norvasc] 5 mg PO BID 10/14/14 09/15/16 OxyCODONE/APAP 10/325 [Percocet 1 tab PO Q6H PRN 10/14/14 09/15/16 10/325] Promethazine [Phenergan] 25 mg PO Q6HR PRN 11/05/14 09/15/16 SUMAtriptan succinate [Imitrex] 100 mg PO AD PRN 05/26/15 09/15/16 Budesonide/Formoterol 160/4.5 2 puff IH BID 06/12/16 09/15/16 [Symbicort 160/4.5] Metoprolol XL (24 HR) Succ [Toprol 25 mg PO DAILY 06/12/16 09/15/16 Xl] Ipratropium/Albuterol Neb [Duoneb] 3 ml IH Q6H PRN 10/18/16 10/18/16 Previous Rx's Medication Instructions Recorded Pantoprazole Sodium [Protonix] 40 mg PO BID #60 granpkt. 10/18/14 Allergies Allergy/AdvReac Type Severity Reaction Status Date / Time aspirin [ASA] Allergy See Verified 07/18/16 14:08 Comments Barbiturates Allergy Hives Verified 07/18/16 14:08 diphenhydramine Allergy Abdominal Verified 07/18/16 14:08 [From Benadryl] Pain ketorolac [From Toradol] Allergy See Verified 07/18/16 14:08 Comments NSAIDS (Non-Steroidal Allergy See Verified 07/18/16 14:08 Anti-Inflamma Comments Penicillins Allergy Swelling Verified 07/18/16 14:08 of Lip/Tongue/Throat Sulfa (Sulfonamide Allergy Hives Verified 07/18/16 14:08 Antibiotics) morphine AdvReac Abdominal Verified 07/18/16 14:08 Pain Steroids AdvReac Abdominal Uncoded 06/12/16 18:14 Pain Review of Systems: Patient denies fevers, chills, diarrhea, chest pain, shortness of breath, lightheadedness, dizziness. Patient admits to epigastric abdominal pain, nausea , vomiting, bilateral upper and lower extremity weakness. All systems ED: reviewed and negative except as stated. Review of Systems: As Per HPI Abdominal Pain PMH - Past Medical History Medical history: Reports: asthma, hypertension, other Female Surgical History: Reports: appendectomy, , cholecystectomy, other ELECTRICAL TRYOUT PERSON history: Reports: no ELECTRICAL TRYOUT PERSON history Psychiatric history: Reports: no psych history - Social History Smoking status: Never smoker Alcohol use: Reports: none Drug use: Reports: none Physical Exam Vital Signs Temperature 98.5 F 10/18/16 15:16 Pulse Rate 120 10/18/16 15:16 Respiratory Rate 16 10/18/16 15:16 Blood Pressure 159/99 10/18/16 15:16 O2 Sat by Pulse Oximetry 98 10/18/16 15:16 Temperature 98.5 F 10/18/16 15:16 Pulse Rate 120 10/18/16 15:16 Respiratory Rate 16 10/18/16 15:16 Blood Pressure 159/99 10/18/16 15:16 O2 Sat by Pulse Oximetry 98 10/18/16 15:16 Oxygen Delivery Oxygen Delivery Room Air -General Appearance: Patient is a 41-year-old female who is alert and oriented 3 and in no acute distress. Patient appears sad all most point of tears as she describes her condition. -Neurological exam: Cranial nerves II-12 intact, no focal deficits observed, strength equal 5/5 bilaterally in upper and lower extremities, cerebellar motion test negative. Negative loss of sensation - Head Head exam: atraumatic, normocephalic, normal inspection - Eye Eye exam: Present: normal appearance, PERRL, EOMI, negative for scleral icterus negative for conjunctival pallor - ENT ENT exam: normal exam, normal oropharynx, mucous membranes moist - Neck Neck exam: Present: normal inspection, full ROM, trachea midline, negative JVD - Chest Chest inspection: Present: Patient has bilateral equal rise and fall of chest wall. Non-tender to palpation. - Respiratory Respiratory exam: Clear to auscultation bilaterally without wheezes rales or rhonchi Cardiovascular Cardiovascular exam: Present: Fast rate - Abdominal Exam Abdominal exam: Present: soft, nondistended, tender to palpation across the upper right and left quadrants most of the tenderness reproduced in epigastric region. Bowel sounds normoactive throughout all 4 quadrants. Negative for hyper or hyperresonance. - Extremities Exam Extremities exam: Present: normal inspection, full ROM, patient has sweaty palms - Back Exam Back exam: Present: normal inspection, full ROM. Absent: tenderness, CVA tenderness (R), CVA tenderness (L), - Psychiatric Psychiatric exam: Present: normal affect, normal mood, pulses equal regular bilaterally upper and lower extremities - Skin Skin exam: Present: warm, dry, intact, normal color - General Limitations: no limitations General appearance: alert Course - Reevaluation(s) Reevaluation #1: Patient seen and examined, lipase ordered, IV normal saline 1 L, Phenergan 12.5 mg, 1 mg Dilaudid for pain Time: 15:29 Reevaluation #2: Patient has poor and right chest wall Time: 16:40 Reevaluation #3: still tachycardic mildly at 103 ordered ecg reexamination, lung sounds still clear no chest pain or shortness of breath no diaphoresis. 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 Time: 19:32 - Consultations Consultation #1: Dr. Waters of [facility] states that they will take her for transfer but they currently at low [place] and will have to wait until a bed opens up and currently recommends that we admit to our hospital here. Once the bed opens up they will let us now to facilitate transfer. They recommend ordering total urine porphyrias plasma total porphyruria to help him with the workup. Labs been ordered Time: 21:19 Consultation #2: Mir Colon the hospitalist has accepted patient for admission at 2010 hrs. Time: 22:11 Vital Signs Temperature 98.5 F 10/18/16 15:16 Pulse Rate 120 10/18/16 15:16 Respiratory Rate 16 10/18/16 15:16 Blood Pressure 159/99 10/18/16 15:16 O2 Sat by Pulse Oximetry 98 10/18/16 15:16 Temperature 98.5 F 10/18/16 15:16 Pulse Rate 120 10/18/16 15:16 Respiratory Rate 16 10/18/16 15:16 Blood Pressure 159/99 10/18/16 15:16 O2 Sat by Pulse Oximetry 98 10/18/16 15:16 Oxygen Delivery Oxygen Delivery Room Air Abdominal Pain - MDM Narrative Medical decision making narrative: Patient who presents with abdominal pain for which she says is attributed to acute intermittent porphyria. Patient shows recent admission to the hospital and discharged on September 15 for treatment for intractable pain. Patient thoughts concerning for possible pancreatitis. Patient is status post cholecystectomy, appendectomy, bilateral oophorectomy. Patient's lipase was checked and it was negative. Patient's vital signs show tachycardia EKG shows sinus tach no acute ST elevations or depressions and an leads. No QRS widening or QT prolongation and patient has not complained of any chest pain. Patient has not vomited but has persistent nausea and the pain. Patient has been dosed with multiple bouts of Dilaudid and fentanyl with no effect. Patient has been given 2 doses of Phenergan no effect. Patient's labs show no abnormalities at this time. This may be an another acute exacerbation of patient's acute intermittent porphyria and given patient was admitted and did not get much resolution of her symptoms 1 month ago is recommended that the patient be referred to [facility] for further treatment and evaluation. Patient agreed to this. [facility] was called and they agreed to take patient but they currently have no rooms available. They did recommend that we admit patient to our's Hospital here try to make comfortable and once a bed opens up day will let us know so we can facilitate transfer. Patient is agreeable to this course of action. I spoken to the hospitalist Dr. Mir Colon who has agreed to take patient for admission. Patient's labs that were recommended have been ordered. Patient has been dosed with Dilaudid again to try and make her comfortable. - Medical Records Medical records reviewed: Yes I reviewed the patient's medical records. Patient's records show a recent admission 1 month ago for acute intermittent porphyria - Lab Data Lab results reviewed: Yes I reviewed the patient's lab results. Lab results narrative: Short CBC 10/18/16 Range/Units 20:48 WBC 6.5 (4.3-11.1) K/mcL Hgb 12.9 (11.5-15.4) g/dL Hct 40.3 (35.3-44.9) % Plt Count 260 (140-400) K/mcL Neutrophils # 4.4 (1.6-8.9) K/mcL BMP 10/18/16 Range/Units 20:48 Sodium 139 (136-145) mEq/L Potassium 3.7 (3.5-4.5) mEq/L Chloride 108 (98-109) mEq/L Carbon Dioxide 22 (19-29) mEq/L BUN 10 (7-20) mg/dL Creatinine 0.68 (0.57-1.11) mg/dL Glucose 96 (70-99) mg/dL Calcium 9.8 (8.6-10.8) mg/dL Urine 10/18/16 Range/Units 16:17 Urine Color Yellow (Yellow) Urine Clarity Slightly Hazy (Clear) Urine pH 5.5 (5.0-8.0) pH Units Ur Specific [place] 1.017 (1.010-1.025) Urine Protein Negative (Neg-Trace) mg/dL Urine Glucose (UA) Normal (Normal) mg/dL Lab Results 10/18/16 10/18/16 Range/Units 16:17 17:47 Lipase < 10 (8-78) Units/L Urine Color Yellow (Yellow) Urine Clarity Slightly Hazy (Clear) Urine pH 5.5 (5.0-8.0) pH Units Ur Specific [place] 1.017 (1.010-1.025) Urine Protein Negative (Neg-Trace) mg/dL Urine Glucose (UA) Normal (Normal) mg/dL Urine Ketones Negative (Negative) mg/dL Urine Blood Negative (Negative) Urine Nitrite Negative (Negative) Urine Bilirubin Negative (Negative) Urine Urobilinogen Normal (Normal) mg/dL Ur Leukocyte Esterase Moderate H (Negative) Urine Microscopic RBC 3-5 H (0-3) per hpf Urine Microscopic WBC 5-15 H (0-3) per hpf Ur Squamous Epith Cells Many H (None-Few) per lpf Urine Bacteria None Seen (None-Few) per hpf Hyaline Casts None Seen (None-Few) per lpf Ur Culture Indicated? YES A (NO) - EKG Data EKG attestation: Yes I reviewed and interpreted this EKG. EKG results narrative: EKG dated 10/18/2016 and 1934 hrs. since tachycardia with inverted T waves in V1 and V2 no acute ST elevations or depressions in any leads.
[2016-10-18 16:29] LABS: Bilirubin,Urine Negative (Negative); Blood,Urine Negative (Negative); Color,Urine Yellow (Yellow); Glucose,Urine (UA) Normal (Normal); Ketones,Urine Negative (Negative); Leukocyte Esterase,Urine Moderate (Negative); Nitrite,Urine Negative (Negative); PH,Urine 5.5 pH Units (5.0-8.0); Protein,Urine Negative (Neg-Trace); Specific Gravity,Urine 1.017 (1.010-1.025); Urobilinogen,Urine Normal (Normal)
[2016-10-18 16:30] LABS: Bacteria,Urine None Seen per hpf (None-Few); Hyaline Casts,Urine None Seen per lpf (None-Few); Squamous Epithelial Cell,Urine Many per lpf (None-Few)
[2016-10-18 16:31] LABS: Clarity,Urine Slightly Hazy (Clear)
[2016-10-18] MEDS ORDERED: *HR* Promethazine 25 MG/ML VIAL IVP ONE (18:55)
[2016-10-18] MEDS ORDERED: *HR* HYDROcodone/Acet 10/325 mg TABLET PO ONE (19:02)
[2016-10-18] MEDS ORDERED: *HR* FentaNYL (PF) 100 MCG/2 ML VIAL IVP ONE (20:09)
[2016-10-18 20:57] LABS: Basophils % 0.5 %; Eosinophils # 0.1 K/mcL (0.0-0.6); Eosinophils % 1.1 %; Hematocrit 40.3 % (35.3-44.9); Hemoglobin 12.9 g/dL (11.5-15.4); Immature Granulocytes % 0.3 % (0-4); Immature Platelets 2.3 % (1.1-6.1); Lymphocytes # 1.6 K/mcL (0.6-4.6); Lymphocytes % 24.8 %; Mean Corpuscular Hemoglobin 29.1 pg (28.0-33.3); Mean Corpuscular Volume 90.8 fL (83.0-100.0); Mean Platelet Volume 9.7 fL (9.4-12.4); Monocytes # 0.4 K/mcL (0.0-1.3); Monocytes % 5.8 %; Neutrophils # 4.4 K/mcL (1.6-8.9); Platelet Count 260 K/mcL (140-400); Red Blood Count 4.44 M/mcL (3.82-4.97); Red Cell Distribution Width 13.4 % (11.5-14.5); Segmented Neutrophils % 67.5 %
[2016-10-18 21:10] LABS: BUN/Creatinine Ratio 15 (6-26); Blood Urea Nitrogen 10 mg/dL (7-20); Calcium 9.8 mg/dL (8.6-10.8); Carbon Dioxide 22 mEq/L (19-29); Chloride 108 mEq/L (98-109); Glucose 96 mg/dL (70-99); Osmolality,Calculated 287 (280-300); Potassium 3.7 mEq/L (3.5-4.5); Sodium 139 mEq/L (136-145); eGFR For African Americans > 60 (> 60); eGFR For Non-African Americans > 60 (> 60)
--- NOTE | 2016-10-18 21:36 | Emergency Department Note ---
START Narrative - START START: I examined this patient and my medical decision-making was reviewed with the Resident Physician. I agree with the documented findings, disposition and treatment plan as described except to the extent set forth below. In summary 41 -year-old female with history of poor for a period now with porphyruria induced abdominal pain. Requiring multiple doses of medication. Ultimately we did proceed with transferring the patient to [facility] however due to logistical reasons [facility] they do not have beds available at this time. They do have her on a waiting list for a bed. We will proceed with admission to the hospital here for further evaluation pending transferring her to [facility]. They did recommend obtaining cerebral laboratory studies which we did order from the emergency department. Her pain has been difficult to control. Her exam is not peritoneal. Her blood work shows no acute findings. Plan to transfer after admission here to [facility] for further evaluation of abdominal pain in the setting of rare disease. She is followed at [facility]
[2016-10-18] MEDS ORDERED: *HR* HYDROcodone/Acet 5/325 mg TABLET PO PRN (22:59)
[2016-10-18] MEDS ORDERED: Acetaminophen 325 MG TABLET PO PRN (22:59)
[2016-10-18] MEDS ORDERED: Naloxone 0.4 MG/ML INJ IVP PRN (22:59)
--- NOTE | 2016-10-18 23:16 | Internal Med History&Physical ---
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 Diagnosed at age 13 at [facility]. There are no records of this. Has seen multiple Outpatient Receptionist at [facility] [place] and [facility], and GI at [facility] who have come to consensus as per EMR records that patient most likely does not have AIP. she has been admitted to hospital in the past 3-4 years multiple times (>30) with negative elevation in urine prophyrins. She has been requested to go to [facility] and [place] for genetic work up but has never followed up according to EMR. While getting genetic testing would help us definitively diagnose patient with AIP, she may also be considered having drug seeking behavior as noted in EMR by [facility] she has seen in the past. [facility] was called by ER for transfer however they did not have beds. Patient would benefit transfer as soon as possible to get genetic testing done. Urine prophyrins ordered. (3) Nausea & vomiting Current visit: Yes Status: Acute as stated above reports N/V starting today due to flareup of AIP multiple EGDs in past with no findings on phenergan at home plan: IV phenergan Qualifiers: Vomiting type: unspecified Vomiting Intractability: non-intractable Qualified Code(s): R11.2 - Nausea with vomiting, unspecified (4) DVT prophylaxis Current visit: Yes Status: Acute heparin SQ Internal Medicine - H&P: HPI Chief complaint: abdominal pain Admitted From: Home Plans for Post Hospital Care: Home History of present illness: Ms. Morris is a 41 year old female hx of SELF REPORTED acute intermittent porphyria cc of 10/10 sharp abdominal pain of 2 days, with N/V of bilious content. Pain located in epigastric region w/o radiation. Precribed perc 10-325 at home for self reported AIP by PCP which she states are not helping her. Multiple admission in the past 3 years for same reason and patient gets treated with IV dilauded, 5% dextrose and gets discharged the next day. She is calm in bed, no distress, awake alert and conversing well. Denies weight loss, hemoptysis, melena, hematochezia. Past Med Surg Social Fam HX - Past Medical History Medical history: asthma, hypertension, other Psychiatric history: no psych history - Past Surgical History Surgical History: appendectomy, , cholecystectomy, hysterectomy - Social History Smoking Status: Never smoker Smokeless Tobacco Status: No Alcohol use: none Drug use: none - Family History Father Adopted: No Living Status: Still Living Hx Family Cardiac Disorders: Yes (hld) Hx Family Respiratory Disorders: No Hx Family Cancer: No Hx Family GI Disorders: Yes (Ulcers) Hx Family Endocrine Disorder: Yes (kidney stones) Hx Family Neuromuscular Disorders: No Hx Family Neurologic Disorders: No Hx Family HEENT Disorders: No Hx Family Autoimmune Disorders: No Sister Living Status: Still Living Hx Family Cardiac Disorders: Yes (htn) Mother Adopted: No Family Member Ethnicity: Non- Living Status: Still Living Hx Family Cardiac Disorders: Yes (htn) Hx Family Respiratory Disorders: Yes (copd) Hx Family Cancer: No Hx Family GI Disorders: Yes (ulcers) Hx Family Endocrine Disorder: Yes (DM) Hx Family Neuromuscular Disorders: No Hx Family Neurologic Disorders: No Hx Family HEENT Disorders: No Hx Family Autoimmune Disorders: No Internal Medicine - H&P: Meds Amlodipine Besylate [Norvasc] 5 mg PO BID 10/14/14 [History] OxyCODONE/APAP 10/325 [Percocet 10/325] 1 tab PO Q6H PRN 10/14/14 [History] Pantoprazole Sodium [Protonix] 40 mg PO BID #60 10/18/14 [Rx] Promethazine [Phenergan] 25 mg PO HS PRN 11/05/14 [History] SUMAtriptan succinate [Imitrex] 100 mg PO DAILY PRN 05/26/15 [History] Budesonide/Formoterol 160/4.5 [Symbicort 160/4.5] 2 puff IH BID 06/12/16 [ History] Metoprolol XL (24 HR) Succ [Toprol Xl] 25 mg PO DAILY 06/12/16 [History] Ipratropium/Albuterol Neb [Duoneb] 3 ml IH Q6H PRN 10/18/16 [History] Allergies aspirin [ASA] Allergy (Verified 07/18/16 14:08) See Comments Barbiturates Allergy (Verified 07/18/16 14:08) Hives diphenhydramine [From Benadryl] Allergy (Verified 07/18/16 14:08) Abdominal Pain ketorolac [From Toradol] Allergy (Verified 07/18/16 14:08) See Comments blood disorder NSAIDS (Non-Steroidal Anti-Inflamma Allergy (Verified 07/18/16 14:08) See Comments blood disorder Penicillins Allergy (Verified 07/18/16 14:08) Swelling of Lip/Tongue/Throat Sulfa (Sulfonamide Antibiotics) Allergy (Verified 07/18/16 14:08) Hives morphine Adverse Reaction (Verified 07/18/16 14:08) Abdominal Pain Steroids Adverse Reaction (Uncoded 06/12/16 18:14) Abdominal Pain All Systems PM: A 10-system review of systems was performed and is negative for pertinent findings except as documented above in the HPI. Review of systems: Constitutional: Denies fever, chills HEENT: Denies headache, vision changes, neck pain, sore throat, rhinorrhea Heart: Denies chest pain palpitations Lungs: Denies shortness of breath cough Abdomen: Reports abdominal pain, nausea, vomiting Back: Denies back pain Kidney: Denies dysuria, hematuria Extremities: Denies swelling, pain Neuro: Denies numbness, and tingling - Constitutional Vitals: Temp Pulse Resp BP Pulse Ox 98.5 F 96 16 144/88 96 10/18/16 15:16 10/18/16 22:19 10/18/16 22:19 10/18/16 22:19 10/18/16 22:19 - Other Additional findings: General: Alert and oriented to place time and situation. Without distress HEENT: Head atraumatic, normocephalic, EOMI, PERRLA, neck nontender to palpation , absent Lymphadenopathy, Moist Mucous Membranes, Heart: Regular rate and rhythm with no murmur Lungs: Clear to auscultation bilaterally Abdomen: Soft tender in epigastric region, positive bowel sounds Extremities: Absent pedal edema, Neuro: Cranial nerves II through XII intact, sensation equal bilaterally, strength upper and lower extremity 5/5, alert oriented 3 Vascular: Pedal and radial pulses 2 out of 4 Internal Med - H&P Results - Labs CBC & Chem 7: 10/18/16 20:48 10/18/16 20:48 <Charis Colon - Last Filed: 10/19/16 01:27> Date of Encounter: 10/19/16 Internal Medicine - H&P: HPI History of present illness: Ms. Morris is a 41 year old female All Systems PM: A 10-system review of systems was performed and is negative for pertinent findings except as documented above in the HPI. - Constitutional Vitals: Temp Pulse Resp BP Pulse Ox 98.8 F 89 14 134/94 96 10/18/16 23:52 10/18/16 23:52 10/18/16 23:52 10/18/16 23:52 10/18/16 23:52 Internal Med - H&P Results - Labs CBC & Chem 7: 10/18/16 20:48 10/18/16 20:48 - Attending Attestation I examined this patient and my medical decision-making was reviewed with the Resident Physician. I agree with the documented findings, disposition and treatment plan as described except to the extent set forth below. Patient with abdominal pain. Hx of AIP. Discussed with ED doc who contacted [facility] where she had been treated. Ok for transfer but has no bed. Plan to keep patient here until bed at [facility] opens up Noted progressive abdominal symptoms over last few days with UGI and abdominal symptoms. Needing IV pain medications General - AAO x 3 Psych - Appropriate affect/speech. No agitation Eyes - LUCINA. Eye lids intact. No scleral icterus ENT - Oral mucosa pink, dentition intact. External ear clear/dry/intact. No thyromegaly Lymphatics - No cervical/inguinal lympadenopathy Neuro - No gross peripheral or central neuro deficits with intact CN 2-12 exam Heart - Sinus. RRR. S1 and S2 present. No added HS/murmurs appreciated. No elevated JVD appreciated. No calf swellings/erythema Lung - Adequate air entry b/l, No crackes/wheezes appreciated GI - epigastric , periumbilical pain. No guarding. No hepatosplenomegaly/ ascities. BS+ - No CVA/suprapubic tenderness or palpable bladder distension Skin - Intact. No rash/petechiae/ecchymosis. Warm extremities MSK - Joints with normal ROM. No joint swellings ROS 14 point review of systems reviewed as best as possible given presentation. Pertinent positive or negative as per HPI or otherwise reviewed as negative A/P Acute abdominal pain - hx AIP - will need specialized care. Basic AIP labs sent. Consult Hematology to eval. Possible overlay of acute on chronic abdominal pain syndrome. But given reported hx of AIP, will have hematology to eval to rule in or out. Needing IV pain med N/V,anorexia - unable to tolerated PO intake needing IVF DVT ppx
[2016-10-18] MEDS: *HR* HYDROmorphone (PF) 1 MG/ML SYRINGE IVP PRN (23:47)
[2016-10-18] MEDS: D5% in 0.9% NACL 1,000 ML IVC SCH (23:47)
[2016-10-18] MEDS: *HR* Promethazine 25 MG/ML VIAL IVP SCH (23:55)
[2016-10-19] MEDS: *HR* HYDROmorphone (PF) 1 MG/ML SYRINGE IVP PRN ×5 (03:58→21:33)
[2016-10-19] MEDS: *HR* Promethazine 25 MG/ML VIAL IVP SCH ×5 (03:59→21:33)
[2016-10-19] MEDS: *HR* Heparin 5,000 UNIT/ML VIAL SQ SCH ×3 (05:29→21:32)
[2016-10-19] MEDS: amLODIPine 5 MG TABLET PO SCH ×2 (08:46→21:34)
[2016-10-19] MEDS: D5% in 0.9% NACL 1,000 ML IVC SCH (09:55)
[2016-10-19] MEDS ORDERED: Ipratropium/Albuterol Neb 3 ML IH PRN (12:03)
--- NOTE | 2016-10-19 16:58 | Internal Med Progress Note ---
Date of Encounter: 10/19/16 Time of Encounter: 11:30 - Assessment and plan (1) Abdominal pain Current Visit: Yes Status: Acute Assessment and plan: Continues to have severe abdominal pain with some generalized abdominal tenderness. Will continue IV narcotic medications for now. Exhibits drug- seeking behavior including asking for increased dosage of Dilaudid along with Phenergan intravenously. Labs show a normal WBC and RBC counts with no metabolic abnormalities. Urinalysis shows normal urine color and negative for blood. Urine culture could not be done. If patient continues to have abdominal pain, we will obtain a CT scan of the abdomen and pelvis especially as she complains of continued nausea and vomiting. Qualifiers: Abdominal location: generalized Qualified Code(s): R10.84 - Generalized abdominal pain (2) Intractable nausea and vomiting Current Visit: Yes Status: Acute Assessment and plan: Continue supportive care with antiemetics. Qualifiers: Vomiting type: cyclical vomiting Qualified Code(s): G43.A1 - Cyclical vomiting, intractable (3) Acute intermittent porphyria Current Visit: Yes Status: Suspected Assessment and plan: Patient has had no clinical features suggestive of acute intermittent porphyria. Urine does not appear to be discolored. Reviewed labs from prior hospital stays and patient has always had negative urine porphyrins. Acute intermittent porphyria remains difficult to diagnose condition. Patient has been accepted at [facility] for transfer to obtain genetic testing and further testing for acute flareup. However, beds are not yet available for her and patient refuses to be transferred to regional Hospital in the [facility] system. As such we will continue managing her here while awaiting a bed for her. No indication for urgent treatment for acute intermittent porphyria as diagnosis is not clear and patient does not appear to be having any features suggestive of acute flareup besides abdominal pain . (4) DVT prophylaxis Current Visit: Yes Status: Acute - Subjective Interval history: Patient continues to have abdominal pain and requesting more narcotic medications. Patient has been advised that [facility] does not have any beds but they do have bedside other [facility] hospitals but patient wishes to go to the [facility]. Also complains of nausea and has been requesting Phenergan [id number]. - Constitutional Vitals: Temp Pulse Resp BP Pulse Ox 97.9 F 73 20 144/95 96 10/19/16 15:17 08/09/17 15:17 10/19/16 15:17 10/19/16 15:17 10/19/16 15:17 General appearance: Present: cooperative, A&O X 3, obese, answers questions appropriately - Neck Neck exam general surgery: Present: supple, trachea midline. Absent: lymphadenopathy - Respiratory Respiratory exam: Present: CTAB. Absent: accessory muscle use, rales, rhonchi, wheezes - Cardiovascular Cardiovascular exam: Present: RRR, +S1, +S2. Absent: diastolic murmur, gallop, rubs, systolic murmur - GI/Abdominal GI/Abdominal exam: Present: normal bowel sounds, soft, tenderness (Generalized) , no peritoneal signs. Absent: distended - Extremities Exam Extremities exam: Present: warm, radial pulses palpable and symmetrical. Absent : calf tenderness, cyanotic, pedal edema - Neurological Exam Neurological exam: Present: alert, oriented X3, no focal deficits. Absent: facial droop, speech deficit Internal Medicine: Result - Labs CBC & Chem 7: 10/18/16 20:48 10/18/16 20:48 Consult Discharge Plan - Plan
--- NOTE | 2016-10-19 20:26 | Electrocardiograph Report ---
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
[2016-10-19] MEDS: Budesonide/Formoterol 160/4.5 MDI IH SCH (21:08)
[2016-10-20] MEDS: *HR* Promethazine 25 MG/ML VIAL IVP SCH ×7 (01:28→23:20)
[2016-10-20] MEDS: *HR* HYDROmorphone (PF) 1 MG/ML SYRINGE IVP PRN ×5 (01:29→23:19)
[2016-10-20] MEDS: *HR* Heparin 5,000 UNIT/ML VIAL SQ SCH ×3 (06:05→23:20)
[2016-10-20] MEDS: amLODIPine 5 MG TABLET PO SCH ×2 (07:48→20:24)
[2016-10-20] MEDS: Budesonide/Formoterol 160/4.5 MDI IH SCH ×2 (10:44→21:33)
--- NOTE | 2016-10-20 15:37 | Internal Med Progress Note ---
Date of Encounter: 10/20/16 Time of Encounter: 10:25 - Assessment and plan (1) Abdominal pain Current Visit: Yes Status: Acute Assessment and plan: Patient continues to have abdominal pain but is tolerating diet well. Does not appear to have any signs or symptoms of an organic disorder. Lab work has been essentially normal. We will hold off on any further investigations at this time. Wean intravenous narcotic medications and transitioned to oral medications. Qualifiers: Abdominal location: generalized Qualified Code(s): R10.84 - Generalized abdominal pain (2) Intractable nausea and vomiting Current Visit: Yes Status: Acute Assessment and plan: Symptomatic care with antiemetics Qualifiers: Vomiting type: cyclical vomiting Qualified Code(s): G43.A1 - Cyclical vomiting, intractable (3) Acute intermittent porphyria Current Visit: Yes Status: Suspected Assessment and plan: Self-reported diagnosis. Does not appear to be an accurate diagnosis for this patient. She has been recommended evaluation during an acute flareup at [facility] and she has been accepted for transfer but we are currently waiting on bed availability for her. (4) DVT prophylaxis Current Visit: Yes Status: Acute Assessment and plan: Subcutaneous heparin - Subjective Interval history: Continues to have abdominal pain and nausea. Was able to tolerate breakfast this morning. Having bowel movements. No problems with passing urine. No hematuria or dysuria reported. - Constitutional Vitals: Temp Pulse Resp BP Pulse Ox 98.1 F 80 16 132/92 94 10/20/16 11:12 10/20/16 11:12 10/20/16 11:12 10/20/16 11:12 10/20/16 11:12 General appearance: Present: cooperative, mild distress, A&O X 3, obese, answers questions appropriately - Eye Eye exam: Present: EOMI, PERRL, conjuntiva pink, sclera anicteric - Respiratory Respiratory exam: Present: CTAB. Absent: accessory muscle use, rales, rhonchi, wheezes - Cardiovascular Cardiovascular exam: Present: RRR, +S1, +S2. Absent: diastolic murmur, gallop, rubs, systolic murmur - GI/Abdominal GI/Abdominal exam: Present: normal bowel sounds, soft, no peritoneal signs. Absent: distended, tenderness - Extremities Exam Extremities exam: Present: warm, radial pulses palpable and symmetrical. Absent : calf tenderness, cyanotic, pedal edema - Neurological Exam Neurological exam: Present: alert, oriented X3, no focal deficits. Absent: facial droop, speech deficit - Skin Skin exam: Present: dry, intact Internal Medicine: Result - Labs CBC & Chem 7: 10/18/16 20:48 10/18/16 20:48 Consult Discharge Plan - Plan Referrals: Jasiel Cox DO [Primary Care Provider] -
[2016-10-20] MEDS: *HR* OxyCODONE/APAP 10/325 TABLET PO PRN (20:25)
[2016-10-21] MEDS ORDERED: traZODone 50 MG TABLET PO PRN (01:02)
[2016-10-21] MEDS ORDERED: *HR* HYDROmorphone (PF) 1 MG/ML SYRINGE IVP ONE (02:09)
[2016-10-21] MEDS: *HR* OxyCODONE/APAP 10/325 TABLET PO PRN (03:49)
[2016-10-21] MEDS: *HR* Promethazine 25 MG/ML VIAL IVP SCH ×3 (03:50→11:53)
[2016-10-21] MEDS: *HR* HYDROmorphone (PF) 1 MG/ML SYRINGE IVP PRN ×2 (05:31→11:53)
[2016-10-21] MEDS: *HR* Heparin 5,000 UNIT/ML VIAL SQ SCH (05:31)
[2016-10-21] MEDS: Budesonide/Formoterol 160/4.5 MDI IH SCH (07:59)
[2016-10-21] MEDS: amLODIPine 5 MG TABLET PO SCH (08:57)
[2016-10-21] MEDS ORDERED: Metoprolol XL (24 HR) Succ 25 MG TAB.ER.24H PO SCH (09:00)
[2016-10-21 10:51] VITALS: BP 122/83
[2016-10-21] MEDS ORDERED: *HR* OxyCODONE/APAP 10/325 TABLET PO PRN (11:24)
--- NOTE | 2016-10-21 12:07 | Discharge Summary ---
Date of Encounter: 10/21/16 Time of Encounter: 10:00 - Discharge Diagnosis (1) Abdominal pain Priority: Primary Status: Acute Qualifiers: Abdominal location: generalized Qualified Code(s): R10.84 - Generalized abdominal pain (2) Intractable nausea and vomiting Priority: Secondary Status: Acute Qualifiers: Vomiting type: cyclical vomiting Qualified Code(s): G43.A1 - Cyclical vomiting, intractable (3) DVT prophylaxis Priority: Secondary Status: Acute - Discharge Medications Home Medications: Amlodipine Besylate [Norvasc] 5 mg PO BID 10/14/14 [History] OxyCODONE/APAP 10/325 [Percocet 10/325] 1 tab PO Q6H PRN 10/14/14 [History] Pantoprazole Sodium [Protonix] 40 mg PO BID #60 granpkt. 10/18/14 [Rx] Promethazine [Phenergan] 25 mg PO HS PRN 11/05/14 [History] SUMAtriptan succinate [Imitrex] 100 mg PO DAILY PRN 05/26/15 [History] Budesonide/Formoterol 160/4.5 [Symbicort 160/4.5] 2 puff IH BID 06/12/16 [ History] Metoprolol XL (24 HR) Succ [Toprol Xl] 25 mg PO DAILY 06/12/16 [History] Ipratropium/Albuterol Neb [Duoneb] 3 ml IH Q6H PRN 10/18/16 [History] Allergies/Adverse Reactions: Allergies aspirin [ASA] Allergy (Verified 07/18/16 14:08) See Comments Barbiturates Allergy (Verified 07/18/16 14:08) Hives diphenhydramine [From Benadryl] Allergy (Verified 07/18/16 14:08) Abdominal Pain ketorolac [From Toradol] Allergy (Verified 07/18/16 14:08) See Comments blood disorder NSAIDS (Non-Steroidal Anti-Inflamma Allergy (Verified 07/18/16 14:08) See Comments blood disorder Penicillins Allergy (Verified 07/18/16 14:08) Swelling of Lip/Tongue/Throat Sulfa (Sulfonamide Antibiotics) Allergy (Verified 07/18/16 14:08) Hives morphine Adverse Reaction (Verified 07/18/16 14:08) Abdominal Pain Steroids Adverse Reaction (Uncoded 06/12/16 18:14) Abdominal Pain Date of admission: 10/19/16 01:18 Primary care physician: Dylon Jansen Discharging clinician: Isiah Sargent Anticipated date of discharge: 10/21/16 - Patient Status Disposition: Home, Self-Care Condition: Good Functional capacity at discharge: independent ambulation Overall status at discharge: patient is progressing back to baseline - Discharge Instructions Follow Up With: Jasiel Cox DO [Primary Care Provider] - 10/31/16 12:00 pm () Forms: ED Satisfaction Letter, Work/School Release Additional Instructions: Please follow up with your specialist at [facility] for further evaluation and diagnosis of your chronic abdominal pain - Diet and Activity Activity: increase activity as tolerated Diet: low fat, low cholesterol, low salt diet Hospital course: Ms. Morris is a 41 year old female patient was hospitalized here after presenting with acute intractable abdominal pain. She carries a self-reported diagnosis of acute intermittent porphyria but treated based on review of records here, this diagnosis has not been proven. Even during this hospitalization, patient did not have any signs suggestive of porphyria disorders. Her urine and her most recent urine porphyrin levels were within normal limits. She had requested transfer to [facility] based on her prior visits there where she had been recommended to follow up with them and to be evaluated there during an acute episode. She was accepted for transfer but however beds were not available for her at the main hospital and patient refused to go to one of the regional hospitals within the same health system. As such, she was treated here with intravenous Dilaudid and Phenergan for symptom relief. Her pain did improve and she has been tolerating oral diet well since yesterday. Today she is stable for discharge and will follow up further with her primary care provider. She is also advised to follow up with her specialist at the wound clinic for further evaluation and to obtain a proper diagnosis and management plan for her chronic abdominal pain. - Time Spent with Patient Total time spent providing and/or coordinating discharge services: Less than 30 minutes (25 min) - Constitutional Vitals: Temp Pulse Resp BP Pulse Ox 98.1 F 79 18 122/83 95 10/21/16 10:49 10/21/16 10:49 10/21/16 10:49 10/21/16 10:49 10/21/16 10:49 General appearance: Present: cooperative, mild distress, A&O X 3, obese, answers questions appropriately - Respiratory Respiratory exam: Present: CTAB. Absent: accessory muscle use, rales, rhonchi, wheezes - Cardiovascular Cardiovascular exam: Present: RRR, +S1, +S2. Absent: diastolic murmur, gallop, rubs, systolic murmur - GI/Abdominal GI/Abdominal exam: Present: normal bowel sounds, soft, no peritoneal signs. Absent: distended, tenderness
[2016-10-22 12:49] LABS: Urine Collection Duration RANDOM hr; Urine Collection Volume RANDOM mL
== END 2016-10-21 14:35 | disposition home or self-care (01) | DRG 392 ==
LOC: EMEROO 15:11 → 3ANU 15:11
PROVIDERS: ADMIT Internal Medicine Hematology & Oncology; ATTEND Internal Medicine

== ENCOUNTER 2017-06-14 09:53 | Observation (INO) ==
[2017-06-14] MEDS ORDERED: *HR* FentaNYL (PF) 100 MCG/2 ML VIAL IVP ONE ×3 (10:12→11:46)
--- NOTE | 2017-06-14 10:20 | Emergency Department Note ---
Disposition Clinical Impression: Chest pain Qualifiers: Chest pain type: precordial pain Qualified Code(s): R07.2 - Precordial pain Disposition: Admitted As Inpatient Chest Pain HPI - General Chief Complaint: ED Chest Pain Stated Complaint: CP Time Seen by Provider: 06/14/17 09:57 Source: patient Limitations: no limitations Vital Signs Reviewed: Yes Nursing Notes Reviewed: Yes - History of Present Illness HPI Narrative: 42 year old female with history of hypertension, esophageal ulcer (3 years ago) , heart catheter (no positive finding) presents with chest pain. Pt stated it suddenly happened two hours ago. It was sharp and tightness on left and middle of chest. It radiated to back and left upper arm. Associate with diaphoresis, shortness of breath. No chill and fever. No nausea and vomiting. Pt took one tab of Protonix without improvement. Family history of heart disease(father from [place] in 42 year old, mother has CHF and stroke, etc.). Pt complaint: chest pain Onset (ago): hour(s) (2) Duration: constant Onset: during rest Pain Location: substernal, left chest Severity: severe Severity scale (1-10): 7 Quality: tightness, sharp Pain Radiation: RUE, back Improves with: nothing - Related Data Home Medications Medication Instructions Recorded Confirmed Amlodipine Besylate [Norvasc] 5 mg PO BID 10/14/14 06/14/17 OxyCODONE/APAP 10/325 [Percocet 1 tab PO Q6H PRN 10/14/14 06/14/17 10/325] Budesonide/Formoterol 160/4.5 2 puff IH BID 06/12/16 06/14/17 [Symbicort 160/4.5] Ipratropium/Albuterol Neb [Duoneb] 3 ml IH Q6H PRN 10/18/16 06/14/17 Cyclobenzaprine [Flexeril] 10 mg PO HS 06/14/17 06/14/17 Promethazine [Phenergan] 25 mg PO Q6HR PRN 06/14/17 06/14/17 SUMAtriptan Succinate [Imitrex] 100 mg PO DAILY PRN 06/14/17 06/14/17 Previous Rx's Medication Instructions Recorded Pantoprazole Sodium [Protonix] 40 mg PO BID #60 granpkt. 10/18/14 Fluticasone Propionate Nasal 120 spray NS DAILY #1 bottle 05/23/17 [Flonase] Allergies Allergy/AdvReac Type Severity Reaction Status Date / Time aspirin [ASA] Allergy See Verified 06/14/17 09:56 Comments Barbiturates Allergy Hives Verified 06/14/17 09:56 Penicillins Allergy Swelling Verified 06/14/17 09:56 of Lip/Tongue/Throat Sulfa (Sulfonamide Allergy Hives Verified 06/14/17 09:56 Antibiotics) diphenhydramine AdvReac Abdominal Verified 06/14/17 13:10 [From Benadryl] Pain ketorolac [From Toradol] AdvReac See Verified 06/14/17 13:10 Comments morphine AdvReac Abdominal Verified 06/14/17 09:56 Pain NSAIDS (Non-Steroidal AdvReac See Verified 06/14/17 13:10 Anti-Inflamma Comments Steroids AdvReac Abdominal Uncoded 05/11/17 13:10 Pain Constitutional: Denies: fever, chills, weakness, weight change Eyes: Denies: eye pain, eye discharge, vision change ENT ED: Denies: ear pain, throat pain, dental pain Cardiovascular: Reports: chest pain. Denies: palpitations, dyspnea on exertion Respiratory: Denies: cough, dyspnea, wheezes Gastrointestinal: Denies: abdominal pain, nausea, vomiting Genitourinary: Denies: urgency, dysuria, frequency, hematuria Musculoskeletal: Denies: back pain, neck pain, joint swelling Integumentary: Denies: rash, abrasion, lesions Neurological: Denies: headache, weakness, numbness Psychiatric: Denies: anxiety, depression Endocrine: Denies: fatigue, heat or cold intolerance Hematological/Lymphatic: Denies: easy bleeding, easy bruising Allergic/Immunologic: Denies: facial swelling, urticaria Chest Pain PMH - Past Medical History Medical history: Reports: asthma, hypertension Surgical history: Reports: cholecystectomy, , appendectomy Psychiatric history: Reports: no psych history 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 Absent: scleral icterus, conjunctival injection - ENT ENT exam: normal exam - Neck Neck exam: Present: normal inspection, full ROM, trachea midline. Absent: tenderness - Chest Chest inspection: Present: normal inspection, symmetric chest wall rise. Absent : tenderness - Respiratory Respiratory exam: Present: normal lung sounds bilaterally. Absent: respiratory distress, wheezes - Cardiovascular Cardiovascular exam: Present: regular rate, normal rhythm - Abdominal Exam Abdominal exam: Present: soft, tenderness (epigastric, LUQ and RUQ tender ) - Extremities Exam Extremities exam: Present: normal inspection, full ROM. Absent: tenderness - Back Exam Back exam: Present: normal inspection, full ROM. Absent: tenderness - Neurological Exam Neurological exam: Present: alert, oriented X3 - Psychiatric Psychiatric exam: Present: normal affect, normal mood. Absent: depressed - Skin Skin exam: Present: warm, intact Course Vital Signs Temperature 97.5 F L 06/14/17 09:54 Pulse Rate 122 06/14/17 09:54 Respiratory Rate 20 06/14/17 09:54 Blood Pressure 128/95 06/14/17 09:54 O2 Sat by Pulse Oximetry 98 06/14/17 09:54 Temperature 98.3 F 06/15/17 15:28 Pulse Rate 84 06/15/17 15:28 Respiratory Rate 16 06/15/17 15:28 Blood Pressure 108/72 06/15/17 15:28 O2 Sat by Pulse Oximetry 96 06/15/17 15:28 Oxygen Delivery Oxygen Delivery Nasal Cannula Chest Pain - [facility] Narrative Medical decision making narrative: 42 year old female presents with acute chest pain since this morning. It was tightness of chest and located in middle and left side chest. radiate to right side shoulder and back. Associate with diaphoresis and shortness of breath. No nausea/vomiting this time. History of Easophargeal ulcer, pt took once dose of Pantoprazole without improvement. Physical exam: epigastric, LUQ and RUQ tender , benign lungs and heart exam. Multiple family history of heart disease, stroke. personal history of hypertension. Heart score 4. Pt reported some improve of pain after second dose of pain medication and Nitrostat. Discussed with Dr. Shahid, agrees to admit pt for ACS rule out. 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 Result diagrams: 06/15/17 03:40 06/15/17 03:40 Lab Results 06/14/17 06/14/17 06/14/17 Range/Units 10:54 10:54 10:54 WBC 6.8 (4.3-11.1) K/mcL RBC 4.49 (3.82-4.97) M/mcL Hgb 13.4 (11.5-15.4) g/dL Hct 40.3 (35.3-44.9) % MCV 89.8 (83.0-100.0) fL MCH 29.8 (28.0-33.3) pg MCHC 33.3 (31.6-35.5) g/dL RDW 13.4 (11.5-14.5) % Plt Count 254 (140-400) K/mcL MPV 9.9 (9.4-12.4) fL Immature Gran % 0.1 (0-4) % Seg Neutrophils % 69.7 % Lymphocytes % 22.8 % Monocytes % 5.9 % Eosinophils % 1.2 % Basophils % 0.3 % Neutrophils # 4.7 (1.6-8.9) K/mcL Lymphocytes # 1.6 (0.6-4.6) K/mcL Monocytes # 0.4 (0.0-1.3) K/mcL Eosinophils # 0.1 (0.0-0.6) K/mcL Basophils # 0.0 (0.0-0.2) K/mcL D-Dimer 253 (0-500) ng/mLFEU Sodium 140 (136-145) mEq/L Potassium 3.6 (3.5-5.1) mEq/L Chloride 107 (98-107) mEq/L Carbon Dioxide 23 (23-29) mEq/L BUN 11 (6-20) mg/dL Creatinine 0.76 (0.60-1.20) mg/dL Est GFR ( Amer) > 60 (> 60) Est GFR (Non-Af Amer) > 60 (> 60) BUN/Creatinine Ratio 14 (6-26) Glucose 116 H (70-105) mg/dL Calculated Osmolality 290 (280-300) Calcium 9.5 (8.6-10.3) mg/dL Total Bilirubin 0.4 (0.3-1.0) mg/dL AST 123 H (13-39) Units/L ALT 84 H (7-52) Units/L Alkaline Phosphatase 97 (34-104) Units/L Troponin I < 0.03 (< 0.04) ng/mL Serum Total Protein 7.5 (6.4-8.9) g/dL Albumin 4.3 (3.5-5.7) g/dL Globulin 3.2 (2.4-3.5) g/dL Albumin/Globulin Ratio 1.3 (1.1-2.2) Lipase 6 L (11-82) Units/L 06/14/17 Range/Units 14:20 WBC (4.3-11.1) K/mcL RBC (3.82-4.97) M/mcL Hgb (11.5-15.4) g/dL Hct (35.3-44.9) % MCV (83.0-100.0) fL MCH (28.0-33.3) pg MCHC (31.6-35.5) g/dL RDW (11.5-14.5) % Plt Count (140-400) K/mcL MPV (9.4-12.4) fL Immature Gran % (0-4) % Seg Neutrophils % % Lymphocytes % % Monocytes % % Eosinophils % % Basophils % % Neutrophils # (1.6-8.9) K/mcL Lymphocytes # (0.6-4.6) K/mcL Monocytes # (0.0-1.3) K/mcL Eosinophils # (0.0-0.6) K/mcL Basophils # (0.0-0.2) K/mcL D-Dimer (0-500) ng/mLFEU Sodium (136-145) mEq/L Potassium (3.5-5.1) mEq/L Chloride (98-107) mEq/L Carbon Dioxide (23-29) mEq/L BUN (6-20) mg/dL Creatinine (0.60-1.20) mg/dL Est GFR ( Amer) (> 60) Est GFR (Non-Af Amer) (> 60) BUN/Creatinine Ratio (6-26) Glucose (70-105) mg/dL Calculated Osmolality (280-300) Calcium (8.6-10.3) mg/dL Total Bilirubin (0.3-1.0) mg/dL AST (13-39) Units/L ALT (7-52) Units/L Alkaline Phosphatase (34-104) Units/L Troponin I < 0.03 (< 0.04) ng/mL Serum Total Protein (6.4-8.9) g/dL Albumin (3.5-5.7) g/dL Globulin (2.4-3.5) g/dL Albumin/Globulin Ratio (1.1-2.2) Lipase (11-82) Units/L - Radiology Data Radiology results reviewed: Yes I reviewed the patient's radiology results.
[2017-06-14 11:22] LABS: Basophils % 0.3 %; Eosinophils # 0.1 K/mcL (0.0-0.6); Eosinophils % 1.2 %; Hematocrit 40.3 % (35.3-44.9); Hemoglobin 13.4 g/dL (11.5-15.4); Immature Granulocytes % 0.1 % (0-4); Lymphocytes # 1.6 K/mcL (0.6-4.6); Lymphocytes % 22.8 %; Mean Corpuscular HGB Conc 33.3 g/dL (31.6-35.5); Mean Corpuscular Hemoglobin 29.8 pg (28.0-33.3); Mean Corpuscular Volume 89.8 fL (83.0-100.0); Mean Platelet Volume 9.9 fL (9.4-12.4); Monocytes # 0.4 K/mcL (0.0-1.3); Monocytes % 5.9 %; Neutrophils # 4.7 K/mcL (1.6-8.9); Platelet Count 254 K/mcL (140-400); Red Blood Count 4.49 M/mcL (3.82-4.97); Red Cell Distribution Width 13.4 % (11.5-14.5); Segmented Neutrophils % 69.7 %
[2017-06-14 11:42] LABS: Troponin I < 0.03 ng/mL (< 0.04)
[2017-06-14 11:44] LABS: Alanine Aminotransferase 84 Units/L (7-52); Albumin 4.3 g/dL (3.5-5.7); Albumin/Globulin Ratio 1.3 (1.1-2.2); Alkaline Phosphatase 97 Units/L (34-104); Aspartate Amino Transferase 123 Units/L (13-39); BUN/Creatinine Ratio 14 (6-26); Bilirubin,Total 0.4 mg/dL (0.3-1.0); Blood Urea Nitrogen 11 mg/dL (6-20); Calcium 9.5 mg/dL (8.6-10.3); Carbon Dioxide 23 mEq/L (23-29); Chloride 107 mEq/L (98-107); Globulin 3.2 g/dL (2.4-3.5); Glucose 116 mg/dL (70-105); Lipase 6 Units/L (11-82); Osmolality,Calculated 290 (280-300); Potassium 3.6 mEq/L (3.5-5.1); Sodium 140 mEq/L (136-145); Total Protein 7.5 g/dL (6.4-8.9); eGFR For African Americans > 60 (> 60); eGFR For Non-African Americans > 60 (> 60)
[2017-06-14] MEDS ORDERED: Pantoprazole 40 MG VIAL IVP ONE (11:52)
[2017-06-14] MEDS ORDERED: Ondansetron 4 MG/2 ML VIAL IVP ONE (11:52)
--- NOTE | 2017-06-14 12:01 | Emergency Department Note ---
START Narrative - START START: I examined this patient and my medical decision-making was reviewed with the Resident Physician. I agree with the documented findings, disposition and treatment plan as described except to the extent set forth below. 42-year-old female presents emergency room for chest pain. Started around 7:30 AM today. She states she had a previous stress test done 2 years ago that was unremarkable as well as a heart catheterization. They did not have to put any Arjun. She describes this as a tight chest pressure in the midsternal region. She was nondiagnostic. We will give her some nitroglycerin. Troponin negative. We will do a nitroglycerin challenge first. Possible admission for observation and ACS rule out.
[2017-06-14] MEDS: Nitroglycerin 0.4 MG TAB.SUBL SL PRN ×3 (12:14→12:34)
[2017-06-14] MEDS ORDERED: Nitroglycerin 1 INCH/GM PACKET TP ONE (13:58)
--- NOTE | 2017-06-14 14:22 | Internal Med History&Physical ---
Date of Encounter: 06/14/17 Time of Encounter: 14:19 Internal Medicine - H&P: HPI Admitted From: Emergency Dept Plans for Post Hospital Care: Home History of present illness: Ms. Morris is a 42 year old woman who began having retrosternal/epigastric chest pain with radiation to her back earlier this am at aproximately 7:30 am. Her symptoms are associated with nausea but no vomiting. Now she is having upper abdominal pain. Her ECG shows ST with a q wave in lead AVF but no obvious ischemic changes. Her initial Troponin is wnl. She has a history of esophageal ulceration and takes Protonix but states these sympoms are different and Maalox and protonix have not relieved her symptoms. Her D. dimer is wnl and a previous cath in 2016 did not show significant occlusion. She's afebrile and hemodynamicalllThe hospitalists are asked to admit for ACS r/u. Past Med Surg Social Fam HX - Past Medical History Medical history: asthma, hypertension Psychiatric history: no psych history - Past Surgical History Surgical History: cholecystectomy, , appendectomy - Social History Smoking Status: Never smoker Smokeless Tobacco Status: No Alcohol use: none Drug use: none - Family History Father Adopted: No Living Status: Still Living Hx Family Cardiac Disorders: Yes (hld) Hx Family Respiratory Disorders: No Hx Family Cancer: No Hx Family GI Disorders: Yes (Ulcers) Hx Family Endocrine Disorder: Yes (kidney stones) Hx Family Neuromuscular Disorders: No Hx Family Neurologic Disorders: No Hx Family HEENT Disorders: No Hx Family Autoimmune Disorders: No Sister Living Status: Still Living Hx Family Cardiac Disorders: Yes (htn) Mother Adopted: No Family Member Ethnicity: Non- Living Status: Still Living Hx Family Cardiac Disorders: Yes (htn) Hx Family Respiratory Disorders: Yes (copd) Hx Family Cancer: No Hx Family GI Disorders: Yes (ulcers) Hx Family Endocrine Disorder: Yes (DM) Hx Family Neuromuscular Disorders: No Hx Family Neurologic Disorders: No Hx Family HEENT Disorders: No Hx Family Autoimmune Disorders: No Internal Medicine - H&P: Meds Amlodipine Besylate [Norvasc] 5 mg PO BID 10/14/14 [History] OxyCODONE/APAP 10/325 [Percocet 10/325] 1 tab PO Q6H PRN 10/14/14 [History] Pantoprazole Sodium [Protonix] 40 mg PO BID #60 granpkt.dr 10/18/14 [Rx] Budesonide/Formoterol 160/4.5 [Symbicort 160/4.5] 2 puff IH BID 06/12/16 [ History] Ipratropium/Albuterol Neb [Duoneb] 3 ml IH Q6H PRN 10/18/16 [History] Fluticasone Propionate Nasal [Flonase] 120 spray NS DAILY #1 bottle 05/23/17 [Rx ] Cyclobenzaprine [Flexeril] 10 mg PO HS 06/14/17 [History] Promethazine [Phenergan] 25 mg PO Q6HR PRN 06/14/17 [History] SUMAtriptan Succinate [Imitrex] 100 mg PO DAILY PRN 06/14/17 [History] 3 Allergy/AdvReac Type Severity Reaction Status Date / Time aspirin [ASA] Allergy See Verified 06/14/17 09:56 Comments Barbiturates Allergy Hives Verified 06/14/17 09:56 Penicillins Allergy Swelling Verified 06/14/17 09:56 of Lip/Tongue/Throat Sulfa (Sulfonamide Allergy Hives Verified 06/14/17 09:56 Antibiotics) diphenhydramine AdvReac Abdominal Verified 06/14/17 13:10 [From Benadryl] Pain ketorolac [From Toradol] AdvReac See Verified 06/14/17 13:10 Comments morphine AdvReac Abdominal Verified 06/14/17 09:56 Pain NSAIDS (Non-Steroidal AdvReac See Verified 06/14/17 13:10 Anti-Inflamma Comments Steroids AdvReac Abdominal Uncoded 05/11/17 13:10 Pain All Systems PM: A 10-system review of systems was performed and is negative for pertinent findings except as documented above in the HPI. - Constitutional Constitutional: as per HPI, excessive sweating, fever(s) (ssss), no anorexia - EENT Eyes: no as per HPI, no diplopia, no discharge, no dry eye Ears: no decreased hearing, no ear discharge Nose, mouth and throat: no dry mouth, no mouth pain, no sore throat - Cardiovascular Cardiovascular ROS IM: chest pain, no palpitations, no paroxysmal nocturnal dyspnea - Gastrointestinal Gastrointestinal: no change in stool character, no coffee ground emesis, no excessive flatus - Genitourinary Genitourinary: no difficulty voiding, no genital lesions, no urinary urgency - Psychiatric Psychiatric: auditory hallucinations, change in appetite, difficulty concentrating, suicidal ideation - Endocrine Endocrine IM: cold intolerance, heat intolerance - Constitutional Vitals: Temp Pulse Resp BP Pulse Ox 97.5 F L 95 26 115/75 97 06/14/17 09:54 06/14/17 14:05 06/14/17 14:05 06/14/17 14:05 06/14/17 14:05 General appearance: Present: A&O X 3, pleasant - Head Head exam: Present: atraumatic, normocephalic - Eye Eye exam: Present: PERRL, conjuntiva pink, sclera anicteric Pupils: Present: PERRL - Neck Neck exam general surgery: Present: full ROM, supple, trachea midline. Absent: lymphadenopathy - Respiratory Respiratory exam: Present: CTAB. Absent: accessory muscle use, rales, rhonchi, wheezes - Cardiovascular Cardiovascular exam: Present: RRR, +S1, +S2. Absent: diastolic murmur, gallop, rubs, systolic murmur - GI/Abdominal GI/Abdominal exam: Present: normal bowel sounds, soft, no peritoneal signs. Absent: distended, tenderness - Extremities Exam Extremities exam: Present: normal inspection, tenderness, warm. Absent: calf tenderness, cyanotic, pedal edema - Neurological Exam Neurological exam: Present: CN II-XII intact, oriented X3, no focal deficits. Absent: pronater drift, facial droop, speech deficit - Skin Skin exam: Present: dry, intact Internal Med - H&P Results - Labs CBC & Chem 7: 06/14/17 10:54 06/14/17 10:54 Labs: Short CBC 06/14/17 Range/Units 10:54 WBC 6.8 (4.3-11.1) K/mcL Hgb 13.4 (11.5-15.4) g/dL Hct 40.3 (35.3-44.9) % Plt Count 254 (140-400) K/mcL Neutrophils # 4.7 (1.6-8.9) K/mcL BMP 06/14/17 10:54 Sodium 140 Potassium 3.6 Chloride 107 Carbon Dioxide 23 BUN 11 Creatinine 0.76 Glucose 116 H Calcium 9.5 Cardiac Enzymes 06/14/17 Range/Units 10:54 Troponin I < 0.03 (< 0.04) ng/mL Liver Function 06/14/17 Range/Units 10:54 Total Bilirubin 0.4 (0.3-1.0) mg/dL AST 123 H (13-39) Units/L ALT 84 H (7-52) Units/L Alkaline Phosphatase 97 (34-104) Units/L Albumin 4.3 (3.5-5.7) g/dL - Impressions ITS Impressions Chest X-Ray 06/14/17 10:09 IMPRESSION: No acute cardiopulmonary disease D/ / Mark Rouse MD / Mark Rouse MD Interpreting Provider: Mark Rouse MD - Assessment and plan (1) Chest pain Current Visit: Yes Status: Acute Assessment and plan: Continue trending Troponins Continue telemetry 'D-dimer wml Continue BB Allergic to NSAIDS Recent neg cath Exercise nuclear stress orderd Qualifiers: Chest pain type: precordial pain Qualified Code(s): R07.2 - Precordial pain (2) Acute intermittent hepatic porphyria Current Visit: No Status: Acute Assessment and plan: Continue IVFs Continue current pain mgt (3) Nausea Current Visit: No Status: Acute Assessment and plan: So far she has not had vomiting Continue Zofran and add PRN Phenewrgan IVFs (4) Esophageal ulceration Current Visit: Yes Status: Acute Qualifiers: Esophageal ulcer bleeding: without bleeding Qualified Code(s): K22.10 - Ulcer of esophagus without bleeding (5) Abdominal pain Current Visit: No Status: Resolved Assessment and plan: She states the pain is differnt Continue PPI and home pain meds Qualifiers: Abdominal location: epigastric Qualified Code(s): R10.13 - Epigastric pain - Time Spent With Patient Total time spent is greater than 50% in coordination of care (as documented) at patient's floor/unit and/or counseling patient: Greater than 35 minutes
[2017-06-14] MEDS ORDERED: *HR* OxyCODONE/APAP 5/325 TABLET PO ONE (14:36)
[2017-06-14] MEDS ORDERED: Ondansetron 4 MG/2 ML VIAL IVP PRN (14:56)
[2017-06-14] MEDS: Sucralfate 1 GM TABLET PO SCH ×2 (15:47→22:19)
[2017-06-14] MEDS ORDERED: Ipratropium/Albuterol Neb 3 ML IH PRN (16:00)
[2017-06-14] MEDS: 0.9 % Sodium Chloride 1,000 ML IVC SCH (16:31)
[2017-06-14] MEDS ORDERED: *HR* FentaNYL (PF) 100 MCG/2 ML VIAL IVP PRN (17:35)
[2017-06-14] MEDS: Budesonide/Formoterol 160/4.5 MDI IH SCH (21:13)
[2017-06-14] MEDS: *HR* OxyCODONE/APAP 10/325 TABLET PO PRN (22:19)
[2017-06-14] MEDS: amLODIPine 5 MG TABLET PO SCH (22:19)
[2017-06-15] MEDS: 0.9 % Sodium Chloride 1,000 ML IVC SCH ×3 (03:45→15:42)
[2017-06-15 03:54] LABS: Basophils % 0.5 %; Eosinophils # 0.1 K/mcL (0.0-0.6); Eosinophils % 1.5 %; Hematocrit 35.9 % (35.3-44.9); Hemoglobin 11.6 g/dL (11.5-15.4); Immature Granulocytes % 0.2 % (0-4); Immature Platelets 1.3 % (1.1-6.1); Lymphocytes # 1.5 K/mcL (0.6-4.6); Lymphocytes % 24.5 %; Mean Corpuscular HGB Conc 32.3 g/dL (31.6-35.5); Mean Corpuscular Hemoglobin 29.5 pg (28.0-33.3); Mean Corpuscular Volume 91.3 fL (83.0-100.0); Mean Platelet Volume 9.6 fL (9.4-12.4); Monocytes # 0.4 K/mcL (0.0-1.3); Monocytes % 5.7 %; Neutrophils # 4.1 K/mcL (1.6-8.9); Nucleated Red Blood Cells 0.5 /100 WBC (0); Platelet Count 228 K/mcL (140-400); Red Blood Count 3.93 M/mcL (3.82-4.97); Red Cell Distribution Width 13.4 % (11.5-14.5); Segmented Neutrophils % 67.6 %
[2017-06-15 03:59] LABS: INR 1.2; Prothrombin Time 13.1 Seconds (9.4-12.1)
[2017-06-15] MEDS: *HR* OxyCODONE/APAP 10/325 TABLET PO PRN ×3 (04:19→20:29)
[2017-06-15 04:38] LABS: Alanine Aminotransferase 77 Units/L (7-52); Albumin 3.9 g/dL (3.5-5.7); Albumin/Globulin Ratio 1.4 (1.1-2.2); Alkaline Phosphatase 82 Units/L (34-104); Aspartate Amino Transferase 107 Units/L (13-39); BUN/Creatinine Ratio 18 (6-26); Bilirubin,Total 0.5 mg/dL (0.3-1.0); Blood Urea Nitrogen 12 mg/dL (6-20); Calcium 8.7 mg/dL (8.6-10.3); Carbon Dioxide 24 mEq/L (23-29); Chloride 108 mEq/L (98-107); Globulin 2.7 g/dL (2.4-3.5); Glucose 92 mg/dL (70-105); Magnesium 2.2 mg/dL (1.6-2.6); Osmolality,Calculated 285 (280-300); Sodium 138 mEq/L (136-145); Total Protein 6.6 g/dL (6.4-8.9); eGFR For African Americans > 60 (> 60); eGFR For Non-African Americans > 60 (> 60)
[2017-06-15] MEDS ORDERED: Regadenoson 0.4 MG/5 ML SYRINGE IVP ONE (06:42)
[2017-06-15] MEDS: Budesonide/Formoterol 160/4.5 MDI IH SCH ×2 (07:49→20:47)
[2017-06-15] MEDS: Sucralfate 1 GM TABLET PO SCH ×4 (10:33→20:29)
[2017-06-15] MEDS: Fluticasone Propionate Nasal 50 MCG/SPRAY BOTTLE NS SCH (10:33)
[2017-06-15] MEDS: amLODIPine 5 MG TABLET PO SCH ×2 (10:34→20:29)
[2017-06-15] MEDS: *HR* Promethazine 25 MG/ML VIAL IVP PRN ×2 (10:35→19:00)
--- NOTE | 2017-06-15 18:25 | Internal Med Progress Note ---
Date of Encounter: 06/15/17 Time of Encounter: 18:24 - Assessment and plan (1) Abdominal pain Current Visit: No Status: Resolved Assessment and plan: She states the pain is different from her normal esophageal or gastric pain Requesting larger dose of fentanyl Continue PPI and home pain meds GI consult Qualifiers: Abdominal location: epigastric Qualified Code(s): R10.13 - Epigastric pain (2) Acute intermittent hepatic porphyria Current Visit: No Status: Acute Assessment and plan: Continue IVFs Increase fentanyl to 50 mics every 3 hours as opposed to 25 every 1 hour and continue her home Percocet dose in between (3) Nausea Current Visit: No Status: Acute Assessment and plan: One episode of emesis today Continue Zofran and PRN Phenewrgan IVFs (4) Chest pain Current Visit: Yes Status: Acute Assessment and plan: Troponins negative Continue telemetry 'D-dimer wml Continue BB Allergic to NSAIDS Recent neg cath Exercise nuclear stress in process Qualifiers: Chest pain type: precordial pain Qualified Code(s): R07.2 - Precordial pain (5) Esophageal ulceration Current Visit: Yes Status: Acute Assessment and plan: gi consulted Qualifiers: Esophageal ulcer bleeding: without bleeding Qualified Code(s): K22.10 - Ulcer of esophagus without bleeding - Time Spent With Patient Total time spent is greater than 50% in coordination of care (as documented) at patient's floor/unit and/or counseling patient: - Subjective Interval history: Patient is describing a crushing severe chest pain running down into her stomach. She states the only thing that relieves it is a bigger dose of fentanyl. She states her home Percocet is not touching the pain nor is the 25 mics of that now and she would like to have the dose that she had in the ER. She is also been the RCA did and had 1 emesis today. Part 1 of her stress test is completed she will have part to [facility]. I also consulted gastroenterology and told her they will be by to evaluate her for possible ulceration. She denies any shortness of breath, or reflux, lower abdominal pain, headache, fever , chills or diarrhea. She states she does not feel good and has not felt good for some time. - Constitutional Vitals: Temp Pulse Resp BP Pulse Ox 98.3 F 84 16 108/72 96 06/15/17 15:28 06/15/17 15:28 06/15/17 15:28 06/15/17 15:28 06/15/17 15:28 General appearance: Present: disheveled, A&O X 3, morbidly obese, pleasant, answers questions appropriately - Head Head exam: Present: atraumatic, normocephalic - Eye Eye exam: Present: PERRL, conjuntiva pink, sclera anicteric Pupils: Present: PERRL - Neck Neck exam general surgery: Present: supple, trachea midline. Absent: lymphadenopathy - Respiratory Respiratory exam: Present: CTAB. Absent: accessory muscle use, rales, rhonchi, wheezes - Cardiovascular Cardiovascular exam: Present: RRR, +S1, +S2. Absent: diastolic murmur, gallop, rubs, systolic murmur - GI/Abdominal GI/Abdominal exam: Present: normal bowel sounds, soft, no peritoneal signs. Absent: distended, guarding, tenderness Additional comments: Epigastric and mid upper abdominal pain - Extremities Exam Extremities exam: Present: warm, radial pulses palpable and symmetrical. Absent : calf tenderness, cyanotic, pedal edema - Neurological Exam Neurological exam: Present: alert, CN II-XII intact, oriented X3, no focal deficits. Absent: pronater drift, facial droop, speech deficit - Skin Skin exam: Present: dry, normal color, warm Additional comments: Port is intact to right chest wall Internal Medicine: Result - Labs CBC & Chem 7: 06/15/17 03:40 06/15/17 03:40 Labs: Short CBC 06/15/17 Range/Units 03:40 WBC 6.1 (4.3-11.1) K/mcL Hgb 11.6 D (11.5-15.4) g/dL Hct 35.9 (35.3-44.9) % Plt Count 228 (140-400) K/mcL Neutrophils # 4.1 (1.6-8.9) K/mcL BMP 06/15/17 03:40 Sodium 138 Potassium 4.0 Chloride 108 H Carbon Dioxide 24 BUN 12 Creatinine 0.68 Glucose 92 Calcium 8.7 Cardiac Enzymes 06/14/17 06/15/17 06/15/17 Range/Units 20:00 03:40 03:40 Troponin I < 0.03 < 0.03 Cancelled (< 0.04) ng/mL Liver Function 06/15/17 Range/Units 03:40 Total Bilirubin 0.5 (0.3-1.0) mg/dL AST 107 H (13-39) Units/L ALT 77 H (7-52) Units/L Alkaline Phosphatase 82 (34-104) Units/L Albumin 3.9 (3.5-5.7) g/dL - ABG Interpretation ABG results: PT/INR, D-dimer PT 13.1 Seconds (9.4-12.1) H 06/15/17 03:40 D-Dimer 253 ng/mLFEU (0-500) 06/14/17 10:54 Consult Discharge Plan - Plan Referrals: Jasiel Cox DO [Primary Care Provider] -
[2017-06-15] MEDS: *HR* FentaNYL (PF) 100 MCG/2 ML VIAL IVP PRN ×2 (19:00→22:34)
[2017-06-16] MEDS: 0.9 % Sodium Chloride 1,000 ML IVC SCH ×3 (01:09→16:17)
[2017-06-16] MEDS: *HR* FentaNYL (PF) 100 MCG/2 ML VIAL IVP PRN ×4 (02:08→13:17)
[2017-06-16] MEDS: *HR* OxyCODONE/APAP 10/325 TABLET PO PRN ×3 (04:15→17:31)
[2017-06-16] MEDS: *HR* Promethazine 25 MG/ML VIAL IVP PRN ×2 (04:15→13:16)
[2017-06-16 04:47] LABS: Hematocrit 32.6 % (35.3-44.9); Mean Corpuscular HGB Conc 32.8 g/dL (31.6-35.5); Mean Corpuscular Hemoglobin 29.9 pg (28.0-33.3); Mean Corpuscular Volume 91.1 fL (83.0-100.0); Mean Platelet Volume 9.7 fL (9.4-12.4); Platelet Count 197 K/mcL (140-400); Red Blood Count 3.58 M/mcL (3.82-4.97); Red Cell Distribution Width 13.3 % (11.5-14.5)
[2017-06-16 04:52] LABS: Hemoglobin 10.7 g/dL (11.5-15.4)
[2017-06-16 05:05] LABS: BUN/Creatinine Ratio 15 (6-26); Blood Urea Nitrogen 10 mg/dL (6-20); Calcium 8.6 mg/dL (8.6-10.3); Carbon Dioxide 25 mEq/L (23-29); Chloride 110 mEq/L (98-107); Glucose 102 mg/dL (70-105); Osmolality,Calculated 295 (280-300); Sodium 143 mEq/L (136-145); eGFR For African Americans > 60 (> 60); eGFR For Non-African Americans > 60 (> 60)
[2017-06-16] MEDS: Budesonide/Formoterol 160/4.5 MDI IH SCH (07:30)
[2017-06-16] MEDS: Fluticasone Propionate Nasal 50 MCG/SPRAY BOTTLE NS SCH (08:32)
[2017-06-16] MEDS: Sucralfate 1 GM TABLET PO SCH ×3 (08:33→16:18)
[2017-06-16] MEDS: amLODIPine 5 MG TABLET PO SCH (08:33)
--- NOTE | 2017-06-16 09:44 | Event Note ---
Date of Encounter: 06/16/17 Time of Encounter: 09:41 - Cardiology Event Note Stress test 08/25/15 with basal-apical inferior wall and basal inferolateral wall perfusion defects which lead to LHC on 08/26/15 with angiographically normal coronaries. False posotive stress test. Stress test 06/15/17 with basal and inferior and inferolateral wall perfusion defect. Given that perfusion defect is in the same territory with a recent negative LHC, suspect stress test false positive. Recommend evaluation for other causes of chest pain. No further cardiac testing warranted. Recommend follow up with PCP.
--- NOTE | 2017-06-16 11:42 | Gastroenterology Consult Note ---
<AdameJd Vaca - Last Filed: 06/16/17 11:30> Date of Encounter: 06/16/17 Time of Encounter: 10:00 - Assessment and plan (1) Abdominal pain Status: Acute Assessment and plan: Continue PPI. Plan for EGD as outpatient. Follow up in 2-3 weeks in GI office. Use PPI half hour before breakfast or evening meal. Lifestyle modifications include: 1) Elevate the head of the bed on 4"-6" blocks. 2) Exercise/Weight loss 3) Decrease the size of portions at mealtimes. 4) Avoid wearing tight clothing 5) Avoid recumbency for 3 hours after meals. 6) Avoid bedtime snacks. 7) Avoid fried or fatty foods, chocolate, peppermint, onions, garlic, coffee ( including decaf), carbonated beverages, ketchup/mustards, vinegar, tomato sauce , citrus fruits/juices. 8) Avoid cigarettes and alcohol. 9) Avoid aspirin, anti-inflammatory pain medications other than acetaminophen. 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 She has been seen by numerous GI specialists, however, no labs have been positive for this in the past. 24 hour urine porphobilinogen negative on 11/06/2014, 01/03/2015, 08/24/2015. Urine porphobilinogen negative on 11/06/2014, 01/03/2015, 08/24/2015, 2016. Urine porphyrins interpretation negative on 11/06/2014 and 10/19/2016 Qualifiers: Porphyria type: unspecified porphyria Qualified Code(s): E80.20 - Unspecified porphyria (3) Chest pain Status: Acute Qualifiers: Chest pain type: unspecified Qualified Code(s): R07.9 - Chest pain, unspecified - Time Spent With Patient Total time spent is greater than 50% in coordination of care (as documented) at patient's floor/unit and/or counseling patient: GI History of Present Illness - Data of Consult Patient: known to practice within the last 3 years Consult date: 06/16/17 Requesting Physician: Negra Lambert CNP - Consult Narrative Reason for consult: abdominal pain History of present illness: Ms. Morris is a 42 year old female with PMHx of asthma, HTN, esophageal ulcer in 2013 who presented to the ED with chest pain that started 2 hours prior to presentation. Pain was sharp and radiated to her back and left upper arm, and was associated with diaphoresis and shortness of breath. Pt completed a stress test that showed a perfusion defect in the same territory with a recent negative LHC, suspect stress test false positive. She denied fever, chills, nausea, vomiting, melena, or hematochezia. She has a history of esophageal ulceration and takes Protonix but states these sympoms are different and Maalox and Protonix have not relieved her symptoms. We have been consulted to evaluate her abdominal pain. She reports being diagnoses with AIP at the age of 13 at [facility]. She is drinking 2-3 cans of pop daily. Procedures: EGD 01/06/2015 Dr. Vela: Mild chronic gastritis. EGD 08/28/2013 Dr. Sual: LA grade B esophagitis, esophageal ulceration and mild nonspecific gastritis, suspected gastroparesis. NSAIDs: None Anticoagulation: Plavix Past Med Surg Social Fam HX - Past Medical History Medical history: asthma, hypertension Psychiatric history: no psych history - Past Surgical History Surgical History: cholecystectomy, , appendectomy - Social History Smoking Status: Never smoker Smokeless Tobacco Status: No Alcohol use: none Drug use: none - Family History Father Adopted: No Living Status: Still Living Hx Family Cardiac Disorders: Yes (HTN, HLD) Hx Family Respiratory Disorders: No Hx Family Cancer: No (tumor prostate benign) Hx Family GI Disorders: No Hx Family Genitourinary Disorders: No Hx Family Endocrine Disorder: No Hx Family Musculoskeletal Disorders: No Hx Family Neuromuscular Disorders: No Hx Family Neurologic Disorders: No Hx Family HEENT Disorders: No Hx Family Autoimmune Disorders: No Hx Family Reproductive Disorders: No Hx Family Psychosocial Disorders: No Hx Family Medical Disorders: No Sister Living Status: Still Living Hx Family Cardiac Disorders: Yes (HTN,) Hx Family Respiratory Disorders: No Hx Family Cancer: No Hx Family GI Disorders: Yes (diverticulitis.) Hx Family Genitourinary Disorders: No Hx Family Endocrine Disorder: No Hx Family Musculoskeletal Disorders: No Hx Family Neuromuscular Disorders: No Hx Family Neurologic Disorders: No Hx Family HEENT Disorders: No Hx Family Autoimmune Disorders: No Hx Family Reproductive Disorders: No Hx Family Psychosocial Disorders: No Hx Family Medical Disorders: No Mother Adopted: No Family Member Ethnicity: Non- Living Status: Still Living Hx Family Cardiac Disorders: Yes (Malignet HTN, CHF, AAA,) Hx Family Respiratory Disorders: Yes (COPD) Hx Family Cancer: No Hx Family GI Disorders: Yes (15 stomach ulcers) Hx Family Genitourinary Disorders: No Hx Family Endocrine Disorder: Yes (DM type 2) Hx Family Musculoskeletal Disorders: No Hx Family Neuromuscular Disorders: No Hx Family Neurologic Disorders: No Hx Family HEENT Disorders: No Hx Family Autoimmune Disorders: No Hx Family Reproductive Disorders: No Hx Family Psychosocial Disorders: No Hx Family Medical Disorders: No - Gastrointestinal Gastrointestinal: Present: as per HPI - Constitutional Constitutional: as per HPI - EENT Eyes: as per HPI Ears: Present: as per HPI Nose, mouth and throat: Present: as per HPI - Cardiovascular Cardiovascular ROS: Present: as per HPI - Respiratory Respiratory IM: Present: as per HPI - Genitourinary Genitourinary: Absent: change in color, Urinary frequency - Neurological ROS Neurological GI: Present: as per HPI - Hematologic/Lymphatic Hematologic/Lymphatic pediatric: Present: as per HPI - Musculoskeletal Musculoskeletal ROS GI: Present: as per HPI - Integumentary Integumentary GI: Present: as per HPI - Psychiatric ROS Psychiatric GI: Present: as per HPI - Endocrine Endocrine IM: Present: as per HPI - Constitutional Vitals: Temp Pulse Resp BP Pulse Ox 99.3 F 75 18 126/81 98 06/16/17 07:18 06/16/17 07:18 06/16/17 07:30 06/16/17 07:18 06/16/17 07:30 General appearance: Present: cooperative, A&O X 3, no acute distress, answers questions appropriately - Head Head exam: Present: atraumatic, normocephalic - Eye Eye exam: Present: normal appearance, sclera anicteric - ENT ENT exam: Present: mucous membranes dry - Neck Neck exam general surgery: Present: normal inspection, trachea midline - Respiratory Respiratory exam: Present: CTAB. Absent: rales, rhonchi - Cardiovascular Cardiovascular exam: Present: RRR, +S1, +S2 - GI/Abdominal GI/Abdominal exam: Present: soft, tenderness (epigastric tenderness), no peritoneal signs. Absent: distended, firm, guarding - Rectal Rectal exam: Present: deferred - Extremities Exam Extremities exam: Present: warm - Neurological Exam Neurological exam: Present: no focal deficits - Psychiatric Psychiatric exam: Present: normal affect, normal mood - Skin Skin exam: Present: dry, intact, normal color, warm Results - Labs CBC & Chem 7: 06/16/17 04:00 06/16/17 04:22 Labs: Last Result Calcium 8.6 mg/dL (8.6-10.3) 06/16/17 04:22 Troponin I < 0.03 ng/mL (< 0.04) 06/15/17 03:40 Entire Visit Hgb 10.7 g/dL (11.5-15.4) L 06/16/17 04:00 Hct 32.6 % (35.3-44.9) L 06/16/17 04:00 PT 13.1 Seconds (9.4-12.1) H 06/15/17 03:40 Total Bilirubin 0.5 mg/dL (0.3-1.0) 06/15/17 03:40 AST 107 Units/L (13-39) H 06/15/17 03:40 ALT 77 Units/L (7-52) H 06/15/17 03:40 Lipase 6 Units/L (11-82) L 06/14/17 10:54 - ABG ABG results: PT/INR, D-dimer PT 13.1 Seconds (9.4-12.1) H 06/15/17 03:40 D-Dimer 253 ng/mLFEU (0-500) 06/14/17 10:54 Consult Discharge Plan - Plan Instructions: Sucralfate (By mouth), Chest Pain (DC), Acute Abdominal Pain (DC) Referrals: Jasiel Cox DO [Primary Care Provider] - Prescriptions: Sucralfate [Carafate] 1 gm PO DA #120 tablet <Franc Olivia - Last Filed: 07/05/17 05:17> Date of Encounter: 06/16/17 - Time Spent With Patient Total time spent is greater than 50% in coordination of care (as documented) at patient's floor/unit and/or counseling patient: GI History of Present Illness - Data of Consult Requesting Physician: Negra Lambert CNP - Consult Narrative History of present illness: Ms. Morris is a 42 year old female - Constitutional Vitals: Temp Pulse Resp BP Pulse Ox 98.1 F 86 18 121/81 95 06/16/17 15:31 06/16/17 15:31 06/16/17 15:31 06/16/17 15:31 06/16/17 15:31 Results - Labs CBC & Chem 7: 06/16/17 04:00 06/16/17 04:22 Labs: Last Result Calcium 8.6 mg/dL (8.6-10.3) 06/16/17 04:22 Troponin I < 0.03 ng/mL (< 0.04) 06/15/17 03:40 Entire Visit Hgb 10.7 g/dL (11.5-15.4) L 06/16/17 04:00 Hct 32.6 % (35.3-44.9) L 06/16/17 04:00 PT 13.1 Seconds (9.4-12.1) H 06/15/17 03:40 Total Bilirubin 0.5 mg/dL (0.3-1.0) 06/15/17 03:40 AST 107 Units/L (13-39) H 06/15/17 03:40 ALT 77 Units/L (7-52) H 06/15/17 03:40 Lipase 6 Units/L (11-82) L 06/14/17 10:54 - ABG ABG results: PT/INR, D-dimer PT 13.1 Seconds (9.4-12.1) H 06/15/17 03:40 D-Dimer 253 ng/mLFEU (0-500) 06/14/17 10:54 - Attending Attestation Agree with outpatient workup. I examined this patient and my medical decision-making was reviewed with the Resident Physician. I agree with the documented findings, disposition and treatment plan as described except to the extent set forth below.
[2017-06-16 15:31] VITALS: BP 121/81
--- NOTE | 2017-06-16 16:13 | Discharge Summary ---
- NOTES TO OUTPATIENT PROVIDER Notes to Outpatient Provider: To follow-up with PCP within 5-7 days. To follow up with gastroenterology as scheduled for outpatient EGD. Patient to use a PPI half hour before breakfast her her evening meal. Continue Carafate until seen by GI service Orders not resulted at time of discharge: Pending orders 06/15/17 10:00 NM ana luisa perf SPECT multi [NM] Routine 06/15/17 17:00 Porphobilinogen,Ur Random Stat Date of Encounter: 06/16/17 Time of Encounter: 16:10 - Discharge Diagnosis (1) Abdominal pain Priority: Primary Status: Chronic Comments: to follow up outpatient with GI Continue PPI. Plan for EGD as outpatient. Follow up in 2-3 weeks in GI office. Use PPI half hour before breakfast or evening meal. Lifestyle modifications include: 1) Elevate the head of the bed on 4"-6" blocks. 2) Exercise/Weight loss 3) Decrease the size of portions at mealtimes. 4) Avoid wearing tight clothing 5) Avoid recumbency for 3 hours after meals. 6) Avoid bedtime snacks. 7) Avoid fried or fatty foods, chocolate, peppermint, onions, garlic, coffee ( including decaf), carbonated beverages, ketchup/mustards, vinegar, tomato sauce , citrus fruits/juices. 8) Avoid cigarettes and alcohol. 9) Avoid aspirin, anti-inflammatory pain medications other than acetaminophen. 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 She has been seen by numerous GI specialists, however, no labs have been positive for this in the past. 24 hour urine porphobilinogen negative on 11/06/2014, 01/03/2015, 08/24/2015. Urine porphobilinogen negative on 11/06/2014, 01/03/2015, 08/24/2015, 2016. Urine porphyrins interpretation negative on 11/06/2014 and 10/19/2016 (3) Nausea Priority: Primary Status: Chronic Comments: tolerating diet (4) Chest pain Priority: Primary Status: Acute Comments: Stress test completed. Urology note stress test 08/25/15 with basal apical inferior wall and basal inferior lateral wall perfusion defects which led to left heart catheter on 08/25 with angiographically normal coronaries. Considered a false positive stress test. Stress test today with same perfusion defects. Suspect stress test is false positive. Recommend evaluation for other causes of chest pain per cardiology. No further cardiac testing warranted. Recommend follow- up with PCP. The patient will have a EGD as an outpatient per gastroenterology service as she does have epigastric pain and history of ulcers. Qualifiers: Chest pain type: precordial pain Qualified Code(s): R07.2 - Precordial pain (5) Esophageal ulceration Priority: Primary Status: Chronic Comments: Outpatient EGD being scheduled Qualifiers: Esophageal ulcer bleeding: without bleeding Qualified Code(s): K22.10 - Ulcer of esophagus without bleeding (6) Morbid obesity with BMI of 45.0-49.9, adult Priority: Primary Status: Chronic Comments: life style medications including diet and exercise Hospital course: Ms. Morris is a 42 year old female with complaints of atypical chest pain and epigastric pain. Please see assessment and plan for details of this admission. Discharge discussed with: patient, nurse, analytical consultant - Time Spent with Patient Total time spent providing and/or coordinating discharge services: Less than 30 minutes - Discharge Medications Prescriptions: Sucralfate [Carafate] 1 gm PO QIDAC #120 tablet Home Medications: Amlodipine Besylate [Norvasc] 5 mg PO BID 10/14/14 [History] OxyCODONE/APAP 10/325 [Percocet 10/325] 1 tab PO Q6H PRN 10/14/14 [History] Pantoprazole Sodium [Protonix] 40 mg PO BID #60 granpkt 10/18/14 [Rx] Budesonide/Formoterol 160/4.5 [Symbicort 160/4.5] 2 puff IH BID 06/12/16 [ History] Ipratropium/Albuterol Neb [Duoneb] 3 ml IH Q6H PRN 10/18/16 [History] Fluticasone Propionate Nasal [Flonase] 120 spray NS DAILY #1 bottle 05/23/17 [Rx ] Cyclobenzaprine [Flexeril] 10 mg PO HS 06/14/17 [History] Promethazine [Phenergan] 25 mg PO Q6HR PRN 06/14/17 [History] SUMAtriptan Succinate [Imitrex] 100 mg PO DAILY PRN 06/14/17 [History] Sucralfate [Carafate] 1 gm PO QIDAC #120 tablet 06/16/17 [Rx] Allergies/Adverse Reactions: 3 Allergy/AdvReac Type Severity Reaction Status Date / Time aspirin [ASA] Allergy See Verified 06/14/17 09:56 Comments Barbiturates Allergy Hives Verified 06/14/17 09:56 Penicillins Allergy Swelling Verified 06/14/17 09:56 of Lip/Tongue/Throat Sulfa (Sulfonamide Allergy Hives Verified 06/14/17 09:56 Antibiotics) diphenhydramine AdvReac Abdominal Verified 06/14/17 13:10 [From Benadryl] Pain ketorolac [From Toradol] AdvReac See Verified 06/14/17 13:10 Comments morphine AdvReac Abdominal Verified 06/14/17 09:56 Pain NSAIDS (Non-Steroidal AdvReac See Verified 06/14/17 13:10 Anti-Inflamma Comments Steroids AdvReac Abdominal Uncoded 05/11/17 13:10 Pain Date of admission: 06/14/17 14:41 Primary care physician: Dylon Jansen Consults: 06/15/17 13:21 Consult to Gastroenterology [CONS] Routine Consulting Provider: [facility] Reason for Consult: epigastric pain and history of esophageal ulceration Time Notified: 13:22 Call Completed: Yes Discharging clinician: Princess Gauthier Anticipated date of discharge: 06/16/17 - Constitutional Vitals: Temp Pulse Resp BP Pulse Ox 98.1 F 86 18 121/81 95 06/16/17 15:31 06/16/17 15:31 06/16/17 15:31 06/16/17 15:31 06/16/17 15:31 General appearance: Present: disheveled, A&O X 3, morbidly obese, pleasant, no acute distress, answers questions appropriately - Head Head exam: Present: atraumatic, normocephalic - Eye Eye exam: Present: PERRL, conjuntiva pink, sclera anicteric Pupils: Present: PERRL - Neck Neck exam general surgery: Present: supple, trachea midline. Absent: lymphadenopathy - Respiratory Respiratory exam: Present: CTAB. Absent: accessory muscle use, rales, rhonchi, wheezes - Cardiovascular Cardiovascular exam: Present: RRR, +S1, +S2. Absent: diastolic murmur, gallop, rubs, systolic murmur - GI/Abdominal GI/Abdominal exam: Present: normal bowel sounds, soft, no peritoneal signs. Absent: distended, tenderness Additional comments: obese - Extremities Exam Extremities exam: Present: warm, radial pulses palpable and symmetrical. Absent : calf tenderness, cyanotic, pedal edema - Neurological Exam Neurological exam: Present: alert, CN II-XII intact, oriented X3, no focal deficits. Absent: pronater drift, facial droop, speech deficit - Skin Skin exam: Present: dry, intact, normal color, warm Additional comments: implanted port - Patient Status Disposition: Home, Self-Care Condition: Good Functional capacity at discharge: independent ambulation Overall status at discharge: patient is progressing back to baseline - Discharge Instructions Follow Up With: Jasiel Cox DO [Primary Care Provider] - - Diet and Activity Activity: resume usual activities as tolerated Diet: low fat, low cholesterol, low salt diet
--- NOTE | 2017-06-17 13:47 | Electrocardiograph Report ---
[address] [place], [place] [address] Test Date: 2017-06-14 Pat Name: Bev Morris Department: 103 Room: 3B48 Gender: F [employer]: JACQUELYN : 1975 Requested By: Dennys Hagen Order Number: [id number] Reading MD: Ruma Balderrama Measurements Intervals [place] Rate: 123 P: 24 TX: 161 QRS: -26 QRSD: 88 T: 9 QT: 337 QTc: 410 Interpretive Statements SINUS TACHYCARDIA INFERIOR MYOCARDIAL INFARCTION [40+ ms Q WAVE AND/OR ST/T ABNORMALITY IN II/aVF], PROBABLY OLD Electronically Signed On 06-17-2017 13:46:17 EDT by Ruma Balderrama
== END 2017-06-16 17:33 | disposition home or self-care (01) ==
LOC: EMEROO 09:53 → 3BNU 09:53
PROVIDERS: ADMIT Internal Medicine; ATTEND Registered Nurse

== ENCOUNTER 2021-03-26 15:20 | Inpatient (IN) ==
[2021-03-26] MEDS ORDERED: Ipratropium/Albuterol Neb 3 ML IH ONE (15:24)
[2021-03-26] MEDS ORDERED: methylPREDNISolone 125 MG/2 ML VIAL IVP ONE (15:24)
[2021-03-26 15:36] LABS: ABG Base Excess 0 mEq/L (-2 to 3); ABG HCO3 23 mEq/L (21-27); ABG Oxygen Saturation 93 % (95-98); ABG PCO2 32 mmHg (35-45); ABG PH 7.47 pH Units (7.32-7.45); ABG PO2 62 mmHg (85-104); ABG TCO2 24 mEq/L (20-26); Blood Gas Modality NIV
[2021-03-26] MEDS ORDERED: Ondansetron 4 MG/2 ML VIAL IVP ONE (15:40)
[2021-03-26 16:06] LABS: Basophils % 0.3 %; Eosinophils % 0.3 %; Hematocrit 38.6 % (35.3-44.9); Hemoglobin 12.8 g/dL (11.5-15.4); Immature Granulocytes % 0.7 % (0-4); Lymphocytes # 0.3 K/mcL (0.6-4.6); Lymphocytes % 8.5 %; Mean Corpuscular HGB Conc 33.2 g/dL (31.6-35.5); Mean Corpuscular Hemoglobin 29.8 pg (28.0-33.3); Mean Corpuscular Volume 89.8 fL (83.0-100.0); Mean Platelet Volume 10.6 fL (9.4-12.4); Monocytes # 0.2 K/mcL (0.0-1.3); Monocytes % 7.2 %; Neutrophils # 2.6 K/mcL (1.6-8.9); Platelet Count 132 K/mcL (140-400); Red Cell Distribution Width 13.5 % (11.5-14.5)
[2021-03-26 16:08] LABS: White Blood Count 3.1 K/mcL (4.3-11.1)
[2021-03-26 16:11] LABS: Alanine Aminotransferase 52 Units/L (7-52); Albumin 3.8 g/dL (3.5-5.7); Albumin/Globulin Ratio 1.2 (1.1-2.2); Alkaline Phosphatase 75 Units/L (34-104); Aspartate Amino Transferase 106 Units/L (13-39); BUN/Creatinine Ratio 34 (6-26); Bilirubin,Direct 0.3 mg/dL (0.0-0.2); Bilirubin,Indirect 0.3 mg/dL (0.0-1.0); Bilirubin,Total 0.6 mg/dL (0.3-1.0); Blood Urea Nitrogen 35 mg/dL (6-20); Carbon Dioxide 23 mEq/L (23-29); Chloride 97 mEq/L (98-107); Globulin 3.3 g/dL (2.4-3.5); Glucose 116 mg/dL (70-105); Osmolality,Calculated 283 (280-300); Potassium 3.3 mEq/L (3.5-5.1); Sodium 132 mEq/L (136-145); Total Protein 7.1 g/dL (6.4-8.9); Troponin I < 0.03 ng/mL (< 0.04); eGFR For African Americans > 60 (> 60); eGFR For Non-African Americans 58 (> 60)
[2021-03-26] MEDS ORDERED: *HR* HYDROmorphone (PF) 1 MG/ML SYRINGE IVP ONE (16:35)
[2021-03-26 17:26] LABS: C-Reactive Protein 96 mg/L (Less than 10)
[2021-03-26] MEDS ORDERED: Naloxone 0.4 MG/ML INJ IVP PRN (19:09)
[2021-03-26] MEDS ORDERED: Isovue-370 500 ML BOTTLE IVP ONE (19:14)
[2021-03-26] MEDS ORDERED: Ipratropium/Albuterol Neb 3 ML IH PRN (19:17)
[2021-03-26] MEDS ORDERED: Azithromycin 500 MG in 0.9 % Sodium Chloride 250 ML IVPB SCH (20:00)
[2021-03-26] MEDS: cefTRIAXone 2,000 MG in 0.9 % Sodium Chloride Mini Bag 100 ML IVPB SCH (20:25)
[2021-03-26] MEDS: Ondansetron 4 MG/2 ML VIAL IVP PRN (20:30)
[2021-03-26] MEDS: *HR* HYDROcodone/Acet 7.5/325 mg TABLET PO PRN (20:51)
[2021-03-26 21:57] LABS: Influenza A PCR Negative (Negative); Influenza B PCR Negative (Negative); Resp. Syncytial Virus PCR Negative (Negative)
[2021-03-26] MEDS ORDERED: Ondansetron ODT 4 MG TAB.RAPDIS SL PRN (22:52)
[2021-03-26] MEDS ORDERED: GI Cocktail 40 ML EACH PO ONE (22:58)
[2021-03-26] MEDS: *HR* Heparin 5,000 UNIT/ML VIAL SQ SCH (23:09)
[2021-03-26 23:42] LABS: SARS-CoV-2 by PCR (In House) Positive (Negative)
[2021-03-27] MEDS ORDERED: *HR* LORazepam 2 MG/ML VIAL IVP ONE (02:27)
[2021-03-27 06:12] LABS: Mean Corpuscular Volume 91.1 fL (83.0-100.0)
[2021-03-27 06:13] LABS: Hematocrit 38.7 % (35.3-44.9); Hemoglobin 12.5 g/dL (11.5-15.4); Mean Corpuscular HGB Conc 32.3 g/dL (31.6-35.5); Mean Corpuscular Hemoglobin 29.4 pg (28.0-33.3); Mean Platelet Volume 11.2 fL (9.4-12.4); Monocytes # 0.1 K/mcL (0.0-1.3); Platelet Count 130 K/mcL (140-400); Red Blood Count 4.25 M/mcL (3.82-4.97); Red Cell Distribution Width 13.7 % (11.5-14.5); White Blood Count 1.4 K/mcL (4.3-11.1)
[2021-03-27] MEDS: *HR* Heparin 5,000 UNIT/ML VIAL SQ SCH ×3 (06:18→21:45)
[2021-03-27 06:24] LABS: Alanine Aminotransferase 44 Units/L (7-52); Albumin 3.6 g/dL (3.5-5.7); Albumin/Globulin Ratio 1.1 (1.1-2.2); Alkaline Phosphatase 70 Units/L (34-104); Aspartate Amino Transferase 79 Units/L (13-39); BUN/Creatinine Ratio 30 (6-26); Bilirubin,Total 0.4 mg/dL (0.3-1.0); Blood Urea Nitrogen 26 mg/dL (6-20); Calcium 8.2 mg/dL (8.6-10.3); Carbon Dioxide 25 mEq/L (23-29); Chloride 101 mEq/L (98-107); Globulin 3.2 g/dL (2.4-3.5); Glucose 120 mg/dL (70-105); Magnesium 2.9 mg/dL (1.6-2.6); Osmolality,Calculated 292 (280-300); Potassium 3.7 mEq/L (3.5-5.1); Sodium 138 mEq/L (136-145); Total Protein 6.8 g/dL (6.4-8.9); eGFR For African Americans > 60 (> 60); eGFR For Non-African Americans > 60 (> 60)
[2021-03-27 07:21] LABS: Anisocytosis 1+ (Not Present); Lymphocytes # 0.4 K/mcL (0.6-4.6); Platelet Estimate Decreased (Normal)
[2021-03-27] MEDS: Ondansetron 4 MG/2 ML VIAL IVP PRN (08:20)
[2021-03-27] MEDS: *HR* HYDROcodone/Acet 7.5/325 mg TABLET PO PRN ×2 (08:20→15:56)
[2021-03-27] MEDS: cefTRIAXone 2,000 MG in 0.9 % Sodium Chloride Mini Bag 100 ML IVPB SCH (08:21)
[2021-03-27] MEDS: Dexamethasone Sodium Phos/PF 10 MG/ML VIAL IVP SCH (08:21)
[2021-03-27] MEDS ORDERED: Prochlorperazine 10 MG/2 ML VIAL IM PRN (14:39)
[2021-03-27] MEDS ORDERED: TOCILIZUMAB 800 MG in 0.9 % Sodium Chloride 100 ML IVPB ONE (16:00)
[2021-03-28] MEDS: Ondansetron 4 MG/2 ML VIAL IVP PRN (01:15)
[2021-03-28] MEDS: *HR* HYDROcodone/Acet 7.5/325 mg TABLET PO PRN ×2 (01:15→14:45)
[2021-03-28] MEDS ORDERED: *HR* LORazepam 2 MG/ML VIAL IVP ONE ×2 (04:15→21:33)
[2021-03-28] MEDS: *HR* Heparin 5,000 UNIT/ML VIAL SQ SCH ×3 (07:38→21:03)
[2021-03-28] MEDS: Dexamethasone Sodium Phos/PF 10 MG/ML VIAL IVP SCH (07:39)
[2021-03-28] MEDS: Furosemide 20 MG/2 ML VIAL IVP SCH (07:39)
[2021-03-28 11:58] LABS: Hematocrit 37.9 % (35.3-44.9); Hemoglobin 12.6 g/dL (11.5-15.4); Mean Corpuscular HGB Conc 33.2 g/dL (31.6-35.5); Mean Corpuscular Hemoglobin 30.9 pg (28.0-33.3); Mean Corpuscular Volume 92.9 fL (83.0-100.0); Mean Platelet Volume 10.7 fL (9.4-12.4); Platelet Count 164 K/mcL (140-400); Red Blood Count 4.08 M/mcL (3.82-4.97); Red Cell Distribution Width 13.5 % (11.5-14.5)
[2021-03-28 12:16] LABS: White Blood Count 2.8 K/mcL (4.3-11.1)
[2021-03-28 12:18] LABS: BUN/Creatinine Ratio 39 (6-26); Blood Urea Nitrogen 39 mg/dL (6-20); C-Reactive Protein 44 mg/L (Less than 10); Calcium 8.3 mg/dL (8.6-10.3); Carbon Dioxide 26 mEq/L (23-29); Chloride 103 mEq/L (98-107); Glucose 122 mg/dL (70-105); Lactate Dehydrogenase 416 Units/L (140-271); Osmolality,Calculated 295 (280-300); Sodium 137 mEq/L (136-145); eGFR For African Americans > 60 (> 60); eGFR For Non-African Americans 59 (> 60)
[2021-03-28 12:37] LABS: Ferritin 845 ng/mL (10-120)
[2021-03-28] MEDS ORDERED: traZODone 50 MG TABLET PO SCH (21:45)
[2021-03-29] MEDS: Ondansetron 4 MG/2 ML VIAL IVP PRN (00:24)
[2021-03-29] MEDS: Melatonin 3 MG TABLET PO SCH ×2 (00:25→20:16)
[2021-03-29] MEDS: *HR* HYDROcodone/Acet 7.5/325 mg TABLET PO PRN ×3 (00:27→20:16)
[2021-03-29 06:44] LABS: Hematocrit 35.9 % (35.3-44.9); Hemoglobin 11.4 g/dL (11.5-15.4); Mean Corpuscular HGB Conc 31.8 g/dL (31.6-35.5); Mean Corpuscular Hemoglobin 29.5 pg (28.0-33.3); Mean Platelet Volume 10.6 fL (9.4-12.4); Platelet Count 168 K/mcL (140-400); Red Blood Count 3.86 M/mcL (3.82-4.97); Red Cell Distribution Width 13.4 % (11.5-14.5); White Blood Count 2.7 K/mcL (4.3-11.1)
[2021-03-29 07:06] LABS: BUN/Creatinine Ratio 51 (6-26); Blood Urea Nitrogen 47 mg/dL (6-20); Calcium 8.1 mg/dL (8.6-10.3); Carbon Dioxide 27 mEq/L (23-29); Chloride 101 mEq/L (98-107); Glucose 100 mg/dL (70-105); Lactate Dehydrogenase 396 Units/L (140-271); Osmolality,Calculated 294 (280-300); Potassium 3.7 mEq/L (3.5-5.1); Sodium 136 mEq/L (136-145); eGFR For African Americans > 60 (> 60); eGFR For Non-African Americans > 60 (> 60)
[2021-03-29 07:21] LABS: Ferritin 775 ng/mL (10-120)
[2021-03-29] MEDS: Dexamethasone Sodium Phos/PF 10 MG/ML VIAL IVP SCH (07:37)
[2021-03-29] MEDS: *HR* Heparin 5,000 UNIT/ML VIAL SQ SCH ×2 (07:37→12:59)
[2021-03-29] MEDS: Furosemide 20 MG/2 ML VIAL IVP SCH (07:38)
[2021-03-29] MEDS ORDERED: Rizatriptan Benzoate [Maxalt] 10 MG Tablet PO PRN (08:12)
[2021-03-29] MEDS ORDERED: *HR* OxyCODONE/APAP 10/325 TABLET PO PRN (11:08)
[2021-03-29] MEDS: *HR* Enoxaparin 40 MG/0.4 ML SYRINGE SQ SCH (20:16)
[2021-03-30] MEDS: FLUoxetine 20 MG CAPSULE PO SCH (01:25)
[2021-03-30 06:48] LABS: Hematocrit 36.1 % (35.3-44.9); Hemoglobin 12.1 g/dL (11.5-15.4); Immature Granulocytes % 0.7 % (0-4); Lymphocytes # 0.5 K/mcL (0.6-4.6); Lymphocytes % 16.5 %; Mean Corpuscular HGB Conc 33.5 g/dL (31.6-35.5); Mean Corpuscular Hemoglobin 31.1 pg (28.0-33.3); Mean Corpuscular Volume 92.8 fL (83.0-100.0); Mean Platelet Volume 10.6 fL (9.4-12.4); Monocytes # 0.1 K/mcL (0.0-1.3); Monocytes % 4.4 %; Neutrophils # 2.1 K/mcL (1.6-8.9); Platelet Count 164 K/mcL (140-400); Red Blood Count 3.89 M/mcL (3.82-4.97); Red Cell Distribution Width 13.2 % (11.5-14.5); Segmented Neutrophils % 78.4 %; White Blood Count 2.7 K/mcL (4.3-11.1)
[2021-03-30 07:00] LABS: Fibrinogen 246 mg/dL (169-393)
[2021-03-30 07:01] LABS: BUN/Creatinine Ratio 47 (6-26); Blood Urea Nitrogen 37 mg/dL (6-20); Calcium 8.1 mg/dL (8.6-10.3); Carbon Dioxide 28 mEq/L (23-29); Chloride 103 mEq/L (98-107); Glucose 92 mg/dL (70-105); Lactate Dehydrogenase 442 Units/L (140-271); Osmolality,Calculated 294 (280-300); Phosphorous 3.8 mg/dL (2.7-4.5); Potassium 3.6 mEq/L (3.5-5.1); Sodium 138 mEq/L (136-145); eGFR For African Americans > 60 (> 60); eGFR For Non-African Americans > 60 (> 60)
[2021-03-30 07:03] LABS: D-Dimer 419 ng/mLFEU (0-500)
[2021-03-30] MEDS: Dexamethasone Sodium Phos/PF 10 MG/ML VIAL IVP SCH (07:33)
[2021-03-30] MEDS: Furosemide 20 MG/2 ML VIAL IVP SCH (07:33)
[2021-03-30] MEDS: *HR* Enoxaparin 40 MG/0.4 ML SYRINGE SQ SCH ×2 (07:37→21:08)
[2021-03-30] MEDS ORDERED: *HR* HYDROcodone/Acet 5/325 mg TABLET PO PRN (15:52)
[2021-03-30] MEDS ORDERED: *HR* Atropine Sulfate 1 MG/10 ML SYRINGE IVP PRN (17:09)
[2021-03-30] MEDS: Melatonin 3 MG TABLET PO SCH (21:08)
[2021-03-30] MEDS ORDERED: *HR* HYDROcodone/Acet 7.5/325 mg TABLET PO PRN (22:27)
[2021-03-30] MEDS ORDERED: *HR* OxyCODONE Immed Rel 5 MG TABLET PO PRN (22:48)
[2021-03-31] MEDS: FLUoxetine 20 MG CAPSULE PO SCH (09:11)
[2021-03-31] MEDS: Furosemide 20 MG/2 ML VIAL IVP SCH (09:21)
[2021-03-31] MEDS: *HR* Enoxaparin 40 MG/0.4 ML SYRINGE SQ SCH ×2 (09:22→20:19)
[2021-03-31] MEDS: Dexamethasone Sodium Phos/PF 10 MG/ML VIAL IVP SCH (09:22)
[2021-03-31] MEDS: *HR* HYDROcodone/Acet 5/325 mg TABLET PO PRN ×2 (10:07→18:10)
[2021-03-31] MEDS: Melatonin 3 MG TABLET PO SCH (20:19)
[2021-04-01 01:00] LABS: Basophils % 0.2 %; Eosinophils % 0.2 %; Hematocrit 39.7 % (35.3-44.9); Hemoglobin 13.6 g/dL (11.5-15.4); Immature Granulocytes % 1.3 % (0-4); Lymphocytes # 0.3 K/mcL (0.6-4.6); Lymphocytes % 4.9 %; Mean Corpuscular HGB Conc 34.3 g/dL (31.6-35.5); Mean Corpuscular Hemoglobin 30.8 pg (28.0-33.3); Mean Platelet Volume 10.8 fL (9.4-12.4); Monocytes # 0.2 K/mcL (0.0-1.3); Monocytes % 2.5 %; Neutrophils # 5.5 K/mcL (1.6-8.9); Platelet Count 220 K/mcL (140-400); Red Blood Count 4.41 M/mcL (3.82-4.97); Segmented Neutrophils % 90.9 %
[2021-04-01 01:01] LABS: White Blood Count 6.1 K/mcL (4.3-11.1)
[2021-04-01 01:10] LABS: Fibrinogen 240 mg/dL (169-393)
[2021-04-01 01:14] LABS: D-Dimer 409 ng/mLFEU (0-500)
[2021-04-01 01:18] LABS: BUN/Creatinine Ratio 39 (6-26); Blood Urea Nitrogen 28 mg/dL (6-20); Calcium 8.7 mg/dL (8.6-10.3); Carbon Dioxide 28 mEq/L (23-29); Chloride 102 mEq/L (98-107); Glucose 95 mg/dL (70-105); Magnesium 2.8 mg/dL (1.6-2.6); Osmolality,Calculated 289 (280-300); Phosphorous 3.3 mg/dL (2.7-4.5); Potassium 3.7 mEq/L (3.5-5.1); Sodium 137 mEq/L (136-145); eGFR For African Americans > 60 (> 60); eGFR For Non-African Americans > 60 (> 60)
[2021-04-01] MEDS: *HR* HYDROcodone/Acet 5/325 mg TABLET PO PRN (02:11)
[2021-04-01] MEDS: Ondansetron 4 MG/2 ML VIAL IVP PRN (06:36)
[2021-04-01] MEDS: FLUoxetine 20 MG CAPSULE PO SCH (09:45)
[2021-04-01] MEDS: Furosemide 20 MG/2 ML VIAL IVP SCH (09:45)
[2021-04-01] MEDS: *HR* Enoxaparin 40 MG/0.4 ML SYRINGE SQ SCH ×2 (09:46→20:49)
[2021-04-01] MEDS: Dexamethasone Sodium Phos/PF 10 MG/ML VIAL IVP SCH (09:46)
[2021-04-01] MEDS ORDERED: levoFLOXacin 750 MG/150 ML 750 MG/150 ML BAG IVPB SCH (10:15)
[2021-04-01] MEDS ORDERED: Furosemide 20 MG/2 ML VIAL IVP ONE (10:32)
[2021-04-01] MEDS ORDERED: Acetaminophen IV 500 MG/50 ML BAG IVPB ONE (13:05)
[2021-04-01] MEDS ORDERED: Lidocaine -MPF 1% 5 ML AMPUL INFILT ONE (13:56)
[2021-04-01] MEDS: Acetaminophen 325 MG TABLET PO PRN (18:18)
[2021-04-01] MEDS: Melatonin 3 MG TABLET PO SCH (20:49)
[2021-04-02] MEDS: *HR* HYDROcodone/Acet 5/325 mg TABLET PO PRN ×3 (02:06→20:31)
[2021-04-02 04:05] LABS: Basophils % 0.2 %; Eosinophils # 0.1 K/mcL (0.0-0.6); Eosinophils % 1.6 %; Hematocrit 40.2 % (35.3-44.9); Hemoglobin 13.4 g/dL (11.5-15.4); Lymphocytes # 0.4 K/mcL (0.6-4.6); Lymphocytes % 7.2 %; Mean Corpuscular HGB Conc 33.3 g/dL (31.6-35.5); Mean Corpuscular Hemoglobin 30.9 pg (28.0-33.3); Mean Corpuscular Volume 92.6 fL (83.0-100.0); Mean Platelet Volume 10.8 fL (9.4-12.4); Monocytes # 0.1 K/mcL (0.0-1.3); Monocytes % 1.9 %; Platelet Count 187 K/mcL (140-400); Red Blood Count 4.34 M/mcL (3.82-4.97); Red Cell Distribution Width 13.2 % (11.5-14.5); Segmented Neutrophils % 88.1 %; White Blood Count 5.7 K/mcL (4.3-11.1)
[2021-04-02 04:11] LABS: Alanine Aminotransferase 105 Units/L (7-52); Albumin 3.6 g/dL (3.5-5.7); Albumin/Globulin Ratio 1.4 (1.1-2.2); Alkaline Phosphatase 71 Units/L (34-104); Aspartate Amino Transferase 75 Units/L (13-39); BUN/Creatinine Ratio 37 (6-26); Blood Urea Nitrogen 28 mg/dL (6-20); C-Reactive Protein < 5 mg/L (Less than 10); Calcium 8.8 mg/dL (8.6-10.3); Carbon Dioxide 27 mEq/L (23-29); Chloride 102 mEq/L (98-107); Globulin 2.6 g/dL (2.4-3.5); Glucose 82 mg/dL (70-105); Osmolality,Calculated 285 (280-300); Potassium 3.7 mEq/L (3.5-5.1); Sodium 135 mEq/L (136-145); Total Protein 6.2 g/dL (6.4-8.9); eGFR For African Americans > 60 (> 60); eGFR For Non-African Americans > 60 (> 60)
[2021-04-02 04:12] LABS: Magnesium 2.5 mg/dL (1.6-2.6); Phosphorous 3.7 mg/dL (2.7-4.5); Troponin I < 0.03 ng/mL (< 0.04)
[2021-04-02 04:15] LABS: Fibrinogen 215 mg/dL (169-393)
[2021-04-02 04:32] LABS: D-Dimer 991 ng/mLFEU (0-500)
[2021-04-02] MEDS: FLUoxetine 20 MG CAPSULE PO SCH (08:41)
[2021-04-02] MEDS: Dexamethasone Sodium Phos/PF 10 MG/ML VIAL IVP SCH (08:41)
[2021-04-02] MEDS: Furosemide 20 MG/2 ML VIAL IVP SCH (08:41)
[2021-04-02] MEDS: *HR* Enoxaparin 40 MG/0.4 ML SYRINGE SQ SCH ×2 (08:42→20:31)
[2021-04-02 10:50] LABS: Triglycerides 208 mg/dL (< 150)
[2021-04-02] MEDS ORDERED: D10% in Water 500 ML IVC PRN (11:02)
[2021-04-02] MEDS ORDERED: Furosemide 20 MG/2 ML VIAL IVP ONE (11:05)
[2021-04-02] MEDS: Insulin LISPRO 300 UNITS/3 ML VIAL SUBQ SCH ×4 (11:32→23:44)
[2021-04-02 13:11] LABS: Bilirubin,Urine Negative (Negative); Blood,Urine Negative (Negative); Clarity,Urine Clear (Clear); Color,Urine Light-Yellow (Yellow); Glucose,Urine (UA) Normal (Normal); Ketones,Urine Negative (Negative); Leukocyte Esterase,Urine Negative (Negative); Nitrite,Urine Negative (Negative); Protein,Urine Negative (Neg-Trace); Specific Gravity,Urine 1.011 (1.010-1.025); Urobilinogen,Urine Normal (Normal)
[2021-04-02] MEDS: Clinimix E 5%-15% SOLUTION 2,000 ML with MVI, adult with vitamin K 10 ML IVC SCH (15:50)
[2021-04-02] MEDS: Acetaminophen 325 MG TABLET PO PRN (15:51)
[2021-04-02] MEDS: Ondansetron 4 MG/2 ML VIAL IVP PRN (15:51)
[2021-04-02] MEDS: Melatonin 3 MG TABLET PO SCH (20:31)
[2021-04-03] MEDS ORDERED: ALPRAZolam 0.5 MG TABLET PO ONE (02:36)
[2021-04-03 03:23] LABS: VBG Ionized Calcium 1.11 mmol/L (1.15-1.35)
[2021-04-03 03:30] LABS: Alanine Aminotransferase 94 Units/L (7-52); Albumin 3.6 g/dL (3.5-5.7); Albumin/Globulin Ratio 1.3 (1.1-2.2); Alkaline Phosphatase 72 Units/L (34-104); Aspartate Amino Transferase 54 Units/L (13-39); BUN/Creatinine Ratio 37 (6-26); Bilirubin,Total 0.9 mg/dL (0.3-1.0); Blood Urea Nitrogen 25 mg/dL (6-20); Calcium 8.8 mg/dL (8.6-10.3); Carbon Dioxide 29 mEq/L (23-29); Chloride 100 mEq/L (98-107); Globulin 2.7 g/dL (2.4-3.5); Glucose 103 mg/dL (70-105); Magnesium 2.4 mg/dL (1.6-2.6); Osmolality,Calculated 283 (280-300); Phosphorous 3.6 mg/dL (2.7-4.5); Potassium 3.7 mEq/L (3.5-5.1); Sodium 134 mEq/L (136-145); Total Protein 6.3 g/dL (6.4-8.9); eGFR For African Americans > 60 (> 60); eGFR For Non-African Americans > 60 (> 60)
[2021-04-03 03:33] LABS: Albumin 3.6 g/dL (3.5-5.7); Albumin/Globulin Ratio 1.4 (1.1-2.2); Bilirubin,Direct 0.3 mg/dL (0.0-0.2); Bilirubin,Indirect 0.6 mg/dL (0.0-1.0); Bilirubin,Total 0.9 mg/dL (0.3-1.0); Globulin 2.6 g/dL (2.4-3.5); Total Protein 6.2 g/dL (6.4-8.9)
[2021-04-03] MEDS: Insulin LISPRO 300 UNITS/3 ML VIAL SUBQ SCH ×5 (04:09→20:15)
[2021-04-03] MEDS: *HR* HYDROcodone/Acet 5/325 mg TABLET PO PRN ×3 (05:29→23:24)
[2021-04-03] MEDS ORDERED: Furosemide 40 MG/4 ML VIAL ONE (07:26)
[2021-04-03] MEDS: FLUoxetine 20 MG CAPSULE PO SCH (07:27)
[2021-04-03] MEDS: Dexamethasone Sodium Phos/PF 10 MG/ML VIAL IVP SCH (07:27)
[2021-04-03] MEDS: Furosemide 20 MG/2 ML VIAL IVP SCH (07:29)
[2021-04-03] MEDS: Acetaminophen 325 MG TABLET PO PRN (07:31)
[2021-04-03] MEDS: *HR* Enoxaparin 40 MG/0.4 ML SYRINGE SQ SCH ×2 (07:31→20:20)
[2021-04-03] MEDS: Clinimix E 5%-15% SOLUTION 2,000 ML with MVI, adult with vitamin K 10 ML IVC SCH ×2 (18:28→18:29)
[2021-04-03] MEDS: Melatonin 3 MG TABLET PO SCH (20:17)
[2021-04-04] MEDS: Insulin LISPRO 300 UNITS/3 ML VIAL SUBQ SCH ×6 (00:37→20:55)
[2021-04-04] MEDS: Morphine Sulfate 2 MG/ML SYRINGE IVP PRN ×5 (03:03→22:13)
[2021-04-04 03:37] LABS: VBG Ionized Calcium 1.19 mmol/L (1.15-1.35)
[2021-04-04 05:07] LABS: Basophils % 0.3 %; Eosinophils # 0.1 K/mcL (0.0-0.6); Eosinophils % 1.2 %; Hematocrit 39.4 % (35.3-44.9); Hemoglobin 12.6 g/dL (11.5-15.4); Immature Granulocytes % 2.1 % (0-4); Lymphocytes # 0.6 K/mcL (0.6-4.6); Lymphocytes % 6.2 %; Mean Corpuscular Hemoglobin 30.4 pg (28.0-33.3); Mean Platelet Volume 11.3 fL (9.4-12.4); Monocytes # 0.1 K/mcL (0.0-1.3); Monocytes % 1.6 %; Neutrophils # 7.9 K/mcL (1.6-8.9); Platelet Count 164 K/mcL (140-400); Red Blood Count 4.14 M/mcL (3.82-4.97); Red Cell Distribution Width 13.3 % (11.5-14.5); Segmented Neutrophils % 88.6 %; White Blood Count 8.9 K/mcL (4.3-11.1)
[2021-04-04 05:09] LABS: Mean Corpuscular Volume 95.2 fL (83.0-100.0)
[2021-04-04 07:02] LABS: Alanine Aminotransferase 102 Units/L (7-52); Albumin 3.5 g/dL (3.5-5.7); Albumin/Globulin Ratio 1.5 (1.1-2.2); Alkaline Phosphatase 78 Units/L (34-104); Aspartate Amino Transferase 66 Units/L (13-39); BUN/Creatinine Ratio 37 (6-26); Bilirubin,Total 0.8 mg/dL (0.3-1.0); Blood Urea Nitrogen 22 mg/dL (6-20); Calcium 8.6 mg/dL (8.6-10.3); Carbon Dioxide 30 mEq/L (23-29); Chloride 98 mEq/L (98-107); Globulin 2.3 g/dL (2.4-3.5); Glucose 107 mg/dL (70-105); Magnesium 2.3 mg/dL (1.6-2.6); Osmolality,Calculated 284 (280-300); Phosphorous 3.5 mg/dL (2.7-4.5); Potassium 3.6 mEq/L (3.5-5.1); Sodium 135 mEq/L (136-145); Total Protein 5.8 g/dL (6.4-8.9); eGFR For African Americans > 60 (> 60); eGFR For Non-African Americans > 60 (> 60)
[2021-04-04] MEDS: FLUoxetine 20 MG CAPSULE PO SCH (07:33)
[2021-04-04] MEDS: *HR* HYDROcodone/Acet 5/325 mg TABLET PO PRN ×2 (07:33→15:37)
[2021-04-04] MEDS: Furosemide 20 MG/2 ML VIAL IVP SCH (07:34)
[2021-04-04] MEDS: Dexamethasone Sodium Phos/PF 10 MG/ML VIAL IVP SCH (07:34)
[2021-04-04] MEDS: *HR* Enoxaparin 40 MG/0.4 ML SYRINGE SQ SCH ×2 (12:28→19:30)
[2021-04-04] MEDS: Clinimix E 5%-15% SOLUTION 2,000 ML with MVI, adult with vitamin K 10 ML IVC SCH ×2 (16:09→16:30)
[2021-04-04] MEDS: Melatonin 3 MG TABLET PO SCH (19:30)
[2021-04-04] MEDS: Ondansetron 4 MG/2 ML VIAL IVP PRN (22:20)
[2021-04-05] MEDS: Insulin LISPRO 300 UNITS/3 ML VIAL SUBQ SCH ×7 (00:29→23:38)
[2021-04-05] MEDS: *HR* HYDROcodone/Acet 5/325 mg TABLET PO PRN ×3 (01:51→16:24)
[2021-04-05] MEDS: Morphine Sulfate 2 MG/ML SYRINGE IVP PRN ×5 (02:23→20:36)
[2021-04-05 04:43] LABS: VBG Ionized Calcium 1.17 mmol/L (1.15-1.35)
[2021-04-05 04:56] LABS: Basophils % 0.2 %; Eosinophils # 0.1 K/mcL (0.0-0.6); Eosinophils % 1.3 %; Hematocrit 38.5 % (35.3-44.9); Hemoglobin 12.7 g/dL (11.5-15.4); Immature Granulocytes % 2.5 % (0-4); Lymphocytes # 0.7 K/mcL (0.6-4.6); Lymphocytes % 6.7 %; Mean Corpuscular Hemoglobin 30.3 pg (28.0-33.3); Mean Corpuscular Volume 91.9 fL (83.0-100.0); Mean Platelet Volume 10.9 fL (9.4-12.4); Monocytes # 0.2 K/mcL (0.0-1.3); Monocytes % 2.2 %; Neutrophils # 8.5 K/mcL (1.6-8.9); Platelet Count 141 K/mcL (140-400); Red Blood Count 4.19 M/mcL (3.82-4.97); Red Cell Distribution Width 13.4 % (11.5-14.5); Segmented Neutrophils % 87.1 %; White Blood Count 9.8 K/mcL (4.3-11.1)
[2021-04-05 05:13] LABS: Alanine Aminotransferase 117 Units/L (7-52); Albumin 3.4 g/dL (3.5-5.7); Albumin/Globulin Ratio 1.4 (1.1-2.2); Alkaline Phosphatase 94 Units/L (34-104); Aspartate Amino Transferase 76 Units/L (13-39); BUN/Creatinine Ratio 38 (6-26); Bilirubin,Total 0.8 mg/dL (0.3-1.0); Blood Urea Nitrogen 21 mg/dL (6-20); Calcium 8.7 mg/dL (8.6-10.3); Carbon Dioxide 31 mEq/L (23-29); Chloride 98 mEq/L (98-107); Globulin 2.4 g/dL (2.4-3.5); Glucose 94 mg/dL (70-105); Magnesium 2.2 mg/dL (1.6-2.6); Osmolality,Calculated 279 (280-300); Phosphorous 4.1 mg/dL (2.7-4.5); Potassium 4.1 mEq/L (3.5-5.1); Sodium 133 mEq/L (136-145); Total Protein 5.8 g/dL (6.4-8.9); eGFR For African Americans > 60 (> 60); eGFR For Non-African Americans > 60 (> 60)
[2021-04-05] MEDS: Furosemide 20 MG/2 ML VIAL IVP SCH (07:44)
[2021-04-05] MEDS: FLUoxetine 20 MG CAPSULE PO SCH ×2 (07:45→11:12)
[2021-04-05] MEDS: Dexamethasone Sodium Phos/PF 10 MG/ML VIAL IVP SCH (07:45)
[2021-04-05] MEDS: *HR* Enoxaparin 40 MG/0.4 ML SYRINGE SQ SCH ×2 (08:01→20:36)
[2021-04-05] MEDS: Ondansetron 4 MG/2 ML VIAL IVP PRN (08:01)
[2021-04-05] MEDS: Fat Emulsion 250 ML IVPB SCH (16:23)
[2021-04-05] MEDS ORDERED: Clinimix E 5%-20% SOLUTION 2,000 ML with MVI, adult with vitamin K 10 ML IVC SCH (17:00)
[2021-04-05] MEDS: Clinimix E 5%-15% SOLUTION 2,000 ML with MVI, adult with vitamin K 10 ML IVC SCH (17:43)
[2021-04-05] MEDS: Melatonin 3 MG TABLET PO SCH (20:36)
[2021-04-06] MEDS: Morphine Sulfate 2 MG/ML SYRINGE IVP PRN ×6 (00:32→20:04)
[2021-04-06] MEDS: *HR* HYDROcodone/Acet 5/325 mg TABLET PO PRN ×2 (00:32→11:41)
[2021-04-06] MEDS: Insulin LISPRO 300 UNITS/3 ML VIAL SUBQ SCH ×5 (04:21→19:57)
[2021-04-06 05:59] LABS: Red Cell Distribution Width 13.3 % (11.5-14.5)
[2021-04-06 06:01] LABS: Basophils % 0.2 %; Eosinophils # 0.1 K/mcL (0.0-0.6); Eosinophils % 1.1 %; Immature Granulocytes % 2.7 % (0-4); Immature Platelets 7.9 % (1.1-6.1); Lymphocytes # 0.6 K/mcL (0.6-4.6); Lymphocytes % 6.1 %; Mean Corpuscular HGB Conc 32.4 g/dL (31.6-35.5); Mean Corpuscular Hemoglobin 29.8 pg (28.0-33.3); Mean Corpuscular Volume 91.8 fL (83.0-100.0); Mean Platelet Volume 11.6 fL (9.4-12.4); Monocytes # 0.2 K/mcL (0.0-1.3); Monocytes % 1.8 %; Neutrophils # 7.9 K/mcL (1.6-8.9); Platelet Count 112 K/mcL (140-400); Red Blood Count 4.03 M/mcL (3.82-4.97); Segmented Neutrophils % 88.1 %
[2021-04-06] MEDS: FLUoxetine 20 MG CAPSULE PO SCH (08:09)
[2021-04-06] MEDS: Furosemide 20 MG/2 ML VIAL IVP SCH (08:09)
[2021-04-06] MEDS: *HR* Enoxaparin 40 MG/0.4 ML SYRINGE SQ SCH (08:11)
[2021-04-06 08:45] LABS: BUN/Creatinine Ratio 34 (6-26); Blood Urea Nitrogen 18 mg/dL (6-20); Calcium 8.5 mg/dL (8.6-10.3); Carbon Dioxide 31 mEq/L (23-29); Chloride 97 mEq/L (98-107); Glucose 106 mg/dL (70-105); Magnesium 2.1 mg/dL (1.6-2.6); Osmolality,Calculated 280 (280-300); Phosphorous 4.2 mg/dL (2.7-4.5); Potassium 3.7 mEq/L (3.5-5.1); Sodium 134 mEq/L (136-145); eGFR For African Americans > 60 (> 60); eGFR For Non-African Americans > 60 (> 60)
[2021-04-06] MEDS ORDERED: *HR* LORazepam 2 MG/ML VIAL IVP ONE (09:30)
[2021-04-06] MEDS: Dexmedetomidine HCl 400 MCG/100 ML MLS IVC SCH ×2 (12:16→22:35)
[2021-04-06] MEDS ORDERED: Perflutren Lipid Microsphere 1.3 ML in 0.9 % Sodium Chloride 8.7 ML IVP PRN (16:34)
[2021-04-06] MEDS ORDERED: Clinimix E 5%-20% SOLUTION 2,000 ML with MVI, adult with vitamin K 10 ML IVC SCH (17:00)
[2021-04-06 19:02] LABS: Heparin anti-factor XA UFH 0.11 IU/mL (0.30-0.70); INR 1.2; Prothrombin Time 13.7 Seconds (9.4-12.1)
[2021-04-06 19:04] LABS: Activated Partial Thrombo Time 27.7 Seconds (26.0-36.0)
[2021-04-06] MEDS: Melatonin 3 MG TABLET PO SCH (19:39)
[2021-04-06] MEDS: Heparin 25,000UNIT/250ML 1/2NS 25,000 UNIT/250 ML IV.SOLN IVC SCH (20:06)
[2021-04-06] MEDS ORDERED: *HR* Heparin 5,000 UNIT/ML VIAL IVP PRN ×2 (21:00)
[2021-04-07] MEDS: Insulin LISPRO 300 UNITS/3 ML VIAL SUBQ SCH ×7 (00:07→23:25)
[2021-04-07 04:30] LABS: Basophils % 0.3 %; Eosinophils # 0.1 K/mcL (0.0-0.6); Eosinophils % 0.6 %; Hematocrit 36.7 % (35.3-44.9); Hemoglobin 12.1 g/dL (11.5-15.4); Immature Platelets 8.9 % (1.1-6.1); Lymphocytes # 0.8 K/mcL (0.6-4.6); Lymphocytes % 6.6 %; Mean Corpuscular Hemoglobin 30.3 pg (28.0-33.3); Mean Corpuscular Volume 91.8 fL (83.0-100.0); Mean Platelet Volume 11.7 fL (9.4-12.4); Monocytes # 0.2 K/mcL (0.0-1.3); Monocytes % 1.9 %; Neutrophils # 10.2 K/mcL (1.6-8.9); Nucleated Red Blood Cells 0.2 /100 WBC (0); Platelet Count 103 K/mcL (140-400); Red Cell Distribution Width 13.2 % (11.5-14.5); Segmented Neutrophils % 87.6 %; White Blood Count 11.6 K/mcL (4.3-11.1)
[2021-04-07 04:43] LABS: BUN/Creatinine Ratio 33 (6-26); Blood Urea Nitrogen 18 mg/dL (6-20); Calcium 8.7 mg/dL (8.6-10.3); Carbon Dioxide 32 mEq/L (23-29); Chloride 101 mEq/L (98-107); Glucose 141 mg/dL (70-105); Magnesium 2.2 mg/dL (1.6-2.6); Osmolality,Calculated 278 (280-300); Phosphorous 4.5 mg/dL (2.7-4.5); Potassium 4.5 mEq/L (3.5-5.1); Sodium 132 mEq/L (136-145); eGFR For African Americans > 60 (> 60); eGFR For Non-African Americans > 60 (> 60)
[2021-04-07] MEDS: Furosemide 20 MG/2 ML VIAL IVP SCH (08:08)
[2021-04-07] MEDS: FLUoxetine 20 MG CAPSULE PO SCH (08:08)
[2021-04-07] MEDS: Cholecalciferol (D-3) 1,000 UNIT (25MCG) TABLET PO SCH (08:08)
[2021-04-07] MEDS ORDERED: *HR* LORazepam 0.5 MG TABLET PO PRN (13:27)
[2021-04-07] MEDS: Heparin 25,000UNIT/250ML 1/2NS 25,000 UNIT/250 ML IV.SOLN IVC SCH ×2 (15:32→23:29)
[2021-04-07] MEDS: Fat Emulsion 250 ML IVPB SCH (16:08)
[2021-04-07] MEDS: Ondansetron 4 MG/2 ML VIAL IVP PRN ×2 (16:53→21:27)
[2021-04-07] MEDS ORDERED: Clinimix E 5%-20% SOLUTION 2,000 ML with MVI, adult with vitamin K 10 ML IVC SCH (17:00)
[2021-04-07] MEDS: Clinimix E 5%-15% SOLUTION 2,000 ML with MVI, adult with vitamin K 10 ML IVC SCH (18:57)
[2021-04-07] MEDS ORDERED: Dexmedetomidine HCl 400 MCG/100 ML MLS IVC ONE (19:56)
[2021-04-07] MEDS: Dexmedetomidine HCl 400 MCG/100 ML MLS IVC SCH (20:52)
[2021-04-07] MEDS: Melatonin 3 MG TABLET PO SCH (21:27)
[2021-04-07] MEDS: Ipratropium 1 PUFF INHALER IH PRN (22:14)
[2021-04-07 23:29] LABS: ABG Base Excess 4 mEq/L (-2 to 3); ABG HCO3 28 mEq/L (21-27); ABG Oxygen Saturation 84 % (95-98); ABG PCO2 41 mmHg (35-45); ABG PH 7.44 pH Units (7.32-7.45); ABG PO2 47 mmHg (85-104); ABG TCO2 30 mEq/L (20-26); Blood Gas VT 450 cc
[2021-04-07] MEDS ORDERED: Artificial Tears SOLN 15 ML BOTTLE BOTH EYES PRN (23:35)
[2021-04-07] MEDS ORDERED: 0.9 % Sodium Chloride 1,000 ML ONE (23:35)
[2021-04-07] MEDS ORDERED: *HR* Propofol 200 MG/20 ML VIAL IVP ONE (23:49)
[2021-04-07] MEDS ORDERED: *HR* Rocuronium Bromide 50 MG/5 ML VIAL ONE (23:49)
[2021-04-07] MEDS ORDERED: *HR* Succinylcholine 200 MG/10 ML VIAL IVP ONE (23:49)
[2021-04-08] MEDS: FentaNYL (PF) 1,000 MCG/100 ML IV.SOLN IVC SCH ×3 (00:53→15:05)
[2021-04-08] MEDS: Midazolam HCl 50 MG/100 ML IV.SOLN IVC SCH ×2 (00:54→11:51)
[2021-04-08] MEDS: Norepinephrine 4 MG/254 ML IV.SOLN IVC SCH ×3 (00:55→17:46)
[2021-04-08] MEDS: Cisatracurium 200 MG in 0.9 % Sodium Chloride 180 ML IVC SCH ×2 (00:55→18:53)
[2021-04-08 02:17] LABS: ABG Base Excess 1 mEq/L (-2 to 3); ABG HCO3 33 mEq/L (21-27); ABG Oxygen Saturation 86 % (95-98); ABG PCO2 82 mmHg (35-45); ABG PH 7.21 pH Units (7.32-7.45); ABG PO2 65 mmHg (85-104); ABG TCO2 35 mEq/L (20-26); Blood Gas VT 400 cc
[2021-04-08 04:00] LABS: Basophils # 0.1 K/mcL (0.0-0.2); Basophils % 0.3 %; Eosinophils # 0.1 K/mcL (0.0-0.6); Eosinophils % 0.5 %; Hematocrit 41.5 % (35.3-44.9); Hemoglobin 13.6 g/dL (11.5-15.4); Immature Granulocytes % 2.4 % (0-4); Immature Platelets 8.1 % (1.1-6.1); Lymphocytes # 0.2 K/mcL (0.6-4.6); Lymphocytes % 1.6 %; Mean Corpuscular HGB Conc 32.8 g/dL (31.6-35.5); Mean Corpuscular Hemoglobin 30.6 pg (28.0-33.3); Mean Corpuscular Volume 93.5 fL (83.0-100.0); Mean Platelet Volume 11.3 fL (9.4-12.4); Monocytes # 0.2 K/mcL (0.0-1.3); Monocytes % 1.5 %; Nucleated Red Blood Cells 0.3 /100 WBC (0); Platelet Count 115 K/mcL (140-400); Red Blood Count 4.44 M/mcL (3.82-4.97); Segmented Neutrophils % 93.7 %
[2021-04-08] MEDS ORDERED: *HR* Midazolam HCl 5 MG/5 ML VIAL IVP ONE (04:00)
[2021-04-08] MEDS ORDERED: *HR* Rocuronium Bromide 50 MG/5 ML VIAL IVP ONE (04:00)
[2021-04-08 04:03] LABS: Neutrophils # 14.1 K/mcL (1.6-8.9)
[2021-04-08 04:19] LABS: BUN/Creatinine Ratio 28 (6-26); Blood Urea Nitrogen 18 mg/dL (6-20); Calcium 8.7 mg/dL (8.6-10.3); Carbon Dioxide 29 mEq/L (23-29); Chloride 95 mEq/L (98-107); Glucose 169 mg/dL (70-105); Magnesium 1.9 mg/dL (1.6-2.6); Osmolality,Calculated 280 (280-300); Phosphorous 7.1 mg/dL (2.7-4.5); Potassium 4.8 mEq/L (3.5-5.1); Sodium 132 mEq/L (136-145); eGFR For African Americans > 60 (> 60); eGFR For Non-African Americans > 60 (> 60)
[2021-04-08 04:32] LABS: ABG Base Excess 3 mEq/L (-2 to 3); ABG HCO3 31 mEq/L (21-27); ABG Oxygen Saturation 96 % (95-98); ABG PCO2 62 mmHg (35-45); ABG PH 7.31 pH Units (7.32-7.45); ABG PO2 95 mmHg (85-104); ABG TCO2 33 mEq/L (20-26); Blood Gas VT 400 cc
[2021-04-08] MEDS: Insulin LISPRO 300 UNITS/3 ML VIAL SUBQ SCH ×6 (04:36→23:36)
[2021-04-08] MEDS: Artificial Tears SOLN 15 ML BOTTLE BOTH EYES SCH ×7 (04:36→23:36)
[2021-04-08] MEDS: Dexmedetomidine HCl 400 MCG/100 ML MLS IVC SCH ×2 (05:12→13:40)
[2021-04-08] MEDS: Chlorhexidine Rinse 15 ML MOUTHWASH MM SCH ×2 (07:53→19:47)
[2021-04-08] MEDS: Furosemide 20 MG/2 ML VIAL IVP SCH (07:54)
[2021-04-08] MEDS: Cholecalciferol (D-3) 1,000 UNIT (25MCG) TABLET PO SCH (07:54)
[2021-04-08] MEDS: FLUoxetine 20 MG CAPSULE PO SCH (07:54)
[2021-04-08] MEDS: Pantoprazole 40 MG VIAL IVP SCH (07:54)
[2021-04-08] MEDS: Ipratropium 1 PUFF INHALER IH PRN (08:26)
[2021-04-08] MEDS: levoFLOXacin 750 MG/150 ML 750 MG/150 ML BAG IVPB SCH (11:36)
[2021-04-08] MEDS: Heparin 25,000UNIT/250ML 1/2NS 25,000 UNIT/250 ML IV.SOLN IVC SCH (11:37)
[2021-04-08 11:59] LABS: ABG Base Excess 5 mEq/L (-2 to 3); ABG Chloride 94 mEq/L (98-107); ABG Glucose 166 mg/dL (60-95); ABG HCO3 35 mEq/L (21-27); ABG Ionized Calcium 1.17 mmol/L (1.15-1.35); ABG Oxygen Saturation 97 % (95-98); ABG PCO2 75 mmHg (35-45); ABG PH 7.28 pH Units (7.32-7.45); ABG PO2 106 mmHg (85-104); ABG TCO2 37 mEq/L (20-26); Blood Gas Modality ASSIST CONTROL; Blood Gas VT 360 cc
[2021-04-08] MEDS ORDERED: SODIUM PHOSPHATE IV SCH (17:00)
[2021-04-08] MEDS ORDERED: CLINIMIX IV SCH (17:00)
[2021-04-08] MEDS ORDERED: [UNRECOGNIZED DRUG - OTHER] IV SCH (17:00)
[2021-04-08 17:23] LABS: Bilirubin,Urine Negative (Negative); Blood,Urine Negative (Negative); Clarity,Urine Clear (Clear); Color,Urine Yellow (Yellow); Glucose,Urine (UA) Normal (Normal); Ketones,Urine Negative (Negative); Leukocyte Esterase,Urine Negative (Negative); Nitrite,Urine Negative (Negative); PH,Urine 5.5 pH Units (5.0-8.0); Protein,Urine Trace mg/dL (Neg-Trace); Specific Gravity,Urine > 1.030 (1.010-1.025); Urobilinogen,Urine Normal (Normal)
[2021-04-08] MEDS: Melatonin 3 MG TABLET PO SCH (19:47)
[2021-04-08 20:58] LABS: ABG Base Excess 5 mEq/L (-2 to 3); ABG HCO3 34 mEq/L (21-27); ABG Oxygen Saturation 89 % (95-98); ABG PCO2 75 mmHg (35-45); ABG PH 7.27 pH Units (7.32-7.45); ABG PO2 68 mmHg (85-104); ABG TCO2 37 mEq/L (20-26); Blood Gas VT 360 cc
[2021-04-09] MEDS: Norepinephrine 4 MG/254 ML IV.SOLN IVC SCH ×4 (00:37→23:53)
[2021-04-09] MEDS: Dexmedetomidine HCl 400 MCG/100 ML MLS IVC SCH ×3 (00:38→20:17)
[2021-04-09] MEDS: FentaNYL (PF) 1,000 MCG/100 ML IV.SOLN IVC SCH ×3 (00:39→20:17)
[2021-04-09 03:42] LABS: Basophils % 0.2 %; Eosinophils # 0.1 K/mcL (0.0-0.6); Eosinophils % 0.9 %; Hematocrit 38.4 % (35.3-44.9); Hemoglobin 12.5 g/dL (11.5-15.4); Immature Granulocytes % 0.8 % (0-4); Immature Platelets 6.8 % (1.1-6.1); Lymphocytes # 0.3 K/mcL (0.6-4.6); Lymphocytes % 2.5 %; Mean Corpuscular HGB Conc 32.6 g/dL (31.6-35.5); Mean Corpuscular Hemoglobin 30.6 pg (28.0-33.3); Mean Corpuscular Volume 94.1 fL (83.0-100.0); Mean Platelet Volume 10.9 fL (9.4-12.4); Monocytes # 0.2 K/mcL (0.0-1.3); Monocytes % 1.3 %; Neutrophils # 10.5 K/mcL (1.6-8.9); Nucleated Red Blood Cells 0.2 /100 WBC (0); Platelet Count 101 K/mcL (140-400); Red Blood Count 4.08 M/mcL (3.82-4.97); Red Cell Distribution Width 14.3 % (11.5-14.5); Segmented Neutrophils % 94.3 %; White Blood Count 11.1 K/mcL (4.3-11.1)
[2021-04-09 03:54] LABS: ABG Base Excess 5 mEq/L (-2 to 3); ABG HCO3 35 mEq/L (21-27); ABG Oxygen Saturation 94 % (95-98); ABG PCO2 84 mmHg (35-45); ABG PH 7.23 pH Units (7.32-7.45); ABG PO2 87 mmHg (85-104); ABG TCO2 38 mEq/L (20-26); Blood Gas Modality ASSIST CONTROL; Blood Gas VT 360 cc
[2021-04-09 04:04] LABS: BUN/Creatinine Ratio 29 (6-26); Blood Urea Nitrogen 16 mg/dL (6-20); Calcium 8.2 mg/dL (8.6-10.3); Carbon Dioxide 33 mEq/L (23-29); Chloride 95 mEq/L (98-107); Glucose 157 mg/dL (70-105); Osmolality,Calculated 272 (280-300); Phosphorous 2.3 mg/dL (2.7-4.5); Potassium 5.2 mEq/L (3.5-5.1); Sodium 129 mEq/L (136-145); eGFR For African Americans > 60 (> 60); eGFR For Non-African Americans > 60 (> 60)
[2021-04-09] MEDS: Insulin LISPRO 300 UNITS/3 ML VIAL SUBQ SCH ×6 (05:04→23:45)
[2021-04-09] MEDS: Artificial Tears SOLN 15 ML BOTTLE BOTH EYES SCH ×6 (05:04→23:41)
[2021-04-09] MEDS ORDERED: Furosemide 20 MG/2 ML VIAL IVP SCH (09:00)
[2021-04-09] MEDS: Chlorhexidine Rinse 15 ML MOUTHWASH MM SCH ×2 (09:22→19:58)
[2021-04-09] MEDS: levoFLOXacin 750 MG/150 ML 750 MG/150 ML BAG IVPB SCH (09:25)
[2021-04-09] MEDS: Pantoprazole 40 MG VIAL IVP SCH (09:27)
[2021-04-09] MEDS: Cholecalciferol (D-3) 1,000 UNIT (25MCG) TABLET PO SCH (09:27)
[2021-04-09] MEDS: FLUoxetine 20 MG CAPSULE PO SCH (09:27)
[2021-04-09] MEDS: Midazolam HCl 50 MG/100 ML IV.SOLN IVC SCH (09:37)
[2021-04-09] MEDS: Cisatracurium 200 MG in 0.9 % Sodium Chloride 180 ML IVC SCH (09:38)
[2021-04-09] MEDS: Heparin 25,000UNIT/250ML 1/2NS 25,000 UNIT/250 ML IV.SOLN IVC SCH ×2 (09:38→19:58)
[2021-04-09] MEDS ORDERED: Calcium Gluconate 1gm/50mL 1 GM/50 ML BAG IVPB PRN (10:56)
[2021-04-09 16:51] LABS: Basophils % 0.2 %; Eosinophils # 0.2 K/mcL (0.0-0.6); Eosinophils % 1.8 %; Hematocrit 33.1 % (35.3-44.9); Hemoglobin 10.9 g/dL (11.5-15.4); Immature Granulocytes % 1.9 % (0-4); Immature Platelets 7.4 % (1.1-6.1); Lymphocytes # 0.5 K/mcL (0.6-4.6); Lymphocytes % 5.2 %; Mean Corpuscular HGB Conc 32.9 g/dL (31.6-35.5); Mean Corpuscular Hemoglobin 30.5 pg (28.0-33.3); Mean Corpuscular Volume 92.7 fL (83.0-100.0); Mean Platelet Volume 10.6 fL (9.4-12.4); Monocytes # 0.3 K/mcL (0.0-1.3); Monocytes % 2.9 %; Neutrophils # 7.8 K/mcL (1.6-8.9); Red Blood Count 3.57 M/mcL (3.82-4.97); Red Cell Distribution Width 13.9 % (11.5-14.5); White Blood Count 8.9 K/mcL (4.3-11.1)
[2021-04-09] MEDS ORDERED: Clinimix E 5%-15% SOLUTION 2,000 ML with MVI, adult with vitamin K 10 ML, ZN/CU/MN/SE... IVC SCH (17:00)
[2021-04-09 17:02] LABS: Platelet Count 99 K/mcL (140-400)
[2021-04-09 17:08] LABS: BUN/Creatinine Ratio 32 (6-26); Blood Urea Nitrogen 24 mg/dL (6-20); Calcium 7.9 mg/dL (8.6-10.3); Carbon Dioxide 34 mEq/L (23-29); Chloride 97 mEq/L (98-107); Glucose 142 mg/dL (70-105); Osmolality,Calculated 282 (280-300); Potassium 5.3 mEq/L (3.5-5.1); Sodium 133 mEq/L (136-145); eGFR For African Americans > 60 (> 60); eGFR For Non-African Americans > 60 (> 60)
[2021-04-09 17:19] LABS: Platelet Estimate Slight Decrease (Normal)
[2021-04-09] MEDS: Melatonin 3 MG TABLET PO SCH (19:59)
[2021-04-10] MEDS: Cisatracurium 200 MG in 0.9 % Sodium Chloride 180 ML IVC SCH ×2 (01:30→16:12)
[2021-04-10 03:41] LABS: Hemoglobin 11.9 g/dL (11.5-15.4); Red Cell Distribution Width 14.4 % (11.5-14.5)
[2021-04-10 03:43] LABS: Basophils % 0.2 %; Eosinophils # 0.1 K/mcL (0.0-0.6); Eosinophils % 0.5 %; Hematocrit 36.4 % (35.3-44.9); Immature Platelets 7.5 % (1.1-6.1); Lymphocytes # 0.2 K/mcL (0.6-4.6); Lymphocytes % 1.6 %; Mean Corpuscular HGB Conc 32.7 g/dL (31.6-35.5); Mean Corpuscular Hemoglobin 30.6 pg (28.0-33.3); Mean Corpuscular Volume 93.6 fL (83.0-100.0); Mean Platelet Volume 11.3 fL (9.4-12.4); Monocytes # 0.4 K/mcL (0.0-1.3); Monocytes % 2.8 %; Neutrophils # 12.9 K/mcL (1.6-8.9); Platelet Count 110 K/mcL (140-400); Red Blood Count 3.89 M/mcL (3.82-4.97); Segmented Neutrophils % 92.9 %; White Blood Count 13.9 K/mcL (4.3-11.1)
[2021-04-10 03:45] LABS: ABG Base Excess 3 mEq/L (-2 to 3); ABG HCO3 34 mEq/L (21-27); ABG Oxygen Saturation 92 % (95-98); ABG PCO2 80 mmHg (35-45); ABG PH 7.23 pH Units (7.32-7.45); ABG PO2 79 mmHg (85-104); ABG TCO2 36 mEq/L (20-26); Blood Gas Modality ASSIST CONTROL; Blood Gas VT 360 cc
[2021-04-10] MEDS: Artificial Tears SOLN 15 ML BOTTLE BOTH EYES SCH ×6 (04:09→23:16)
[2021-04-10] MEDS: Insulin LISPRO 300 UNITS/3 ML VIAL SUBQ SCH ×5 (04:10→19:51)
[2021-04-10 04:56] LABS: Alanine Aminotransferase 66 Units/L (7-52); Albumin 3.2 g/dL (3.5-5.7); Albumin/Globulin Ratio 1.1 (1.1-2.2); Alkaline Phosphatase 115 Units/L (34-104); Aspartate Amino Transferase 51 Units/L (13-39); BUN/Creatinine Ratio 34 (6-26); Bilirubin,Total 0.7 mg/dL (0.3-1.0); Blood Urea Nitrogen 22 mg/dL (6-20); Calcium 8.1 mg/dL (8.6-10.3); Carbon Dioxide 31 mEq/L (23-29); Chloride 92 mEq/L (98-107); Globulin 2.8 g/dL (2.4-3.5); Glucose 242 mg/dL (70-105); Osmolality,Calculated 271 (280-300); Phosphorous 2.4 mg/dL (2.7-4.5); Potassium 5.6 mEq/L (3.5-5.1); Sodium 125 mEq/L (136-145); eGFR For African Americans > 60 (> 60); eGFR For Non-African Americans > 60 (> 60)
[2021-04-10] MEDS: levoFLOXacin 750 MG/150 ML 750 MG/150 ML BAG IVPB SCH (08:55)
[2021-04-10] MEDS: Dexmedetomidine HCl 400 MCG/100 ML MLS IVC SCH ×4 (08:55→23:45)
[2021-04-10] MEDS: Furosemide 20 MG/2 ML VIAL IVP SCH (08:56)
[2021-04-10] MEDS: FentaNYL (PF) 1,000 MCG/100 ML IV.SOLN IVC SCH ×2 (08:56→17:17)
[2021-04-10] MEDS: Pantoprazole 40 MG VIAL IVP SCH (08:57)
[2021-04-10] MEDS: Cholecalciferol (D-3) 1,000 UNIT (25MCG) TABLET PO SCH (08:57)
[2021-04-10] MEDS: Chlorhexidine Rinse 15 ML MOUTHWASH MM SCH ×2 (08:58→19:50)
[2021-04-10] MEDS: Heparin 25,000UNIT/250ML 1/2NS 25,000 UNIT/250 ML IV.SOLN IVC SCH (09:03)
[2021-04-10] MEDS: FLUoxetine 20 MG CAPSULE PO SCH (09:47)
[2021-04-10 13:37] LABS: BUN/Creatinine Ratio 35 (6-26); Blood Urea Nitrogen 28 mg/dL (6-20); Carbon Dioxide 32 mEq/L (23-29); Chloride 92 mEq/L (98-107); Glucose 91 mg/dL (70-105); Osmolality,Calculated 267 (280-300); Potassium 5.6 mEq/L (3.5-5.1); Sodium 126 mEq/L (136-145); eGFR For African Americans > 60 (> 60); eGFR For Non-African Americans > 60 (> 60)
[2021-04-10 13:37] LABS: Bacteria,Urine Moderate per hpf (None-Few); Bilirubin,Urine Negative (Negative); Blood,Urine Moderate (Negative); Clarity,Urine Clear (Clear); Color,Urine Yellow (Yellow); Glucose,Urine (UA) Normal (Normal); Granular Casts,Urine Few per lpf (None Seen); Hyaline Casts,Urine Many per lpf (None Seen); Ketones,Urine Negative (Negative); Leukocyte Esterase,Urine Negative (Negative); Mucus,Urine Few per lpf (None-Few); Nitrite,Urine Negative (Negative); PH,Urine 5.5 pH Units (5.0-8.0); Protein,Urine Negative (Neg-Trace); RBC,Urine 50-100 per hpf (0-3); Squamous Epithelial Cell,Urine Few per hpf (None-Few); Urobilinogen,Urine Normal (Normal); WBC,Urine 15-30 per hpf (0-3)
[2021-04-10 13:39] LABS: Potassium,Urine 35.8 mEq/L; Sodium, Urine < 10.0 mEq/L
[2021-04-10] MEDS: Ipratropium/Albuterol Neb 3 ML IH SCH ×2 (16:59→20:52)
[2021-04-10] MEDS ORDERED: Clinimix E 5%-15% SOLUTION 2,000 ML with MVI, adult with vitamin K 10 ML, ZN/CU/MN/SE... IVC SCH (17:00)
[2021-04-10] MEDS ORDERED: Clinimix 5%-20% SOLUTION 2,000 ML, Parenteral Amino Acid 10% 0 ML with MVI, adult with... IVC SCH (17:00)
[2021-04-10] MEDS ORDERED: Clinimix 5%-20% SOLUTION 2,000 ML with MVI, adult with vitamin K 10 ML, Sodium Phosph... IVC SCH (17:00)
[2021-04-10] MEDS: Midazolam HCl 50 MG/100 ML IV.SOLN IVC SCH (17:17)
[2021-04-10] MEDS: Norepinephrine 4 MG/254 ML IV.SOLN IVC SCH ×2 (19:50→20:05)
[2021-04-10] MEDS: Melatonin 3 MG TABLET PO SCH (19:52)
[2021-04-11] MEDS: Insulin LISPRO 300 UNITS/3 ML VIAL SUBQ SCH ×6 (00:10→19:54)
[2021-04-11] MEDS: Ipratropium/Albuterol Neb 3 ML IH SCH ×6 (00:29→21:02)
[2021-04-11] MEDS: FentaNYL (PF) 1,000 MCG/100 ML IV.SOLN IVC SCH ×4 (01:54→22:03)
[2021-04-11] MEDS: Cisatracurium 200 MG in 0.9 % Sodium Chloride 180 ML IVC SCH ×3 (02:53→22:50)
[2021-04-11] MEDS: Norepinephrine 4 MG/254 ML IV.SOLN IVC SCH ×3 (03:05→19:53)
[2021-04-11] MEDS: Heparin 25,000UNIT/250ML 1/2NS 25,000 UNIT/250 ML IV.SOLN IVC SCH ×2 (03:05→10:02)
[2021-04-11] MEDS: Artificial Tears SOLN 15 ML BOTTLE BOTH EYES SCH ×5 (03:05→19:53)
[2021-04-11] MEDS: Dexmedetomidine HCl 400 MCG/100 ML MLS IVC SCH ×5 (03:46→23:21)
[2021-04-11 04:00] LABS: Alanine Aminotransferase 56 Units/L (7-52); Albumin 2.9 g/dL (3.5-5.7); Albumin/Globulin Ratio 1.2 (1.1-2.2); Alkaline Phosphatase 99 Units/L (34-104); Aspartate Amino Transferase 40 Units/L (13-39); BUN/Creatinine Ratio 40 (6-26); Bilirubin,Total 0.7 mg/dL (0.3-1.0); Blood Urea Nitrogen 35 mg/dL (6-20); Calcium 8.1 mg/dL (8.6-10.3); Carbon Dioxide 31 mEq/L (23-29); Chloride 92 mEq/L (98-107); Globulin 2.5 g/dL (2.4-3.5); Glucose 169 mg/dL (70-105); Magnesium 2.1 mg/dL (1.6-2.6); Osmolality,Calculated 272 (280-300); Phosphorous 2.7 mg/dL (2.7-4.5); Potassium 5.2 mEq/L (3.5-5.1); Sodium 125 mEq/L (136-145); Total Protein 5.4 g/dL (6.4-8.9); eGFR For African Americans > 60 (> 60); eGFR For Non-African Americans > 60 (> 60)
[2021-04-11 04:19] LABS: Monocytes % 4.8 %; Red Cell Distribution Width 14.2 % (11.5-14.5)
[2021-04-11 04:21] LABS: Basophils % 0.4 %; Eosinophils # 0.3 K/mcL (0.0-0.6); Eosinophils % 2.7 %; Hematocrit 28.6 % (35.3-44.9); Hemoglobin 9.6 g/dL (11.5-15.4); Immature Platelets 7.2 % (1.1-6.1); Lymphocytes # 0.8 K/mcL (0.6-4.6); Lymphocytes % 7.4 %; Mean Corpuscular HGB Conc 33.6 g/dL (31.6-35.5); Mean Corpuscular Hemoglobin 30.5 pg (28.0-33.3); Mean Corpuscular Volume 90.8 fL (83.0-100.0); Monocytes # 0.5 K/mcL (0.0-1.3); Neutrophils # 8.5 K/mcL (1.6-8.9); Platelet Count 104 K/mcL (140-400); Red Blood Count 3.15 M/mcL (3.82-4.97); Segmented Neutrophils % 79.7 %; White Blood Count 10.7 K/mcL (4.3-11.1)
[2021-04-11 05:26] LABS: ABG Base Excess 4 mEq/L (-2 to 3); ABG HCO3 29 mEq/L (21-27); ABG Oxygen Saturation 99 % (95-98); ABG PCO2 47 mmHg (35-45); ABG PO2 148 mmHg (85-104); ABG TCO2 31 mEq/L (20-26); Blood Gas Modality ASSIST CONTROL; Blood Gas VT 450 cc
[2021-04-11] MEDS: Chlorhexidine Rinse 15 ML MOUTHWASH MM SCH ×2 (08:28→20:22)
[2021-04-11] MEDS: levoFLOXacin 750 MG/150 ML 750 MG/150 ML BAG IVPB SCH (08:28)
[2021-04-11] MEDS: Furosemide 20 MG/2 ML VIAL IVP SCH (08:29)
[2021-04-11] MEDS: Cholecalciferol (D-3) 1,000 UNIT (25MCG) TABLET PO SCH (08:31)
[2021-04-11] MEDS: FLUoxetine 20 MG CAPSULE PO SCH (08:31)
[2021-04-11] MEDS: Pantoprazole 40 MG VIAL IVP SCH (08:31)
[2021-04-11] MEDS: *HR* Enoxaparin 60 MG/0.6 ML SYRINGE SQ SCH (16:43)
[2021-04-11] MEDS ORDERED: Clinimix 5%-20% SOLUTION 2,000 ML with MVI, adult with vitamin K 10 ML, Sodium Phosph... IVC SCH (17:00)
[2021-04-11] MEDS ORDERED: Clinimix E 5%-15% SOLUTION 2,000 ML with MVI, adult with vitamin K 10 ML, ZN/CU/MN/SE... IVC SCH (17:00)
[2021-04-11 18:10] LABS: BUN/Creatinine Ratio 44 (6-26); Blood Urea Nitrogen 32 mg/dL (6-20); Calcium 8.4 mg/dL (8.6-10.3); Carbon Dioxide 29 mEq/L (23-29); Chloride 96 mEq/L (98-107); Glucose 181 mg/dL (70-105); Osmolality,Calculated 283 (280-300); Potassium 4.2 mEq/L (3.5-5.1); Sodium 131 mEq/L (136-145); eGFR For African Americans > 60 (> 60); eGFR For Non-African Americans > 60 (> 60)
[2021-04-11] MEDS: Melatonin 3 MG TABLET PO SCH (19:58)
[2021-04-11] MEDS: Midazolam HCl 50 MG/100 ML IV.SOLN IVC SCH (21:21)
[2021-04-12] MEDS: Ipratropium/Albuterol Neb 3 ML IH SCH ×7 (00:58→23:33)
[2021-04-12] MEDS: Dexmedetomidine HCl 400 MCG/100 ML MLS IVC SCH ×4 (01:57→20:18)
[2021-04-12] MEDS: Insulin LISPRO 300 UNITS/3 ML VIAL SUBQ SCH ×7 (03:37→23:51)
[2021-04-12] MEDS: Artificial Tears SOLN 15 ML BOTTLE BOTH EYES SCH ×6 (03:37→20:16)
[2021-04-12 04:25] LABS: Alanine Aminotransferase 46 Units/L (7-52); Albumin 3.1 g/dL (3.5-5.7); Albumin/Globulin Ratio 1.2 (1.1-2.2); Alkaline Phosphatase 100 Units/L (34-104); Aspartate Amino Transferase 35 Units/L (13-39); BUN/Creatinine Ratio 49 (6-26); Bilirubin,Total 0.5 mg/dL (0.3-1.0); Blood Urea Nitrogen 28 mg/dL (6-20); Calcium 8.7 mg/dL (8.6-10.3); Carbon Dioxide 28 mEq/L (23-29); Chloride 95 mEq/L (98-107); Globulin 2.6 g/dL (2.4-3.5); Glucose 187 mg/dL (70-105); Magnesium 2.1 mg/dL (1.6-2.6); Osmolality,Calculated 280 (280-300); Phosphorous 4.1 mg/dL (2.7-4.5); Potassium 4.2 mEq/L (3.5-5.1); Sodium 130 mEq/L (136-145); Total Protein 5.7 g/dL (6.4-8.9); eGFR For African Americans > 60 (> 60); eGFR For Non-African Americans > 60 (> 60)
[2021-04-12 04:58] LABS: ABG Base Excess 4 mEq/L (-2 to 3); ABG HCO3 32 mEq/L (21-27); ABG Oxygen Saturation 97 % (95-98); ABG PCO2 65 mmHg (35-45); ABG PO2 103 mmHg (85-104); ABG TCO2 34 mEq/L (20-26); Blood Gas Modality ASSIST CONTROL; Blood Gas VT 450 cc
[2021-04-12] MEDS: *HR* Enoxaparin 60 MG/0.6 ML SYRINGE SQ SCH ×2 (05:21→16:54)
[2021-04-12] MEDS: FentaNYL (PF) 1,000 MCG/100 ML IV.SOLN IVC SCH ×4 (05:22→22:57)
[2021-04-12] MEDS: Chlorhexidine Rinse 15 ML MOUTHWASH MM SCH ×2 (07:13→20:17)
[2021-04-12] MEDS: Furosemide 20 MG/2 ML VIAL IVP SCH (07:14)
[2021-04-12] MEDS: levoFLOXacin 750 MG/150 ML 750 MG/150 ML BAG IVPB SCH (07:14)
[2021-04-12] MEDS: Pantoprazole 40 MG VIAL IVP SCH (07:14)
[2021-04-12] MEDS: Norepinephrine 4 MG/254 ML IV.SOLN IVC SCH ×2 (07:15→09:45)
[2021-04-12] MEDS: Cholecalciferol (D-3) 1,000 UNIT (25MCG) TABLET PO SCH (07:16)
[2021-04-12] MEDS: FLUoxetine 20 MG CAPSULE PO SCH (07:16)
[2021-04-12] MEDS: Cisatracurium 200 MG in 0.9 % Sodium Chloride 180 ML IVC SCH ×2 (07:27→16:29)
[2021-04-12] MEDS: Midazolam HCl 50 MG/100 ML IV.SOLN IVC SCH (12:52)
[2021-04-12] MEDS: Vancomycin 2,000 MG/520 ML IV.SOLN IVPB SCH (13:11)
[2021-04-12] MEDS ORDERED: Clinimix E 5%-15% SOLUTION 2,000 ML with MVI, adult with vitamin K 10 ML, ZN/CU/MN/SE... IVC SCH (17:00)
[2021-04-12] MEDS: Melatonin 3 MG TABLET PO SCH (20:18)
[2021-04-13] MEDS: Artificial Tears SOLN 15 ML BOTTLE BOTH EYES SCH ×7 (00:18→23:22)
[2021-04-13] MEDS: Cisatracurium 200 MG in 0.9 % Sodium Chloride 180 ML IVC SCH ×3 (01:27→17:51)
[2021-04-13] MEDS: Vancomycin 2,000 MG/520 ML IV.SOLN IVPB SCH ×2 (01:29→13:09)
[2021-04-13] MEDS: Dexmedetomidine HCl 400 MCG/100 ML MLS IVC SCH ×4 (02:28→21:26)
[2021-04-13] MEDS: Ipratropium/Albuterol Neb 3 ML IH SCH ×5 (03:40→19:56)
[2021-04-13 03:49] LABS: VBG Ionized Calcium 1.26 mmol/L (1.15-1.35)
[2021-04-13 03:52] LABS: Alanine Aminotransferase 45 Units/L (7-52); Albumin 2.9 g/dL (3.5-5.7); Albumin/Globulin Ratio 1.2 (1.1-2.2); Alkaline Phosphatase 109 Units/L (34-104); Aspartate Amino Transferase 43 Units/L (13-39); BUN/Creatinine Ratio 58 (6-26); Bilirubin,Total 0.5 mg/dL (0.3-1.0); Blood Urea Nitrogen 28 mg/dL (6-20); Calcium 8.4 mg/dL (8.6-10.3); Carbon Dioxide 32 mEq/L (23-29); Chloride 98 mEq/L (98-107); Globulin 2.5 g/dL (2.4-3.5); Glucose 131 mg/dL (70-105); Magnesium 2.2 mg/dL (1.6-2.6); Osmolality,Calculated 279 (280-300); Phosphorous 4.6 mg/dL (2.7-4.5); Potassium 5.6 mEq/L (3.5-5.1); Sodium 131 mEq/L (136-145); Total Protein 5.4 g/dL (6.4-8.9); eGFR For African Americans > 60 (> 60); eGFR For Non-African Americans > 60 (> 60)
[2021-04-13 04:39] LABS: Basophils % 0.4 %; Mean Corpuscular Hemoglobin 31.3 pg (28.0-33.3); Nucleated Red Blood Cells 0.4 /100 WBC (0); Red Cell Distribution Width 15.6 % (11.5-14.5)
[2021-04-13 04:41] LABS: Eosinophils # 0.2 K/mcL (0.0-0.6); Hemoglobin 8.7 g/dL (11.5-15.4); Immature Granulocytes % 2.4 % (0-4); Immature Platelets 6.3 % (1.1-6.1); Lymphocytes # 0.3 K/mcL (0.6-4.6); Lymphocytes % 3.5 %; Mean Corpuscular HGB Conc 32.2 g/dL (31.6-35.5); Mean Corpuscular Volume 97.1 fL (83.0-100.0); Mean Platelet Volume 11.4 fL (9.4-12.4); Monocytes # 0.3 K/mcL (0.0-1.3); Monocytes % 4.3 %; Neutrophils # 6.9 K/mcL (1.6-8.9); Platelet Count 102 K/mcL (140-400); Red Blood Count 2.78 M/mcL (3.82-4.97); Segmented Neutrophils % 87.4 %; White Blood Count 7.9 K/mcL (4.3-11.1)
[2021-04-13 04:57] LABS: ABG Base Excess 5 mEq/L (-2 to 3); ABG HCO3 33 mEq/L (21-27); ABG Oxygen Saturation 91 % (95-98); ABG PCO2 68 mmHg (35-45); ABG PO2 71 mmHg (85-104); ABG TCO2 35 mEq/L (20-26); Blood Gas Modality AF; Blood Gas VT 450 cc
[2021-04-13] MEDS: Insulin LISPRO 300 UNITS/3 ML VIAL SUBQ SCH ×6 (04:58→23:32)
[2021-04-13] MEDS: *HR* Enoxaparin 60 MG/0.6 ML SYRINGE SQ SCH ×2 (05:28→17:16)
[2021-04-13] MEDS: FentaNYL (PF) 1,000 MCG/100 ML IV.SOLN IVC SCH ×3 (05:29→17:36)
[2021-04-13] MEDS: Norepinephrine 4 MG/254 ML IV.SOLN IVC SCH ×3 (05:55→19:57)
[2021-04-13] MEDS: Pantoprazole 40 MG VIAL IVP SCH (07:21)
[2021-04-13] MEDS: Chlorhexidine Rinse 15 ML MOUTHWASH MM SCH ×2 (07:21→20:42)
[2021-04-13] MEDS: Furosemide 20 MG/2 ML VIAL IVP SCH (07:22)
[2021-04-13] MEDS: FLUoxetine 20 MG CAPSULE PO SCH (07:23)
[2021-04-13] MEDS: Cholecalciferol (D-3) 1,000 UNIT (25MCG) TABLET PO SCH (07:23)
[2021-04-13] MEDS: Midazolam HCl 50 MG/100 ML IV.SOLN IVC SCH (09:44)
[2021-04-13] MEDS ORDERED: Clinimix 5%-20% SOLUTION 2,000 ML with MVI, adult with vitamin K 10 ML, ZN/CU/MN/SE 1... IVC SCH (17:00)
[2021-04-13] MEDS: Melatonin 3 MG TABLET PO SCH (19:56)
[2021-04-14] MEDS: FentaNYL (PF) 1,000 MCG/100 ML IV.SOLN IVC SCH ×5 (00:40→22:50)
[2021-04-14] MEDS: Ipratropium/Albuterol Neb 3 ML IH SCH ×7 (00:55→23:04)
[2021-04-14] MEDS: Vancomycin 2,000 MG/520 ML IV.SOLN IVPB SCH ×2 (03:39→13:02)
[2021-04-14] MEDS: Artificial Tears SOLN 15 ML BOTTLE BOTH EYES SCH ×6 (03:45→23:48)
[2021-04-14] MEDS: Cisatracurium 200 MG in 0.9 % Sodium Chloride 180 ML IVC SCH ×2 (04:05→13:49)
[2021-04-14] MEDS: Dexmedetomidine HCl 400 MCG/100 ML MLS IVC SCH ×4 (04:07→22:45)
[2021-04-14 04:33] LABS: Basophils # 0.1 K/mcL (0.0-0.2); Basophils % 0.5 %; Eosinophils # 0.2 K/mcL (0.0-0.6); Eosinophils % 1.9 %; Hematocrit 28.9 % (35.3-44.9); Immature Granulocytes % 4.4 % (0-4); Immature Platelets 7.4 % (1.1-6.1); Lymphocytes # 0.7 K/mcL (0.6-4.6); Lymphocytes % 6.7 %; Mean Corpuscular HGB Conc 31.1 g/dL (31.6-35.5); Mean Corpuscular Hemoglobin 30.5 pg (28.0-33.3); Mean Platelet Volume 10.8 fL (9.4-12.4); Monocytes # 0.5 K/mcL (0.0-1.3); Monocytes % 5.1 %; Neutrophils # 7.9 K/mcL (1.6-8.9); Nucleated Red Blood Cells 0.9 /100 WBC (0); Platelet Count 121 K/mcL (140-400); Red Blood Count 2.95 M/mcL (3.82-4.97); Red Cell Distribution Width 16.1 % (11.5-14.5); Segmented Neutrophils % 81.4 %; White Blood Count 9.7 K/mcL (4.3-11.1)
[2021-04-14] MEDS: Insulin LISPRO 300 UNITS/3 ML VIAL SUBQ SCH ×5 (04:33→20:05)
[2021-04-14 04:46] LABS: Alanine Aminotransferase 51 Units/L (7-52); Albumin 3.1 g/dL (3.5-5.7); Albumin/Globulin Ratio 1.1 (1.1-2.2); Aspartate Amino Transferase 56 Units/L (13-39); BUN/Creatinine Ratio 72 (6-26); Bilirubin,Total 0.6 mg/dL (0.3-1.0); Blood Urea Nitrogen 36 mg/dL (6-20); Calcium 9.1 mg/dL (8.6-10.3); Carbon Dioxide 30 mEq/L (23-29); Chloride 97 mEq/L (98-107); Globulin 2.9 g/dL (2.4-3.5); Glucose 175 mg/dL (70-105); Magnesium 2.2 mg/dL (1.6-2.6); Osmolality,Calculated 285 (280-300); Phosphorous 4.8 mg/dL (2.7-4.5); Potassium 4.8 mEq/L (3.5-5.1); Sodium 131 mEq/L (136-145); eGFR For African Americans > 60 (> 60); eGFR For Non-African Americans > 60 (> 60)
[2021-04-14 04:56] LABS: ABG Base Excess 2 mEq/L (-2 to 3); ABG HCO3 30 mEq/L (21-27); ABG Oxygen Saturation 77 % (95-98); ABG PCO2 66 mmHg (35-45); ABG PH 7.27 pH Units (7.32-7.45); ABG PO2 49 mmHg (85-104); ABG TCO2 32 mEq/L (20-26); Blood Gas Modality ASSIST CONTROL; Blood Gas VT 450 cc
[2021-04-14] MEDS: *HR* Enoxaparin 60 MG/0.6 ML SYRINGE SQ SCH ×2 (05:41→17:14)
[2021-04-14 06:24] LABS: Alkaline Phosphatase 130 Units/L (34-104)
[2021-04-14] MEDS: Norepinephrine 4 MG/254 ML IV.SOLN IVC SCH ×2 (07:11→14:50)
[2021-04-14] MEDS: Furosemide 20 MG/2 ML VIAL IVP SCH (08:36)
[2021-04-14] MEDS: Pantoprazole 40 MG VIAL IVP SCH (08:36)
[2021-04-14] MEDS: FLUoxetine 20 MG CAPSULE PO SCH (08:36)
[2021-04-14] MEDS: Cholecalciferol (D-3) 1,000 UNIT (25MCG) TABLET PO SCH (08:36)
[2021-04-14] MEDS: Chlorhexidine Rinse 15 ML MOUTHWASH MM SCH ×2 (08:37→20:05)
[2021-04-14] MEDS: Midazolam HCl 50 MG/100 ML IV.SOLN IVC SCH ×2 (08:52→23:49)
[2021-04-14] MEDS: Melatonin 3 MG TABLET PO SCH (20:04)
[2021-04-15] MEDS: Cisatracurium 200 MG in 0.9 % Sodium Chloride 180 ML IVC SCH ×3 (00:26→18:06)
[2021-04-15] MEDS: Insulin LISPRO 300 UNITS/3 ML VIAL SUBQ SCH ×6 (00:27→19:58)
[2021-04-15] MEDS: Dexmedetomidine HCl 400 MCG/100 ML MLS IVC SCH ×7 (01:00→21:56)
[2021-04-15] MEDS: Vancomycin 2,000 MG/520 ML IV.SOLN IVPB SCH ×2 (01:54→13:08)
[2021-04-15] MEDS: FentaNYL (PF) 1,000 MCG/100 ML IV.SOLN IVC SCH ×5 (02:32→20:13)
[2021-04-15] MEDS: Ipratropium/Albuterol Neb 3 ML IH SCH ×6 (03:13→23:10)
[2021-04-15 03:40] LABS: Hemoglobin 8.1 g/dL (11.5-15.4)
[2021-04-15 03:42] LABS: Hematocrit 26.2 % (35.3-44.9); Immature Platelets 6.4 % (1.1-6.1); Mean Corpuscular HGB Conc 30.9 g/dL (31.6-35.5); Mean Corpuscular Hemoglobin 30.9 pg (28.0-33.3); Mean Platelet Volume 10.9 fL (9.4-12.4); Nucleated Red Blood Cells 0.4 /100 WBC (0); Platelet Count 122 K/mcL (140-400); Red Blood Count 2.62 M/mcL (3.82-4.97); Red Cell Distribution Width 16.8 % (11.5-14.5); White Blood Count 7.8 K/mcL (4.3-11.1)
[2021-04-15 03:48] LABS: Alanine Aminotransferase 55 Units/L (7-52); Albumin 2.9 g/dL (3.5-5.7); Albumin/Globulin Ratio 1.1 (1.1-2.2); Alkaline Phosphatase 148 Units/L (34-104); Aspartate Amino Transferase 59 Units/L (13-39); BUN/Creatinine Ratio 60 (6-26); Bilirubin,Total 0.6 mg/dL (0.3-1.0); Blood Urea Nitrogen 41 mg/dL (6-20); Calcium 8.4 mg/dL (8.6-10.3); Carbon Dioxide 29 mEq/L (23-29); Chloride 99 mEq/L (98-107); Globulin 2.7 g/dL (2.4-3.5); Glucose 127 mg/dL (70-105); Magnesium 2.2 mg/dL (1.6-2.6); Osmolality,Calculated 284 (280-300); Phosphorous 6.2 mg/dL (2.7-4.5); Potassium 5.4 mEq/L (3.5-5.1); Sodium 131 mEq/L (136-145); Total Protein 5.6 g/dL (6.4-8.9); eGFR For African Americans > 60 (> 60); eGFR For Non-African Americans > 60 (> 60)
[2021-04-15] MEDS: Artificial Tears SOLN 15 ML BOTTLE BOTH EYES SCH ×6 (04:38→23:11)
[2021-04-15 04:45] LABS: ABG Base Excess 0 mEq/L (-2 to 3); ABG HCO3 28 mEq/L (21-27); ABG Oxygen Saturation 94 % (95-98); ABG PCO2 60 mmHg (35-45); ABG PH 7.27 pH Units (7.32-7.45); ABG PO2 84 mmHg (85-104); ABG TCO2 30 mEq/L (20-26); Blood Gas VT 450 cc
[2021-04-15 04:54] LABS: Eosinophils # 0.3 K/mcL (0.0-0.6); Lymphocytes # 0.6 K/mcL (0.6-4.6); Monocytes # 0.6 K/mcL (0.0-1.3); Neutrophils # 6.4 K/mcL (1.6-8.9)
[2021-04-15 04:55] LABS: Platelet Estimate Decreased (Normal)
[2021-04-15] MEDS: *HR* Enoxaparin 60 MG/0.6 ML SYRINGE SQ SCH ×2 (05:50→16:59)
[2021-04-15] MEDS: Norepinephrine 4 MG/254 ML IV.SOLN IVC SCH ×3 (07:40→14:18)
[2021-04-15] MEDS: Furosemide 20 MG/2 ML VIAL IVP SCH (07:43)
[2021-04-15] MEDS: FLUoxetine 20 MG CAPSULE PO SCH (07:43)
[2021-04-15] MEDS: Pantoprazole 40 MG VIAL IVP SCH (07:43)
[2021-04-15] MEDS: Cholecalciferol (D-3) 1,000 UNIT (25MCG) TABLET PO SCH (07:43)
[2021-04-15] MEDS: Chlorhexidine Rinse 15 ML MOUTHWASH MM SCH ×2 (07:43→19:59)
[2021-04-15] MEDS: Midazolam HCl 50 MG/100 ML IV.SOLN IVC SCH ×2 (08:08→18:08)
[2021-04-15] MEDS: Melatonin 3 MG TABLET PO SCH (19:59)
[2021-04-16] MEDS: FentaNYL (PF) 1,000 MCG/100 ML IV.SOLN IVC SCH ×6 (00:29→21:38)
[2021-04-16] MEDS: Insulin LISPRO 300 UNITS/3 ML VIAL SUBQ SCH ×7 (00:47→22:59)
[2021-04-16] MEDS: Dexmedetomidine HCl 400 MCG/100 ML MLS IVC SCH ×7 (01:10→23:55)
[2021-04-16] MEDS: Cisatracurium 200 MG in 0.9 % Sodium Chloride 180 ML IVC SCH ×4 (02:05→23:00)
[2021-04-16] MEDS: Vancomycin 2,000 MG/520 ML IV.SOLN IVPB SCH ×2 (02:50→13:32)
[2021-04-16] MEDS: Artificial Tears SOLN 15 ML BOTTLE BOTH EYES SCH ×6 (03:05→22:59)
[2021-04-16] MEDS: Ipratropium/Albuterol Neb 3 ML IH SCH ×6 (03:16→23:52)
[2021-04-16 03:23] LABS: Nucleated Red Blood Cells 1.1 /100 WBC (0)
[2021-04-16 03:25] LABS: Hematocrit 25.7 % (35.3-44.9); Hemoglobin 8.1 g/dL (11.5-15.4); Immature Platelets 5.8 % (1.1-6.1); Mean Corpuscular HGB Conc 31.5 g/dL (31.6-35.5); Mean Corpuscular Hemoglobin 31.5 pg (28.0-33.3); Mean Platelet Volume 10.8 fL (9.4-12.4); Platelet Count 136 K/mcL (140-400); Red Blood Count 2.57 M/mcL (3.82-4.97); Red Cell Distribution Width 16.8 % (11.5-14.5); White Blood Count 6.2 K/mcL (4.3-11.1)
[2021-04-16 03:31] LABS: Alanine Aminotransferase 74 Units/L (7-52); Alkaline Phosphatase 208 Units/L (34-104); Aspartate Amino Transferase 83 Units/L (13-39); BUN/Creatinine Ratio 74 (6-26); Bilirubin,Total 0.8 mg/dL (0.3-1.0); Blood Urea Nitrogen 49 mg/dL (6-20); Calcium 8.5 mg/dL (8.6-10.3); Carbon Dioxide 27 mEq/L (23-29); Chloride 99 mEq/L (98-107); Globulin 2.9 g/dL (2.4-3.5); Glucose 126 mg/dL (70-105); Magnesium 2.2 mg/dL (1.6-2.6); Osmolality,Calculated 285 (280-300); Phosphorous 6.4 mg/dL (2.7-4.5); Potassium 5.2 mEq/L (3.5-5.1); Sodium 130 mEq/L (136-145); Total Protein 5.9 g/dL (6.4-8.9); Triglycerides 146 mg/dL (< 150); eGFR For African Americans > 60 (> 60); eGFR For Non-African Americans > 60 (> 60)
[2021-04-16 04:33] LABS: Eosinophils # 0.1 K/mcL (0.0-0.6); Lymphocytes # 0.6 K/mcL (0.6-4.6); Monocytes # 0.1 K/mcL (0.0-1.3); Neutrophils # 5.3 K/mcL (1.6-8.9)
[2021-04-16 04:34] LABS: Platelet Estimate Slight Decrease (Normal)
[2021-04-16] MEDS: Midazolam HCl 50 MG/100 ML IV.SOLN IVC SCH ×3 (04:50→23:09)
[2021-04-16 04:52] LABS: ABG Base Excess 0 mEq/L (-2 to 3); ABG HCO3 29 mEq/L (21-27); ABG Oxygen Saturation 83 % (95-98); ABG PCO2 75 mmHg (35-45); ABG PH 7.19 pH Units (7.32-7.45); ABG PO2 61 mmHg (85-104); ABG TCO2 31 mEq/L (20-26); Blood Gas VT 450 cc
[2021-04-16] MEDS: *HR* Enoxaparin 60 MG/0.6 ML SYRINGE SQ SCH ×2 (05:17→18:03)
[2021-04-16] MEDS: Pantoprazole 40 MG VIAL IVP SCH (07:34)
[2021-04-16] MEDS: FLUoxetine 20 MG CAPSULE PO SCH (07:34)
[2021-04-16] MEDS: Cholecalciferol (D-3) 1,000 UNIT (25MCG) TABLET PO SCH (07:34)
[2021-04-16] MEDS: Furosemide 20 MG/2 ML VIAL IVP SCH (07:34)
[2021-04-16] MEDS: Chlorhexidine Rinse 15 ML MOUTHWASH MM SCH ×2 (07:34→19:07)
[2021-04-16] MEDS: Norepinephrine 4 MG/254 ML IV.SOLN IVC SCH ×3 (07:34→17:17)
[2021-04-16] MEDS: Melatonin 3 MG TABLET PO SCH (19:08)
[2021-04-17] MEDS: Norepinephrine 4 MG/254 ML IV.SOLN IVC SCH ×3 (00:17→19:27)
[2021-04-17] MEDS: FentaNYL (PF) 1,000 MCG/100 ML IV.SOLN IVC SCH ×6 (01:19→21:10)
[2021-04-17] MEDS: Artificial Tears SOLN 15 ML BOTTLE BOTH EYES SCH ×6 (03:22→23:14)
[2021-04-17] MEDS: Insulin LISPRO 300 UNITS/3 ML VIAL SUBQ SCH ×6 (03:23→23:14)
[2021-04-17 03:34] LABS: Hematocrit 27.9 % (35.3-44.9); Hemoglobin 8.7 g/dL (11.5-15.4); Immature Platelets 5.9 % (1.1-6.1); Lymphocytes # 0.4 K/mcL (0.6-4.6); Mean Corpuscular HGB Conc 31.2 g/dL (31.6-35.5); Mean Corpuscular Hemoglobin 30.7 pg (28.0-33.3); Mean Corpuscular Volume 98.6 fL (83.0-100.0); Mean Platelet Volume 10.9 fL (9.4-12.4); Nucleated Red Blood Cells 0.4 /100 WBC (0); Platelet Count 132 K/mcL (140-400); Red Blood Count 2.83 M/mcL (3.82-4.97); Red Cell Distribution Width 17.1 % (11.5-14.5); White Blood Count 5.3 K/mcL (4.3-11.1)
[2021-04-17] MEDS: Dexmedetomidine HCl 400 MCG/100 ML MLS IVC SCH ×8 (03:39→23:08)
[2021-04-17 03:46] LABS: Anisocytosis 1+ (Not Present); Eosinophils # 0.4 K/mcL (0.0-0.6); Neutrophils # 4.4 K/mcL (1.6-8.9); Platelet Estimate Normal (Normal)
[2021-04-17 03:48] LABS: VBG Ionized Calcium 1.24 mmol/L (1.15-1.35)
[2021-04-17 03:52] LABS: BUN/Creatinine Ratio 77 (6-26); Blood Urea Nitrogen 49 mg/dL (6-20); Calcium 8.9 mg/dL (8.6-10.3); Carbon Dioxide 28 mEq/L (23-29); Chloride 101 mEq/L (98-107); Glucose 115 mg/dL (70-105); Magnesium 2.2 mg/dL (1.6-2.6); Osmolality,Calculated 284 (280-300); Phosphorous 4.5 mg/dL (2.7-4.5); Potassium 4.4 mEq/L (3.5-5.1); Sodium 130 mEq/L (136-145); eGFR For African Americans > 60 (> 60); eGFR For Non-African Americans > 60 (> 60)
[2021-04-17] MEDS: Ipratropium/Albuterol Neb 3 ML IH SCH ×6 (04:08→23:32)
[2021-04-17 04:20] LABS: ABG Base Excess 0 mEq/L (-2 to 3); ABG HCO3 28 mEq/L (21-27); ABG Oxygen Saturation 79 % (95-98); ABG PCO2 61 mmHg (35-45); ABG PH 7.26 pH Units (7.32-7.45); ABG PO2 51 mmHg (85-104); ABG TCO2 30 mEq/L (20-26); Blood Gas VT 420 cc
[2021-04-17] MEDS: Vancomycin 1,500 MG/265 ML IV.SOLN IVPB SCH ×2 (05:06→17:13)
[2021-04-17] MEDS: *HR* Enoxaparin 60 MG/0.6 ML SYRINGE SQ SCH ×2 (05:06→17:13)
[2021-04-17] MEDS: Cisatracurium 200 MG in 0.9 % Sodium Chloride 180 ML IVC SCH ×3 (05:06→18:40)
[2021-04-17] MEDS: Furosemide 20 MG/2 ML VIAL IVP SCH (07:24)
[2021-04-17] MEDS: Chlorhexidine Rinse 15 ML MOUTHWASH MM SCH ×2 (07:24→19:29)
[2021-04-17] MEDS: Cholecalciferol (D-3) 1,000 UNIT (25MCG) TABLET PO SCH (07:24)
[2021-04-17] MEDS: Pantoprazole 40 MG VIAL IVP SCH (07:24)
[2021-04-17] MEDS: FLUoxetine 20 MG CAPSULE PO SCH (07:26)
[2021-04-17] MEDS: Midazolam HCl 50 MG/100 ML IV.SOLN IVC SCH ×3 (08:00→21:23)
[2021-04-17] MEDS: Melatonin 3 MG TABLET PO SCH (19:29)
[2021-04-17] MEDS: Cisatracurium 400 MG in 0.9 % Sodium Chloride 360 ML IVC SCH (23:07)
[2021-04-18] MEDS: FentaNYL (PF) 1,000 MCG/100 ML IV.SOLN IVC SCH ×3 (01:11→08:56)
[2021-04-18] MEDS: Dexmedetomidine HCl 400 MCG/100 ML MLS IVC SCH ×6 (01:44→16:00)
[2021-04-18] MEDS: Norepinephrine 4 MG/254 ML IV.SOLN IVC SCH ×2 (02:17→11:42)
[2021-04-18] MEDS: Midazolam HCl 50 MG/100 ML IV.SOLN IVC SCH ×3 (02:18→15:32)
[2021-04-18] MEDS: Insulin LISPRO 300 UNITS/3 ML VIAL SUBQ SCH ×4 (03:17→16:22)
[2021-04-18] MEDS: Artificial Tears SOLN 15 ML BOTTLE BOTH EYES SCH ×4 (03:17→16:21)
[2021-04-18 03:21] LABS: VBG Ionized Calcium 1.24 mmol/L (1.15-1.35)
[2021-04-18 03:29] LABS: Eosinophils # 0.3 K/mcL (0.0-0.6); Hematocrit 27.6 % (35.3-44.9); Hemoglobin 8.4 g/dL (11.5-15.4); Mean Corpuscular HGB Conc 30.4 g/dL (31.6-35.5); Mean Corpuscular Hemoglobin 30.7 pg (28.0-33.3); Mean Corpuscular Volume 100.7 fL (83.0-100.0); Mean Platelet Volume 10.8 fL (9.4-12.4); Monocytes # 0.3 K/mcL (0.0-1.3); Nucleated Red Blood Cells 0.7 /100 WBC (0); Platelet Count 133 K/mcL (140-400); Red Blood Count 2.74 M/mcL (3.82-4.97); Red Cell Distribution Width 17.4 % (11.5-14.5); White Blood Count 4.6 K/mcL (4.3-11.1)
[2021-04-18 03:42] LABS: Alanine Aminotransferase 68 Units/L (7-52); Albumin 2.7 g/dL (3.5-5.7); Albumin/Globulin Ratio 0.8 (1.1-2.2); Alkaline Phosphatase 199 Units/L (34-104); Aspartate Amino Transferase 63 Units/L (13-39); BUN/Creatinine Ratio 81 (6-26); Bilirubin,Total 0.6 mg/dL (0.3-1.0); Blood Urea Nitrogen 48 mg/dL (6-20); Calcium 8.8 mg/dL (8.6-10.3); Carbon Dioxide 24 mEq/L (23-29); Chloride 103 mEq/L (98-107); Globulin 3.3 g/dL (2.4-3.5); Glucose 114 mg/dL (70-105); Magnesium 2.1 mg/dL (1.6-2.6); Osmolality,Calculated 291 (280-300); Phosphorous 5.6 mg/dL (2.7-4.5); Potassium 4.2 mEq/L (3.5-5.1); Sodium 134 mEq/L (136-145); eGFR For African Americans > 60 (> 60); eGFR For Non-African Americans > 60 (> 60)
[2021-04-18] MEDS: Ipratropium/Albuterol Neb 3 ML IH SCH ×4 (03:53→15:48)
[2021-04-18 04:08] LABS: Anisocytosis 1+ (Not Present); Lymphocytes # 0.9 K/mcL (0.6-4.6); Neutrophils # 3.1 K/mcL (1.6-8.9); Platelet Estimate Normal (Normal); Polychromasia 1+ (Not Present); Reactive Lymphocytes Present (Not Present)
[2021-04-18 04:15] LABS: ABG Base Excess -1 mEq/L (-2 to 3); ABG HCO3 26 mEq/L (21-27); ABG Oxygen Saturation 75 % (95-98); ABG PCO2 55 mmHg (35-45); ABG PH 7.29 pH Units (7.32-7.45); ABG PO2 45 mmHg (85-104); ABG TCO2 28 mEq/L (20-26); Blood Gas VT 420 cc
[2021-04-18] MEDS: *HR* Enoxaparin 60 MG/0.6 ML SYRINGE SQ SCH (05:27)
[2021-04-18] MEDS: Vancomycin 1,500 MG/265 ML IV.SOLN IVPB SCH (05:28)
[2021-04-18] MEDS: Chlorhexidine Rinse 15 ML MOUTHWASH MM SCH (07:55)
[2021-04-18] MEDS: Furosemide 20 MG/2 ML VIAL IVP SCH (07:55)
[2021-04-18] MEDS: Pantoprazole 40 MG VIAL IVP SCH (07:55)
[2021-04-18] MEDS: Cisatracurium 400 MG in 0.9 % Sodium Chloride 360 ML IVC SCH (08:56)
[2021-04-18] MEDS ORDERED: Docusate Oral Soln 100 MG/10 ML UDC PO SCH (09:00)
[2021-04-18] MEDS: Cholecalciferol (D-3) 1,000 UNIT (25MCG) TABLET PO SCH (09:52)
[2021-04-18] MEDS: FLUoxetine 20 MG CAPSULE PO SCH (09:52)
[2021-04-18] MEDS ORDERED: FentaNYL (PF) 2,500 MCG/50 ML IV.SOLN IVC SCH (10:15)
[2021-04-18 16:54] VITALS: TEMP 101.6
[2021-04-18 17:09] VITALS: BP 44/23; PULSE 59; O2SAT 72
== END 2021-04-18 17:18 | disposition expired | DRG 870 ==
LOC: EMEROOARM 15:20 → 2NENU 15:20 → SUATTDRO 19:54 → ICNU 04-01 23:16
PROVIDERS: ADMIT Student in an Organized Health Care Education/Training Program; ATTEND Internal Medicine